=== PATIENT | male | born 1940 | race Caucasian/White ===

== ENCOUNTER 2016-12-04 21:52 | Emergency (ER) | payer OTHER ==
[~2016-12-04 21:52] MED LIST: ACET325T16 PO; AMOX1TAB11 PO; AMOX1TAB61 PO; Antacid PO; CEPH-264 PO; DOXY100T PO; LEVO25TA2 PO; LEVO25TA4 PO; LEVO50TA5 PO; LEVO75TA PO; Levothyroxine PO; MUPI15CR TP
[2016-12-04 22:02] VITALS: BP 146/83
[2016-12-04] MEDS ORDERED: IPRATRPIUM/ALBUTEROL 0.5/2.5MG 3 ML NEBU. NEB ONE (23:00)
[2016-12-04] MEDS ORDERED: AZIT250T PO (23:01)
[2016-12-04] MEDS ORDERED: PROVENTIL HFA6.7 GM IH (23:01)
--- NOTE | 2016-12-04 23:01 | PHYS DOC ---
Past Medical History Past Medical History: CVA, Hypothyroid, Other Additional Past Medical Histor: LOW HEART RHYTHM Past Surgical History: Other Additional Past Surgical Histo: HERNIA REPAIR, ingrown toe yaz, HEART MONITOR Alcohol Use: None Drug Use: None Adult General Chief Complaint Chief Complaint: COUGH HPI HPI 76-year-old male presents with 3-4 day history of cough. He states his son is been sick with an upper respiratory infection he thinks he's caught something from him. He states he doesn't typically have a lot of lung issues. Denies any fever chills sweats or hemoptysis. [] Review of Systems Review of Systems Constitutional: Denies fever or chills [] Eyes: Denies change in visual acuity, redness, or eye pain [] HENT: Denies nasal congestion or sore throat [] Respiratory: Denies cough or shortness of breath [] Cardiovascular: No additional information not addressed in HPI [] GI: Denies abdominal pain, nausea, vomiting, bloody stools or diarrhea [] : Denies dysuria or hematuria [] Musculoskeletal: Denies back pain or joint pain [] Integument: Denies rash or skin lesions [] Neurologic: Denies headache, focal weakness or sensory changes [] Endocrine: Denies polyuria or polydipsia [] Current Medications Current Medications Current Medications Medications (Trade) Dose Ordered Sig/Manny Start Time Stop Time Status Last Admin Dose Admin Albuterol/ Ipratropium (Duoneb) 3 ml 1X ONCE 12/04/16 23:00 12/04/16 23:01 12/04/16 22:36 3 ML Allergies Allergies Allergies Coded Allergies Type Severity Reaction Last Updated Verified chlorpheniramine Allergy Intermediate 07/03/16 Yes oxymetazoline Allergy Intermediate 07/03/16 Yes pheniramine Allergy Intermediate 07/03/16 Yes phenylephrine Allergy Intermediate 07/03/16 Yes pseudoephedrine Allergy Intermediate 07/03/16 Yes Physical Exam Physical Exam Constitutional: Well developed, well nourished, no acute distress, non-toxic appearance. [] HENT: Normocephalic, atraumatic, bilateral external ears normal, oropharynx moist, no oral exudates, nose normal. [] Eyes: PERRLA, EOMI, conjunctiva normal, no discharge. [] Neck: Normal range of motion, no tenderness, supple, no stridor. [] Cardiovascular:Heart rate regular rhythm, no murmur [] Lungs & Thorax: Mild apical wheezing [] Abdomen: Bowel sounds normal, soft, no tenderness, no masses, no pulsatile masses. [] Skin: Warm, dry, no erythema, no rash. [] Back: No tenderness, no CVA tenderness. [] Extremities: No tenderness, no cyanosis, no clubbing, ROM intact, no edema. [] Neurologic: Alert and oriented X 3, normal motor function, normal sensory function, no focal deficits noted. [] Psychologic: Affect normal, judgement normal, mood normal. [] Current Patient Data Vital Signs Vital Signs Date Time Temp Pulse Resp B/P Pulse Ox O2 Delivery O2 Flow Rate FiO2 12/04/16 22:34 95 Room Air 12/04/16 22:02 99.2 80 16 146/83 99.2 EKG EKG [] Radiology/Procedures Radiology/Procedures [] Impressions: Chest x-ray: No acute process as interpreted by me Course & Med Decision Making Course & Med Decision Making Pertinent Labs and Imaging studies reviewed. (See chart for details) [ED course: Evaluation reveals 76-year-old male in no significant distress. He did have some wheezing and was given a DuoNeb which did help alleviate his symptoms. Fill the patient is stable for discharge home] Dragon Disclaimer Dragon Disclaimer This electronic medical record was generated, in whole or in part, using a voice recognition dictation system. Departure Departure Impression: Primary Impression: Cough Disposition: 01 HOME, SELF-CARE Condition: STABLE Referrals: ANUM CESPEDES MD (PCP) Patient Instructions: Bronchitis Additional Instructions: Thank you for allowing us to participate in your care today. Followup with your primary care physician in 3 days if your symptoms do not improve. Return to the emergency department you have any new or concerning findings. This should be evaluated by the primary care physician and any necessary consulting services for continued management within a few days after discharge. Return to emergency room if you have any new or concerning symptoms including but not limited to fever, chills, nausea, vomiting, intractable pain, any new rashes, chest pain, shortness of air, uncontrolled bleeding, difficulty breathing, and/or vision loss. You may have been prescribed medication that can change in your level of thinking and ability to operate machinery. These medications include hydrocodone and Ativan. Also, Benadryl has been known to do this as well. Be sure to check with your pharmacist and ask if the medications you've prescribed can affect your level of consciousness. I recommend not operating heavy machinery or driving while on medication such as these. Scripts Albuterol Sulfate (Proventil Hfa Inhaler)6.7 Gm Hfa.aer.ad1 Puff IH PRN Q4HRS PRN bronchitis #1 INHALER NS Prov:JERMAINE NGUYEN DO 12/04/16 Azithromycin (Zithromax)250 Mg Tablet1 Pkg PO UD bronchitis #6 TAB Take 2 tablets on day 1 and then 1 tablet each day for the next 4 days as directed Prov:JERMAINE NGUYEN DO 12/04/16 JERMAINE NGUYEN DO Dec 04, 2016 23:01
--- NOTE | 2016-12-05 07:52 | RAD ---
EXAM: Chest, single view. HISTORY: Cough. COMPARISON: 07/02/2016. FINDINGS: A frontal view of the chest is obtained. There is no infiltrate, effusion or pneumothorax. The heart is normal in size. There is a cardiac event monitor overlying the left thorax. IMPRESSION: No acute pulmonary finding.
== END 2016-12-05 00:43 | disposition home or self-care (01) ==
LOC: ER 21:52
DX: R05 Cough (principal); R06.2 Wheezing; E03.9 Hypothyroidism, unspecified; Z88.8 Allergy status to other drugs, medicaments and biological substances; Z86.73 Personal history of transient ischemic attack (TIA), and cerebral infarction without residual deficits
CPT/HCPCS: 71010; 94250; 94640; 99283; J7620

== ENCOUNTER 2017-01-21 21:50 | Inpatient (IN) | payer OTHER ==
[~2017-01-21] VITALS: Ht 188 cm; Wt 87.3 kg
[~2017-01-21 21:50] MED LIST changes: +AZIT250T PO; +PROVENTIL HFA6.7 GM IH
[2017-01-21 22:32] LABS: BASO # 0.1 x10^3/uL (0.0-0.2); BASO % 1 % (0-3); EOS % 2 % (0-3); HEMATOCRIT 36.4 % (39.0-53.0); HEMOGLOBIN 12.5 g/dL (13.0-17.5); LYMPH # 2.4 x10^3/uL (1.0-4.8); LYMPH % 40 % (24-48); MEAN CORPUSCULAR HEMOGLOBIN 33 pg (25-35); MEAN CORPUSCULAR HGB CONC 35 g/dL (31-37); MEAN CORPUSCULAR VOLUME 95 fL (79-100); MONO % 12 % (0-9); NEUT % 45 % (31-73); PLATELET COUNT 160 x10^3/uL (140-400); RED BLOOD COUNT 3.82 x10^6/uL (4.30-5.70); RED CELL DISTRIBUTION WIDTH 13.9 % (11.5-14.5); WHITE BLOOD COUNT 6.2 x10^3/uL (4.0-11.0)
[2017-01-21 22:43] LABS: CALCIUM 8.8 mg/dL (8.5-10.1); GFR 72.6; POTASSIUM 3.8 mmol/L (3.5-5.1)
[2017-01-21 22:49] LABS: ALBUMIN 3.6 g/dL (3.4-5.0); ALBUMIN/GLOBULIN RATIO 1.1 (1.0-1.7); TOTAL BILIRUBIN 0.5 mg/dL (0.2-1.0)
[2017-01-21] MEDS ORDERED: NITROGLYCERIN SUBLINGUAL 0.4 MG BOTTLE OF 25. SL PRN (23:15)
[2017-01-21] MEDS ORDERED: MORPHINE SULFATE 4 MG/ML DISP.SYRIN. IV PRN (23:15)
[2017-01-21] MEDS ORDERED: ONDANSETRON PF 4 MG/2 ML VIAL. IV PRN (23:15)
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
[2017-01-22] VITALS (7 sets, daily range): BP systolic 98–133; BP diastolic 51–83
--- NOTE | 2017-01-22 07:27 | EKG ---
[facility] [address] [place] [address] Test Date: 2017-01-21 Test Time: 21:57:22 Pat Name: DIMITRI PIZANO Department: Room: [facility] Gender: M Vp & General Counsel: : 1940 Requested By: JERMAINE NGUYEN Order Number: [id number] Reading MD: Phillip Reyes Measurements Intervals [place] Rate: 66 P: 90 CT: 202 QRS: -2 QRSD: 130 T: 107 QT: 444 QTc: 467 Interpretive Statements SINUS RHYTHM PVCS LBBB Electronically Signed On 01-28-2017 10:47:15 [employer]OCKSTITCH by Phillip Reyes
--- NOTE | 2017-01-22 07:50 | RAD ---
Exam performed: One view chest. Indication: chest pain Date of Service: 01/22/2017 12:24 AM Comparison: 12/04/16. Single AP upright portable view chest findings: Cardiomediastinal silhouette is within upper limits of normal. No acute infiltrates, effusion or pneumothorax is detected. The bony structures are normal. Impression: No acute cardiopulmonary process is detected.
[2017-01-22] MEDS ORDERED: ACETAMINOPHEN 325 MG TABLET. PO PRN (08:30)
[2017-01-22] MEDS ORDERED: NITROGLYCERIN SUBLINGUAL 0.4 MG BOTTLE OF 25. SL PRN (08:30)
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
[2017-01-22] MEDS: ALBUTEROL SULFATE 2.5 MG/3 ML NEBU. NEB SCH ×3 (09:00→20:25)
[2017-01-22] MEDS: LEVOTHYROXINE 50 MCG TABLET PO SCH (09:00)
[2017-01-22] MEDS: PANTOPRAZOLE 40 MG TABLET. PO SCH (10:00)
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
--- NOTE | 2017-01-22 10:26 | EKG ---
[address] [place] [address] Test Date: 2017-01-22 Test Time: 10:25:28 Pat Name: DIMITRI PIZANO Department: Room: [facility] Gender: M Senior Data Modeler: LEANNA : 1940 Requested By: EMMANUELLE VEE Order Number: [id number] Reading MD: Phillip Reyes Measurements Intervals [place] Rate: 50 P: 58 MT: 216 QRS: -2 QRSD: 120 T: 34 QT: 472 QTc: 433 Interpretive Statements SINUS RHYTHM, RATE 50 LEFTWARD AXIS LOW LIMB LEAD VOLTAGE QRS(T) CONTOUR ABNORMALITY CONSISTENT WITH ANTERIOR INFARCT PROBABLY OLD T ABNORMALITY IN HIGH LATERAL LEADS ABNORMAL ECG RI6.01 Electronically Signed On 01-28-2017 10:52:19 SENIOR LOSS CONTROL SPECIALIST by Phillip Reyes
[2017-01-22] MEDS ORDERED: REGADENOSON 0.4 MG/5 ML DISP.SYRIN. IV ONE (11:30)
--- NOTE | 2017-01-22 14:27 | CARD ---
APPROVED REPORT EXAM: Two-dimensional and M-mode echocardiogram with Doppler and color Doppler. Other Information Quality : Good INDICATION Dyspnea Chest Pain 2D DIMENSIONS RVDd2.9 (2.9-3.5cm)Left Atrium(2D)3.5 (1.6-4.0cm) IVSd1.4 (0.7-1.1cm)Aortic Root(2D)3.2 (2.0-3.7cm) LVDd4.8 (3.9-5.9cm)LVOT Diameter2.0 (1.8-2.4cm) PWd1.1 (0.7-1.1cm)LVDs3.4 (2.5-4.0cm) FS (%) 27.9 %SV57.1 ml LVEF(%)55.0 (>50%) Aortic Valve AoV Peak David.189.3cm/sAoV VTI38.4cm AO Peak GR.14.3mmHgLVOT Peak David.143.6cm/s AO Mean GR.7mmHgAVA (VMAX)2.43cm2 AMY (VTI)2.60cm2 Mitral Valve MV E Fbbbeeeq63.1cm/sMV DECEL IGHY732kx MV A Tgcckezi35.1cm/sE/A Ratio0.9 Tricuspid Valve TR P. [id number]/sRAP [id number] TR Peak Gr.93urPvMCDL54duMx LEFT VENTRICLE The left ventricle is normal size. There is mild asymmetric septal hypertrophy. The left ventricular systolic function is normal. The Ejection Fraction is 60-65%. There is normal LV segmental wall motio n. Transmitral Doppler flow pattern is Grade I-abnormal relaxation pattern. RIGHT VENTRICLE The right ventricle is normal size. The right ventricular systolic function is normal. ATRIA The left atrium size is normal. The right atrium size is normal. The interatrial septum is intact wit h no evidence for an atrial septal defect or patent foramen ovale as noted on 2-D or Doppler imaging. AORTIC VALVE The aortic valve is mildly thickened but opens well. Doppler and Color Flow revealed no significant a ortic regurgitation. There is no significant aortic valvular stenosis. MITRAL VALVE The mitral valve is normal in structure and function. There is no evidence of mitral valve prolapse. There is no mitral valve stenosis. Doppler and Color-flow revealed mild mitral regurgitation. TRICUSPID VALVE The tricuspid valve is normal in structure and function. Doppler and Color Flow revealed mild tricusp id regurgitation. There is mild pulmonary hypertension. The PA pressure was estimated at 35 mmHg. The re is no tricuspid valve stenosis. PULMONIC VALVE The pulmonary valve is normal in structure and function. Doppler and Color Flow revealed trace pulmon ic valvular regurgitation. There is no pulmonic valvular stenosis. GREAT VESSELS The aortic root is normal in size. The ascending aorta is normal in size. The IVC is normal in size a nd collapses >50% with inspiration. PERICARDIAL EFFUSION There is no evidence of significant pericardial effusion. Critical Notification Critical Value: No <Conclusion> The left ventricular systolic function is normal. The Ejection Fraction is 60-65%. There is normal LV segmental wall motion. Mild mitral regurgitation. Mild tricuspid regurgitation. There is mild pulmonary hypertension. The PA pressure was estimated at 35 mmHg. There is no evidence of significant pericardial effusion.
--- NOTE | 2017-01-23 00:04 | ACF ---
Admission Forms Criteria CARDIOLOGY GRG Clinical Indications for Admission to Inpatient Care ( Place 'X' for any and all applicable criteria): Hospital admission is needed for appropriate care of the patient because of ANY ONE of the following (1): [ ] I. Hemodynamic instability as indicated by ALL of the following (1)(2)(3) (4)(5) [ ]a) Vital signs or other findings not as expected for chronic patient condition or baseline [ ]b) Instability indicated by ANY ONE of the following: [ ]i) Hypotension [ ]ii) Symptomatic Tachycardia unresponsive to treatment ( e.g., analgesia, fluids, sedation as indicated) [ ]iii) Inadequate perfusion indicated by ANY ONE of the following: [ ] 1) Lactic acidosis (> 2 mmol/L) [ ] 2) New abnormal capillary refill (> 3 seconds) [ ] 3) Reduced urine output [ ] 4) New altered mental status [ ]iv) Orthostatic vital sign changes unresponsive to treatment (e.g., fluids) [ ]v) IV inotropic or vasopressor medication required to maintain adequate blood pressure or perfusion [ ] II. Severe heart failure as indicated by ANY ONE of the following(17)(18) [ ]a) Respiratory distress [ ]b) Hypotension [ ]c) Anasarca (refractory to outpatient therapy) [ ]d) Cardiac arrhythmias of immediate concern [ ]e) Myocardial ischemia [ ] III. Cardiac arrhythmias or findings of immediate concern indicated by ANY ONE of the following (19)(20): [ ] a) Heart rhythms that are inherently dangerous or unstable indicated by ANY ONE of the following (21)(22)(23): [ ] i) Resuscitated ventricular fibrillation or cardiac arrest [ ] ii) Ventricular escape rhythm [ ] iii) Sustained ventricular tachycardia (30 seconds or more of ventricular rhythm at greater than 100 beats per minute) [ ] iv) Nonsustained ventricular tachycardia and ANY ONE of the following: [ ] 1) Suspected cardiac ischemia as cause or consequence of ventricular tachycardia [ ] 2) In setting of acute myocarditis [ ] b) Unstable cardiac conduction defects indicated by ANY ONE of the following(23)(24)(25) [ ] i) Type II second-degree atrioventricular block [ ]ii) Third-degree atrioventricular block [ ]iii) New-onset left bundle branch block with suspected myocardial ischemia [ ]c) Any heart rhythm and ANY ONE of the following (21)(22)(26)(27) (28) [ ] i) Continuous long-term ECG monitoring needed (e.g., initiation of drug requiring monitoring for more than 24 hours) [ ] ii) Patient has automatic implanted cardioverter defibrillator that is repeatedly firing, malfunctioning, or in need of immediate adjustment of settings beyond the scope of ambulatory or observation care [ ]d) Heart rhythms of concern due to ANY ONE of the following: [ ] i) Hypotension [ ] ii) Respiratory distress [ ] iii) Association with other significant symptoms (e.g., bradycardia with syncope or ongoing dizziness, supraventricular tachycardia with chest pain (14)(15)(17) [ ] IV. Monitoring for cardiac contusion beyond the scope of observation care needed [A](30)(31)(32) [ ] V. Surgical or device complication (e.g., valve replacement complication , pacemaker dysfunction) (35)(41)(44)(45)(46) [ ] . Inpatient palliative care needed. [B](49) Also use Inpatient Palliative Care Criteria [ ] VII. Nonbacterial thrombotic (marantic) endocarditis (36)(43)(47)(48) [X] VIII. Cardiology condition, symptom, or finding for which emergency and observation care has failed or are not considered appropriate. [ ] IX. Acute valvular disease requiring inpatient as indicated by ANY ONE of the following (41) [ ]a) Acute valvular regurgitation (42) [ ]b) Noninfectious valvulitis (43) [ ]c) Obstructive valve thrombosis [ ]d) Paravalvular leak [ ]e) Other significant valvular disorder remaining after emergency or observation level of care (as appropriate) [ ]X. Pericardial disease requiring inpatient treatment as indicated by ANY ONE of the following (33)(34)(35)(36)(37) [ ]a) Suspected tamponade (38)(39)(40) [ ]b) Hemopericardium [ ]c) Other significant pericardial disorder remaining after emergency or observation level of care (as appropriate) [ ] XI. Cardiac ischemia beyond scope of emergency and observation care. [ ] XII. Hypertension requiring inpatient treatment as indicated by ANY ONE of the following (6)(7)(8) [ ]a) SBP greater than 220 mm Hg or DBP greater than 120 mmHg despite treatment [ ]b) SBP greater than 140 mm Hg or DBP greater than 100 mm Hg with evidence of acute end organ damage as indicated by ANY ONE of the following [ ] i) Encephalopathy [ ] ii) Acute renal failure as indicated by new onset of ANY ONE of the following (9)(10)(11)(12)(13) [ ]1) 3-fold rise in serum creatinine from baseline [ ]2) Serum creatinine greater than 4 mg/dL ( 354 micromoles/L) with acute rise greater than 0.5 mg/dL (44.2 micromoles/L) [ ]3) Reduction of more than 75% in estimated glomerular filtration rate from baseline [ ]4) Estimated glomerular filtration rate less than 35 mL/min/1.73m2 (0.59 mL/sec/1.73m2) in child up to 18 years of age [ ]5) Cessation of urine output indicated by ALL of the following [ ]A. Adequate volume status [ ]B. Inadequate urine output as indicated by ANY ONE of the following [ ]a. Urine output less than 0.3 mL/kg/hr for 24 hours [ ]b. Anuria (urine output less than 0.1 mL/kg/hr) for 12 hours [ ] iii) Aortic dissection [ ] iv) Myocardial Ischemia [ ] v) Left ventricular heart failure [ ]vi) Retinal Hemorrhage [ ]vii) Other significant finding [ ]c) Hypertension in child requiring inpatient treatment as indicated by ALL of the following(14)(15)(16) [ ] i) Outpatient treatment not effective, not available, or not appropriate [ ]ii) SBP or DBP greater than 95th percentile for age [ ]iii) Evidence of acute end organ damage as indicated by ANY ONE of the following [ ]1) Altered mental status [ ]2) Acute renal failure as indicated by new onset of ANY ONE of the following(9)(10)(11)(12)(13) [ ]A. 3-fold rise in serum creatinine from baseline [ ]B. Serum creatinine greater than 4 mg/dL (354 micromoles/L) with acute rise greater than 0.5 mg/dL (44.2 micromoles/L) [ ]C. Reduction of more than 75% in estimated glomerular filtration rate from baseline [ ]D. Estimated glomerular filtration rate less than 35 mL/min/1.73m2 (0.59 mL/sec/1.73m2) in child up to 18 years of age [ ]E. Cessation of urine output indicated by ALL of the following [ ]a. Adequate volume status [ ]b. Inadequate urine output as indicated by ANY ONE of the following [ ]i) Urine output less than 0.3 mL/kg/hr for 24 hours [ ]ii) Anuria ( urine output less than 0.1 mL/kg/hr) for 12 hours [ ]3) Severe headache [ ]4) Visual disturbance [ ]5) Retinal hemorrhage [ ]6) Other significant finding [ ]XIII. Complications of transplanted heart indicated by ANY ONE of the following(61): [ ]a) Acute graft rejection requiring inpatient management (eg, intravenous immunosuppression)(62)(63) [ ]b) Acute graft heart failure indicated by ANY ONE of the following(64): [ ]i) Hemodynamic instability [ ]ii) Cardiac arrhythmias of immediate concern [ ]iii) Pulmonary edema that is very severe (eg, mechanical ventilation needed, imminent or likely, need for 100% oxygen to keep oxygen saturation above 90%) [ ]iv) Pulmonary edema that is persistent as indicated by ALL of the following: [ ]1) New need for oxygen therapy to keep oxygen saturation above 90% (or increased FiO2 need from baseline) [ ]2) Has not improved sufficiently with emergency department or observation care IV diuretics or other heart failure treatments[E] [ ]v) Altered mental status that is severe or persistent [ ]vi) Increased creatinine (new on laboratory test) with reduction of more than 50% in estimated glomerular filtration rate from baseline [ ]vii) Progressively (ongoing) rising creatinine (known from past laboratory test) with reduction of more than 25% in estimated glomerular filtration rate from baseline [ ]viii) Acute renal failure [ ]ix) Acute peripheral ischemia (eg, examination shows pulseless, cool, mottled, or cyanotic extremity) [ ]x) Pulmonary artery catheter monitoring needed [ ]xi) Other sign or symptom of heart failure requiring inpatient treatment (ie, too severe or not responsive to outpatient and observation care treatment) [ ]c) Infection requiring inpatient management (eg, Hemodynamic instability, need for intravenous antimicrobial treatment)(66)(67)(68)(69)(70) [ ]d) Cardiac allograft vasculopathy requiring inpatient management ( eg evidence of cardiac ischemia)(71) [ ]e) Other complication of transplanted heart (eg, stroke, severe pulmonary hypertension, severe valvular dysfunction) requiring inpatient management(72) The original [facility] content created by [facility] has been revised. The portions of the content which have been revised are identified through the use of italic text or in bold, and [facility] has neither reviewed nor approved the modified material. All other unmodified content is copyright [facility]. Please see references footnoted in the original [facility] edition 2016 Admission Criteria Met?: Yes BREE HENDERSON Jan 23, 2017 00:04
[2017-01-23] MEDS: LEVOTHYROXINE 50 MCG TABLET PO SCH (05:37)
[2017-01-23 05:45] LABS: BASO % 1 % (0-3); EOS % 2 % (0-3); HEMATOCRIT 35.1 % (39.0-53.0); HEMOGLOBIN 12.1 g/dL (13.0-17.5); LYMPH % 44 % (24-48); MEAN CORPUSCULAR HEMOGLOBIN 33 pg (25-35); MEAN CORPUSCULAR HGB CONC 35 g/dL (31-37); MEAN CORPUSCULAR VOLUME 96 fL (79-100); MONO % 12 % (0-9); NEUT % 41 % (31-73); PLATELET COUNT 138 x10^3/uL (140-400); RED BLOOD COUNT 3.68 x10^6/uL (4.30-5.70); WHITE BLOOD COUNT 4.5 x10^3/uL (4.0-11.0)
[2017-01-23 06:01] LABS: CALCIUM 8.4 mg/dL (8.5-10.1); GFR 72.6; POTASSIUM 3.8 mmol/L (3.5-5.1)
[2017-01-23 06:07] LABS: CHOLESTEROL/HDL RATIO 3.4
[2017-01-23 07:15] VITALS: BP 99/63
[2017-01-23] MEDS: ALBUTEROL SULFATE 2.5 MG/3 ML NEBU. NEB SCH ×3 (07:20→15:06)
--- NOTE | 2017-01-23 07:59 | PDOC ---
EMMANUELLE VEE RESEARCH INTERVIEWER 01/23/17 0759: IM PROGRESS NOTES- Subjective Subjective no chest pain through night Objective Objective alert no distress Vitals Vital Signs Date Time Temp Pulse Resp B/P Pulse Ox O2 Delivery O2 Flow Rate FiO2 01/23/17 07:21 96 Room Air 01/22/17 23:00 98.6 56 18 133/59 98.6 Input & Output Intake and Output 01/23/17 07:00 Intake Total 2040 ml Balance 2040 ml Intake Oral 2040 ml # Voids 5 Physical Exam Physical Exam General appearance - alert,well appearing, and in no distress Mental Status - alert, oriented to person, place, and time, affect appropriate to mood Head - normal Chest - clear to auscultation, no wheezes, rales or rhonchi, symmetric air entry Heart - S1 and S2 normal Abdomen - soft, nontender, nondistended, BS+ Neurological - no acute focal neurological deficit noted Musculoskeletal - no muscular tenderness noted Extremities - lower leg swelling improved slightly, venous stasis changes chronic Skin - warm and dry Labs Laboratory Tests Test 01/21/17 22:05 01/22/17 05:05 01/22/17 11:00 01/23/17 04:50 White Blood Count 6.2x10^3/uL (4.0-11.0) 4.5x10^3/uL (4.0-11.0) Red Blood Count 3.82x10^6/uL (4.30-5.70) 3.68x10^6/uL (4.30-5.70) Hemoglobin 12.5g/dL (13.0-17.5) 12.1g/dL (13.0-17.5) Hematocrit 36.4% (39.0-53.0) 35.1% (39.0-53.0) Mean Corpuscular Volume 95fL (79-100) 96fL (79-100) Mean Corpuscular Hemoglobin 33pg (25-35) 33pg (25-35) Mean Corpuscular Hemoglobin Concent 35g/dL (31-37) 35g/dL (31-37) Red Cell Distribution Width 13.9% (11.5-14.5) 14.0% (11.5-14.5) Platelet Count 160x10^3/uL (140-400) 138x10^3/uL (140-400) Neutrophils (%) (Auto) 45% (31-73) 41% (31-73) Lymphocytes (%) (Auto) 40% (24-48) 44% (24-48) Monocytes (%) (Auto) 12% (0-9) 12% (0-9) Eosinophils (%) (Auto) 2% (0-3) 2% (0-3) Basophils (%) (Auto) 1% (0-3) 1% (0-3) Neutrophils # (Auto) 2.8x10^3uL (1.8-7.7) 1.8x10^3uL (1.8-7.7) Lymphocytes # (Auto) 2.4x10^3/uL (1.0-4.8) 2.0x10^3/uL (1.0-4.8) Monocytes # (Auto) 0.8x10^3/uL (0.0-1.1) 0.5x10^3/uL (0.0-1.1) Eosinophils # (Auto) 0.1x10^3/uL (0.0-0.7) 0.1x10^3/uL (0.0-0.7) Basophils # (Auto) 0.1x10^3/uL (0.0-0.2) 0.0x10^3/uL (0.0-0.2) Sodium Level 143mmol/L (136-145) 146mmol/L (136-145) Potassium Level 3.8mmol/L (3.5-5.1) 3.8mmol/L (3.5-5.1) Chloride Level 105mmol/L (98-107) 111mmol/L (98-107) Carbon Dioxide Level 29mmol/L (21-32) 26mmol/L (21-32) Anion Gap 9 (6-14) 9 (6-14) Blood Urea Nitrogen 14mg/dL (8-26) 10mg/dL (8-26) Creatinine 1.0mg/dL (0.7-1.3) 1.0mg/dL (0.7-1.3) Estimated GFR (Cockcroft-Gault) 72.6 72.6 BUN/Creatinine Ratio 14 (6-20) Glucose Level 94mg/dL (70-99) 105mg/dL (70-99) Calcium Level 8.8mg/dL (8.5-10.1) 8.4mg/dL (8.5-10.1) Total Bilirubin 0.5mg/dL (0.2-1.0) Aspartate Amino Transf (AST/SGOT) 31U/L (15-37) Alanine Aminotransferase (ALT/SGPT) 29U/L (16-63) Alkaline Phosphatase 61U/L (46-116) Troponin I Quantitative 0.024ng/mL (0.000-0.055) < 0.017ng/mL (0.000-0.055) 0.023ng/mL (0.000-0.055) Total Protein 7.0g/dL (6.4-8.2) Albumin 3.6g/dL (3.4-5.0) Albumin/Globulin Ratio 1.1 (1.0-1.7) Triglycerides Level 66mg/dL (0-150) Cholesterol Level 152mg/dL (0-200) LDL Cholesterol, Calculated 94mg/dL (0-100) VLDL Cholesterol, Calculated 13mg/dL (0-40) HDL Cholesterol 45mg/dL (40-60) Cholesterol/HDL Ratio 3.4 Laboratory Tests Test 01/22/17 11:00 01/23/17 04:50 Troponin I Quantitative 0.023ng/mL (0.000-0.055) White Blood Count 4.5x10^3/uL (4.0-11.0) Red Blood Count 3.68x10^6/uL (4.30-5.70) Hemoglobin 12.1g/dL (13.0-17.5) Hematocrit 35.1% (39.0-53.0) Mean Corpuscular Volume 96fL (79-100) Mean Corpuscular Hemoglobin 33pg (25-35) Mean Corpuscular Hemoglobin Concent 35g/dL (31-37) Red Cell Distribution Width 14.0% (11.5-14.5) Platelet Count 138x10^3/uL (140-400) Neutrophils (%) (Auto) 41% (31-73) Lymphocytes (%) (Auto) 44% (24-48) Monocytes (%) (Auto) 12% (0-9) Eosinophils (%) (Auto) 2% (0-3) Basophils (%) (Auto) 1% (0-3) Neutrophils # (Auto) 1.8x10^3uL (1.8-7.7) Lymphocytes # (Auto) 2.0x10^3/uL (1.0-4.8) Monocytes # (Auto) 0.5x10^3/uL (0.0-1.1) Eosinophils # (Auto) 0.1x10^3/uL (0.0-0.7) Basophils # (Auto) 0.0x10^3/uL (0.0-0.2) Sodium Level 146mmol/L (136-145) Potassium Level 3.8mmol/L (3.5-5.1) Chloride Level 111mmol/L (98-107) Carbon Dioxide Level 26mmol/L (21-32) Anion Gap 9 (6-14) Blood Urea Nitrogen 10mg/dL (8-26) Creatinine 1.0mg/dL (0.7-1.3) Estimated GFR (Cockcroft-Gault) 72.6 Glucose Level 105mg/dL (70-99) Calcium Level 8.4mg/dL (8.5-10.1) Triglycerides Level 66mg/dL (0-150) Cholesterol Level 152mg/dL (0-200) LDL Cholesterol, Calculated 94mg/dL (0-100) VLDL Cholesterol, Calculated 13mg/dL (0-40) HDL Cholesterol 45mg/dL (40-60) Cholesterol/HDL Ratio 3.4 Meds Current Medications Acetaminophen (Tylenol) 650 mg PRN Q6HRS PRN PO MILD PAIN / TEMP; Start at 08:30 Albuterol Sulfate (Ventolin Neb Soln) 2.5 mg RTQID NEB Last administered on 01/23 07:20; Start 01/22/17 at 09:00 Aspirin (Ecotrin) 81 mg DAILYWBKFT PO ; Start 01/23/17 at 08:00 Levothyroxine Sodium (Synthroid) 50 mcg DAILY06 PO Last administered on 05:37; Start 01/22/17 at 09:00 Nitroglycerin (Nitrostat) 0.4 mg PRN Q5MIN PRN SL CHEST PAIN; Start 01/22/17 at 08:30 Pantoprazole Sodium (Protonix) 40 mg DAILYAC PO ; Start 01/22/17 at 10:00 Regadenoson (Lexiscan) 0.4 mg 1X ONCE IV ; Start 01/22/17 at 11:30; Stop at 11:31; Status DC Assessment Assessment Impression: 1. chest pain 2. hypothyroidism 3. GERD 4. HH 5. allergic rhinitis 6. 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 borderline CM ECHO EF 60-65% 8. anemia chronic disease 9 mild MR TR 10. mild pulmonary HTN 11. chronic moderate PCL malnutrition 12. chronic venous stasis bilateral LE with swelling 13. h/o loop recorder PLAN: chest pain cardiology consult ECHO EF 60-65% mild MR TR mild pulmonary HTN Admit troponin 0.024 01/22 0.017 EKG SR admit NTG prn not on telemetry -no telemetry boxes available per staff-telemetry on 01/23 SR with PVCs unifocal MPI pending loop recorder interrogation pending shortness of breath exposure to smoke/mold begin albuterol nebulizer qid-hold proair CXR clear Breath sounds clear hypothyroid continue meds anemia CD Admit Hgb 12.5 01/23 12.1 monitor DVT/GI prophylaxis SCD/JAZMYN PPI swelling/stasis dermatitis bilateral legs chronic For further plan of care, please refer to the orders. Plan Plan For more details regarding further plans, please refer to the orders. ANUM CESPEDES MD 01/23/17 0953: IM PROGRESS NOTES- Assessment Assessment Improving. Discharge later today if stress test ok. The patient was seen and examined by me. Chart reviewed and plan of care formulated. Discussed with, reviewed and agree with PRECISION [employer]CRAFT SYSTEMS ASSEMBLER's notes, plan of care and orders with modifications as necessary. Discharge Management - 35 minutes. EMMANUELLE VEE APRN Jan 23, 2017 07:59 ANUM CESPEDES MD Jan 23, 2017 09:53
[2017-01-23] MEDS ORDERED: ASPIRIN ENTERIC COATED 81 MG TABLET.DR. PO SCH (08:00)
--- NOTE | 2017-01-23 08:00 | DISCH ---
DISCHARGE INSTRUCTIONS Condition on Discharge Condition on Discharge: Stable Activity After Discharge Activity Instructions for Disc: Activity as tolerated Diet after Discharge Diet after Discharge: Cardiac Contacting the DRPadmini after DC Call your doctor for: Concerns you may have Follow-Up Follow up with: Dr. Light or Fran in 3 days EMMANUELLE VEE APRN Jan 23, 2017 08:00
[2017-01-23] MEDS ORDERED: ASPI81TA9 PO (08:01)
[2017-01-23] MEDS ORDERED: REGADENOSON 0.4 MG/5 ML DISP.SYRIN. IV ONE (08:45)
[2017-01-23] MEDS: PANTOPRAZOLE 40 MG TABLET. PO SCH (10:18)
--- NOTE | 2017-01-23 10:48 | PDOC ---
CARDIO Progress Notes Date and Time Date of Service 01/23/2017 Time of Evaluation 1000 Subjective Subjective: No Chest Pain, No shortness of breath, No Palpitations, No Dizziness Vitals Vitals Vital Signs Date Time Temp Pulse Resp B/P Pulse Ox O2 Delivery O2 Flow Rate FiO2 01/23/17 07:21 96 Room Air 01/23/17 07:15 97.5 79 20 99/63 97.5 Weight Weight [ ] Input and Output Intake and Output Intake and Output 01/23/17 07:00 Intake Total 2040 ml Balance 2040 ml Intake Oral 2040 ml # Voids 5 Laboratory Labs Laboratory Tests Test 01/22/17 11:00 01/23/17 04:50 Troponin I Quantitative 0.023ng/mL (0.000-0.055) White Blood Count 4.5x10^3/uL (4.0-11.0) Red Blood Count 3.68x10^6/uL (4.30-5.70) Hemoglobin 12.1g/dL (13.0-17.5) Hematocrit 35.1% (39.0-53.0) Mean Corpuscular Volume 96fL (79-100) Mean Corpuscular Hemoglobin 33pg (25-35) Mean Corpuscular Hemoglobin Concent 35g/dL (31-37) Red Cell Distribution Width 14.0% (11.5-14.5) Platelet Count 138x10^3/uL (140-400) Neutrophils (%) (Auto) 41% (31-73) Lymphocytes (%) (Auto) 44% (24-48) Monocytes (%) (Auto) 12% (0-9) Eosinophils (%) (Auto) 2% (0-3) Basophils (%) (Auto) 1% (0-3) Neutrophils # (Auto) 1.8x10^3uL (1.8-7.7) Lymphocytes # (Auto) 2.0x10^3/uL (1.0-4.8) Monocytes # (Auto) 0.5x10^3/uL (0.0-1.1) Eosinophils # (Auto) 0.1x10^3/uL (0.0-0.7) Basophils # (Auto) 0.0x10^3/uL (0.0-0.2) Sodium Level 146mmol/L (136-145) Potassium Level 3.8mmol/L (3.5-5.1) Chloride Level 111mmol/L (98-107) Carbon Dioxide Level 26mmol/L (21-32) Anion Gap 9 (6-14) Blood Urea Nitrogen 10mg/dL (8-26) Creatinine 1.0mg/dL (0.7-1.3) Estimated GFR (Cockcroft-Gault) 72.6 Glucose Level 105mg/dL (70-99) Calcium Level 8.4mg/dL (8.5-10.1) Triglycerides Level 66mg/dL (0-150) Cholesterol Level 152mg/dL (0-200) LDL Cholesterol, Calculated 94mg/dL (0-100) VLDL Cholesterol, Calculated 13mg/dL (0-40) HDL Cholesterol 45mg/dL (40-60) Cholesterol/HDL Ratio 3.4 Physical Exam HEENT: Neck Supple W Full Motion Chest: Symmetric LUNGS: Clear to Auscultation Heart: S1S2, RRR (SR with intermittent PVCs), murmurs (2/6 systolic murmur to LLS border) Abdomen: Soft N/T Extremities: No Calf Tenderness, Other (trace LE edema) Neurology: alert, oriented, follow commands, other (severely [place]) Assessment Assessment 1. Chest pain: EKG unchanged LBBB with first degree AV block. troponin series normal. CXR normal. Suspect noncardiac 2. [employer] loop recorder: 05/27/2014 for hx bradycardia presyncope. 3. PAFIB: New finding. noted x2 episodes in tele and noted via ILR interrogation. 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 Hypothyroidism: nontherapeutic TSH 5.4 6. Mold exposure 7. Hx of CVA Recommendations 1. MPI today to completely rule out ischemia (cancelled yesterday since pt ate) 2. Lipids controlled. LDL 98, start on low dose lipitor 3. ECASA 81 mg po daily for primary prevention 4. Warranting OAC/NOAC. discussed risks and benefits, refused and agreed with ASA. 5. Unable to place on BB/CCB due to hx of bradycardia 6. Continue with ILR, monitor as outpt and note if future PPM is warranted. 7. TTE normal wall motion with preserved EF. Further recommendation post MPI BRANT STANLEY APRN 1, 2017 10:48
[2017-01-23 11:06] VITALS: BP 104/59
[2017-01-23] MEDS ORDERED: ASPIRIN ENTERIC COATED 81 MG TABLET.DR. PO ONE (12:00)
--- NOTE | 2017-01-23 13:19 | RAD ---
APPROVED REPORT Test Type: Pharmacological Stress Nurse/Tech: ROBIN Gonzalez RN Test Indications: Chest pain Cardiac History: HTN, ICD, CVA see EHR Medications: see EHR Medical History: see EHR Resting ECG: SR with frequent PVC Resting Heart Rate: 76 bpm Resting Blood Pressure: 110/59mmHg Pretest Chest Pain: No chest pain Nurse/Tech Notes Lungs CTA, heart tones WNL Consent: The procedure was explained to the patient in lay terms. Informed consent was witnessed. Timur eout was entered into [employer]. History and Stress Test performed by RT Kori (R) (N) Pharm. Details Pharmacologic stress testing was performed using 0.4mg per 5ml of regadenoson given intravenously ove r 7-10 seconds. Stress Symptoms No chest pain or symptoms. POST EXERCISE Reason for Termination: Infusion complete Max HR: 101 bpm 82% of Maximum Predicted HR: 122 bpm Max Blood Pressure: 127/61mmHg Chest Pain: No. Arrhythmia: Yes. ST Change: No. INTERPRETATION Stress EKG Conclusion: Baseline EKG showed sinus rhythm with PVC's. No ischemic changes at peak stre ss. No arrhythmias. Imaging Protocol IMAGE PROTOCOL: Rest Tc-99m/stress Tc-99m 2 days Rest: Stress: Viability: Radiopharm.Tc99m [id number] Sestamibi Dose10.1mCi 33mCi Duration 15min. 10min. Img Date 01/22/2017 01/23/2017 Inj-Img [id number]. 60min. Rest Admin Site:IV - Left AntecubitalAdministrator:RT Kori (R)(N) Stress Admin Site: IV - Left AntecubitalAdministrator: MICHOACANO Benson STRESS DATA End Diast. Vol.81.0mlAv. Heart Rate81.0bpm End Syst. Vol.22.0mlCO Index BSA0.0L/min Myocardial Tcne641.0gEject. Kijzhyfg04.0% Stress Rates Pk. Fill Rate3.96EDV/secLVtime Pk. Fill 241.69msec Pk. Empty Rate5.45ESV/secLVtime Pk. Hpmnv782.57msec 11/27 Pk. Fill0.52EDV/sec Stress Scores Regional WT0.00Summed WT1.00 Regional WM0.00Summed WM1.00 Study quality was good. Left Ventricular size was Normal at Rest and Stress. Lung uptake was Normal. Left Ventricular ejection fraction is 73%. The rest and stress images show normal perfusion, normal contraction and thickening. LV Perf. Quant 17 Seg. SSS0.00 17 Seg. SRS0.00 17 Seg. SDS0.00 Stress Defect Extent (% LAD)0.00Rest Defect Extent (% LAD)0.00Rev. Defect Extent (% LAD)0.00 Stress Defect Extent (% LCX) 0.00Rest Defect Extent (% LCX)0.00Rev. Defect Extent (% LCX)0.00 Stress Defect Extent (% RCA)0.00Rest Defect Extent (% RCA)0.00Rev. Defect Extent (% RCA)0.00 Stress Defect Extent (% AYLA)0.00Rest Defect Extent (% AYLA)0.00Rev. Defect Extent (% AYLA)0.00 Conclusion 1. Regadenoson cardioisotope stress test did not show any evidence of ischemia or infarct. 2. Normal left ventricular systolic function with ejection fraction calculated at 73%. 3. Low risk for cardiac events.
[2017-01-23] MEDS ORDERED: ASPI-252 PO (14:29)
[2017-01-23 15:10] VITALS: BP 123/59
[2017-01-23] MEDS ORDERED: METOPROLOL SUCC 24HR ER 25 MG TAB.ER.24H. PO SCH (16:00)
[2017-01-23] MEDS ORDERED: METO25TA9 PO (16:00)
[2017-01-23] MEDS ORDERED: ATORVASTATIN CALCIUM 10 MG TABLET. PO SCH (21:00)
[2017-01-24] MEDS ORDERED: ASPIRIN ENTERIC COATED 325 MG TABLET.DR. PO SCH ×2 (08:00)
--- NOTE | 2017-01-24 10:07 | PDOC3 ---
IM DISCHARGE SUMMARY Date of Admission Date of Admission Date of Admission: Jan 21, 2017 at 23:10 Date of Discharge Date of Discharge 01/23/17 Primary Diagnosis Primary Diagnosis Assessment Assessment Impression: 1. chest pain 2. hypothyroidism 3. GERD 4. HH 5. allergic rhinitis 6. 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 borderline CM ECHO EF 60-65% 8. anemia chronic disease 9 mild MR TR 10. mild pulmonary HTN 11. chronic moderate PCL malnutrition 12. chronic venous stasis bilateral LE with swelling 13. h/o loop recorder Problems: Consults Consults Kayleigh Andrea MD Procedures Procedures APPROVED REPORT EXAM: Two-dimensional and M-mode echocardiogram with Doppler and color Doppler. Other Information Quality : Good INDICATION Dyspnea Chest Pain 2D DIMENSIONS RVDd 2.9 (2.9-3.5cm) Left Atrium(2D) 3.5 (1.6-4.0cm) IVSd 1.4 (0.7-1.1cm) Aortic Root(2D) 3.2 (2.0-3.7cm) LVDd 4.8 (3.9-5.9cm) LVOT Diameter 2.0 (1.8-2.4cm) PWd 1.1 (0.7-1.1cm) LVDs 3.4 (2.5-4.0cm) FS (%) 27.9 % SV 57.1 ml LVEF(%) 55.0 (>50%) Aortic Valve AoV Peak David. 189.3cm/s AoV VTI 38.4cm AO Peak GR. 14.3mmHg LVOT Peak David. 143.6cm/s AO Mean GR. 7mmHg AMY (VMAX) 2.43cm2 AMY (VTI) 2.60cm2 Mitral Valve MV E Velocity 75.1cm/s MV DECEL TIME 186ms MV A Velocity 82.1cm/s E/A Ratio 0.9 Tricuspid Valve TR P. Velocity 284cm/s RAP ESTIMATE 3mmHg TR Peak Gr. 32mmHg RVSP 35mmHg LEFT VENTRICLE The left ventricle is normal size. There is mild asymmetric septal hypertrophy. The left ventricular systolic function is normal. The Ejection Fraction is 60-65 %. There is normal LV segmental wall motion. Transmitral Doppler flow pattern is Grade I-abnormal relaxation pattern. RIGHT VENTRICLE The right ventricle is normal size. The right ventricular systolic function is normal. ATRIA The left atrium size is normal. The right atrium size is normal. The interatrial septum is intact with no evidence for an atrial septal defect or patent foramen ovale as noted on 2-D or Doppler imaging. AORTIC VALVE The aortic valve is mildly thickened but opens well. Doppler and Color Flow revealed no significant aortic regurgitation. There is no significant aortic valvular stenosis. MITRAL VALVE The mitral valve is normal in structure and function. There is no evidence of mitral valve prolapse. There is no mitral valve stenosis. Doppler and Color- flow revealed mild mitral regurgitation. TRICUSPID VALVE The tricuspid valve is normal in structure and function. Doppler and Color Flow revealed mild tricuspid regurgitation. There is mild pulmonary hypertension. The PA pressure was estimated at 35 mmHg. There is no tricuspid valve stenosis. PULMONIC VALVE The pulmonary valve is normal in structure and function. Doppler and Color Flow revealed trace pulmonic valvular regurgitation. There is no pulmonic valvular stenosis. GREAT VESSELS The aortic root is normal in size. The ascending aorta is normal in size. The IVC is normal in size and collapses >50% with inspiration. PERICARDIAL EFFUSION There is no evidence of significant pericardial effusion. Critical Notification Critical Value: No <Conclusion> The left ventricular systolic function is normal. The Ejection Fraction is 60-65%. There is normal LV segmental wall motion. Mild mitral regurgitation. Mild tricuspid regurgitation. There is mild pulmonary hypertension. The PA pressure was estimated at 35 mmHg. There is no evidence of significant pericardial effusion. DICTATED and SIGNED BY: KAYLEIGH ANDREA MD DATE: 01/22/17 1426 APPROVED REPORT Test Type: Pharmacological Stress Nurse/Tech: ROBIN Gonzalez RN Test Indications: Chest pain Cardiac History: HTN, ICD, CVA see EHR Medications: see EHR Medical History: see EHR Resting ECG: SR with frequent PVC Resting Heart Rate: 76 bpm Resting Blood Pressure: 110/59mmHg Pretest Chest Pain: No chest pain Nurse/Tech Notes Lungs CTA, heart tones WNL Consent: The procedure was explained to the patient in lay terms. Informed consent was witnessed. Timeout was entered into [employer]. History and Stress Test performed by RT Kori (Waldemar) (N) Pharm. Details Pharmacologic stress testing was performed using 0.4mg per 5ml of regadenoson given intravenously over 7-10 seconds. Stress Symptoms No chest pain or symptoms. POST EXERCISE Reason for Termination: Infusion complete Max HR: 101 bpm 82% of Maximum Predicted HR: 122 bpm Max Blood Pressure: 127/61mmHg Chest Pain: No. Arrhythmia: Yes. ST Change: No. INTERPRETATION Stress EKG Conclusion: Baseline EKG showed sinus rhythm with PVC's. No ischemic changes at peak stress. No arrhythmias. Imaging Protocol IMAGE PROTOCOL: Rest Tc-99m/stress Tc-99m 2 days Rest: Stress: Viability: Radiopharm. Tc99m Sestamibi Tc99m Sestamibi Dose 10.1mCi 33mCi Duration 15min. 10min. Img Date 01/22/2017 01/23/2017 Inj-Img Time 60min. 60min. Rest Admin Site: IV - Left Antecubital Clam Grower: RT Kori (R)(N ) Stress Admin Site: IV - Left Antecubital Clam Grower: MICHOACANO Benson STRESS DATA End Diast. Vol. 81.0ml Av. Heart Rate 81.0bpm End Syst. Vol. 22.0ml CO Index BSA 0.0L/min Myocardial Mass 128.0g Eject. Fraction 73.0% Stress Rates Pk. Fill Rate 3.96EDV/sec LVtime Pk. Fill 241.69msec Pk. Empty Rate 5.45ESV/sec LVtime Pk. Eject 113.57msec 1/3 Pk. Fill 0.52EDV/sec Stress Scores Regional WT 0.00 Summed WT 1.00 Regional WM 0.00 Summed WM 1.00 Study quality was good. Left Ventricular size was Normal at Rest and Stress. Lung uptake was Normal. Left Ventricular ejection fraction is 73%. The rest and stress images show normal perfusion, normal contraction and thickening. LV Perf. Quant 17 Seg. SSS 0.00 17 Seg. SRS 0.00 17 Seg. SDS 0.00 Stress Defect Extent (% LAD) 0.00 Rest Defect Extent (% LAD) 0.00 Rev. Defect Extent (% LAD) 0.00 Stress Defect Extent (% LCX) 0.00 Rest Defect Extent (% LCX) 0.00 Rev. Defect Extent (% LCX) 0.00 Stress Defect Extent (% RCA) 0.00 Rest Defect Extent (% RCA) 0.00 Rev. Defect Extent (% RCA) 0.00 Stress Defect Extent (% AYLA) 0.00 Rest Defect Extent (% AYLA) 0.00 Rev. Defect Extent (% AYLA) 0.00 Conclusion 1. Regadenoson cardioisotope stress test did not show any evidence of ischemia or infarct. 2. Normal left ventricular systolic function with ejection fraction calculated at 73%. 3. Low risk for cardiac events. DICTATED and SIGNED BY: KAYLEIGH ANDREA MD DATE: 01/23/17 0532 Labs Labs Laboratory Tests Test 01/21/17 22:05 01/22/17 05:05 01/22/17 11:00 01/23/17 04:50 White Blood Count 6.2x10^3/uL (4.0-11.0) 4.5x10^3/uL (4.0-11.0) Red Blood Count 3.82x10^6/uL (4.30-5.70) 3.68x10^6/uL (4.30-5.70) Hemoglobin 12.5g/dL (13.0-17.5) 12.1g/dL (13.0-17.5) Hematocrit 36.4% (39.0-53.0) 35.1% (39.0-53.0) Mean Corpuscular Volume 95fL (79-100) 96fL (79-100) Mean Corpuscular Hemoglobin 33pg (25-35) 33pg (25-35) Mean Corpuscular Hemoglobin Concent 35g/dL (31-37) 35g/dL (31-37) Red Cell Distribution Width 13.9% (11.5-14.5) 14.0% (11.5-14.5) Platelet Count 160x10^3/uL (140-400) 138x10^3/uL (140-400) Neutrophils (%) (Auto) 45% (31-73) 41% (31-73) Lymphocytes (%) (Auto) 40% (24-48) 44% (24-48) Monocytes (%) (Auto) 12% (0-9) 12% (0-9) Eosinophils (%) (Auto) 2% (0-3) 2% (0-3) Basophils (%) (Auto) 1% (0-3) 1% (0-3) Neutrophils # (Auto) 2.8x10^3uL (1.8-7.7) 1.8x10^3uL (1.8-7.7) Lymphocytes # (Auto) 2.4x10^3/uL (1.0-4.8) 2.0x10^3/uL (1.0-4.8) Monocytes # (Auto) 0.8x10^3/uL (0.0-1.1) 0.5x10^3/uL (0.0-1.1) Eosinophils # (Auto) 0.1x10^3/uL (0.0-0.7) 0.1x10^3/uL (0.0-0.7) Basophils # (Auto) 0.1x10^3/uL (0.0-0.2) 0.0x10^3/uL (0.0-0.2) Sodium Level 143mmol/L (136-145) 146mmol/L (136-145) Potassium Level 3.8mmol/L (3.5-5.1) 3.8mmol/L (3.5-5.1) Chloride Level 105mmol/L (98-107) 111mmol/L (98-107) Carbon Dioxide Level 29mmol/L (21-32) 26mmol/L (21-32) Anion Gap 9 (6-14) 9 (6-14) Blood Urea Nitrogen 14mg/dL (8-26) 10mg/dL (8-26) Creatinine 1.0mg/dL (0.7-1.3) 1.0mg/dL (0.7-1.3) Estimated GFR (Cockcroft-Gault) 72.6 72.6 BUN/Creatinine Ratio 14 (6-20) Glucose Level 94mg/dL (70-99) 105mg/dL (70-99) Calcium Level 8.8mg/dL (8.5-10.1) 8.4mg/dL (8.5-10.1) Total Bilirubin 0.5mg/dL (0.2-1.0) Aspartate Amino Transf (AST/SGOT) 31U/L (15-37) Alanine Aminotransferase (ALT/SGPT) 29U/L (16-63) Alkaline Phosphatase 61U/L (46-116) Troponin I Quantitative 0.024ng/mL (0.000-0.055) < 0.017ng/mL (0.000-0.055) 0.023ng/mL (0.000-0.055) Total Protein 7.0g/dL (6.4-8.2) Albumin 3.6g/dL (3.4-5.0) Albumin/Globulin Ratio 1.1 (1.0-1.7) Triglycerides Level 66mg/dL (0-150) Cholesterol Level 152mg/dL (0-200) LDL Cholesterol, Calculated 94mg/dL (0-100) VLDL Cholesterol, Calculated 13mg/dL (0-40) HDL Cholesterol 45mg/dL (40-60) Cholesterol/HDL Ratio 3.4 Brief hospital course Brief hospital course This 76 year old male who presented with chest pain was admitted. The following is a summary of his treatment: chest pain cardiology consult ECHO EF 60-65% mild MR TR mild pulmonary HTN Admit troponin 0.024 01/22 0.017 EKG SR admit NTG prn not on telemetry -no telemetry boxes available per staff-telemetry on 01/23 SR with PVCs unifocal MPI pending loop recorder interrogation AF RVR emre with metoprolol tartrate 25mg bid, changed to metoprolol succ 25mg 1/2 tab per cardio at discharge shortness of breath exposure to smoke/mold begin albuterol nebulizer qid-hold proair CXR clear Breath sounds clear hypothyroid continue meds anemia CD Admit Hgb 12.5 01/23 12.1 monitor DVT/GI prophylaxis SCD/JAZMYN PPI swelling/stasis dermatitis bilateral legs chronic For more details regarding the past history, family history, social history, surgical history and other details, please refer to History and Physical. MPI stress test was negative for cardiac events. He is being discharged home. Please see the discharge orders. Medications Medications reviewed and reconciled for discharge. Allergy Allergies Coded Allergies Type Severity Reaction Last Updated Verified chlorpheniramine Allergy Intermediate 07/03/16 Yes oxymetazoline Allergy Intermediate 07/03/16 Yes pheniramine Allergy Intermediate 07/03/16 Yes phenylephrine Allergy Intermediate 07/03/16 Yes pseudoephedrine Allergy Intermediate 07/03/16 Yes Follow up in 3-5 days. DISPOSITION: Home Comments Discharge Management - 35 minutes. For other details please refer to discharge instructions EMMANUELLE VEE APRN Jan 24, 2017 10:07
== END 2017-01-23 17:00 | disposition home or self-care (01) | DRG 206 ==
LOC: ER 21:50 → 5 NORTH 23:10
PROVIDERS: ADMIT Internal Medicine; ATTEND Internal Medicine
DX: M94.0 Chondrocostal junction syndrome [Tietze] (principal); E46 Unspecified protein-calorie malnutrition; G81.94 Hemiplegia, unspecified affecting left nondominant side; E03.9 Hypothyroidism, unspecified; K21.9 Gastro-esophageal reflux disease without esophagitis; I27.2 Other secondary pulmonary hypertension; I44.7 Left bundle-branch block, unspecified; M19.90 Unspecified osteoarthritis, unspecified site; R55 Syncope and collapse; I48.0 Paroxysmal atrial fibrillation; I44.0 Atrioventricular block, first degree; I87.2 Venous insufficiency (chronic) (peripheral); J30.9 Allergic rhinitis, unspecified; I87.8 Other specified disorders of veins; D63.8 Anemia in other chronic diseases classified elsewhere; Z68.24 Body mass index [BMI] 24.0-24.9, adult; Z88.1 Allergy status to other antibiotic agents; Z88.8 Allergy status to other drugs, medicaments and biological substances; Z77.120 Contact with and (suspected) exposure to mold (toxic); Z79.899 Other long term (current) drug therapy; Z80.0 Family history of malignant neoplasm of digestive organs; Z87.891 Personal history of nicotine dependence
CPT/HCPCS: 36415; 71010; 78452; 80048; 80053; 80061; 84484; 85027; 93005; 93017; 93306; 94250; 94640; 96374; 96375; 96376; A9500; J2785; 99285-25

== ENCOUNTER 2017-08-16 19:49 | Emergency (ER) | payer OTHER ==
[~2017-08-16] VITALS: Ht 185.4 cm; Wt 87.1 kg
[~2017-08-16 19:49] MED LIST changes: +ASPI-252 PO; +ASPI-612 PO; -LEVO25TA2 PO; +LEVO25TA55 PO; +METO-239 PO
[2017-08-16] MEDS ORDERED: HYDROcodone/APAP 5/325MG 1 TAB TABLET PO ONE (20:30)
[2017-08-16] MEDS ORDERED: IBUP-1007 PO (21:35)
[2017-08-16] MEDS ORDERED: HYDR-971 PO (21:35)
--- NOTE | 2017-08-16 21:35 | PHYS DOC ---
Past Medical History Past Medical History: CVA, High Cholesterol, Hypertension, Hypothyroid, Stroke , Other Additional Past Medical Histor: bradycardia, stroke x6 Past Surgical History: Other Additional Past Surgical Histo: HERNIA REPAIR, ingrown toe nail, HEART MONITOR Alcohol Use: None Drug Use: None Adult General Chief Complaint Chief Complaint: MECHANICAL FALL HPI HPI Patient is a 77 year old gentleman who presents to the ER today secondary to pain to his left rib. Patient reports that he fell down approximately 4-5 hours ago and his daughters on top of him. Patient is currently complaining of pain to his left lower ribs. Patient reports she been and bleeding since. Patient reports he went to the [employer] himself baby aspirins went home and call the animal secondary to the pain. Patient denies any history of diabetes liver lung or kidney pals. Patient does have a history of hypertension. Patient does not smoke drink or do any drugs and is not allergic to any pain medicines. Patient has any fevers shakes chills nausea vomiting diarrhea chest pain or shortness of breath other than the pain to his left ribs. Patient denies any lower STEMI edema. Patient reports no pain to his hips and no other extremity tenderness. Review of systems: Constitutional: Denies fever or chills Eyes: Denies change in visual acuity, redness, or eye pain ] All other review systems are negative except as documented in the history of present illness portion. Physical exam: Constitutional: Well developed, well nourished, no acute distress, non-toxic appearance. [] HENT: Normocephalic, atraumatic, bilateral external ears normal, Eyes: conjunctiva normal, no discharge. [] Neck: Normal range of motion, no tenderness, supple, no stridor. [] Cardiovascular:Heart rate regular rhythm, Lungs & Thorax: Bilateral breath sounds clear to auscultation [] Abdomen: Bowel sounds normal, soft, no tenderness, no masses, no pulsatile masses. [] Skin: Warm, dry, no erythema, no rash. [] Back: No tenderness, no CVA tenderness. [] Extremities: No tenderness, no cyanosis, no clubbing, ROM intact, no edema. [] Neurologic: Alert and oriented X 3, normal motor function, normal sensory function, no focal deficits noted. [] Psychologic: Affect normal, judgement normal, mood normal. [] Patient's physical exam is significant for tenderness to palpation to his left lower ribs. Patient has no crepitance or bony deformities. All bones and hips were palpated range of motion was performed without any discomfort to the patient. Chest x-ray: Normal heart no infiltrates or effusions no pneumothorax no evidence of fracture. Interpreted by ER physician. While in the ER the patient did receive adequate pain medicines and will be discharged home with Bethany and ibuprofen help with his pain. Current Medications Current Medications Current Medications Medications (Trade) Dose Ordered Sig/Manny Start Time Stop Time Status Last Admin Dose Admin Acetaminophen/ Hydrocodone Bitart (Lortab 5/325) 1 tab 1X ONCE 08/16/17 20:30 08/16/17 20:31 DC 08/16/17 20:50 1 TAB Allergies Allergies Allergies Coded Allergies Type Severity Reaction Last Updated Verified chlorpheniramine Allergy Intermediate 07/03/16 Yes oxymetazoline Allergy Intermediate 07/03/16 Yes pheniramine Allergy Intermediate 07/03/16 Yes phenylephrine Allergy Intermediate 07/03/16 Yes pseudoephedrine Allergy Intermediate 07/03/16 Yes Current Patient Data Vital Signs Vital Signs Date Time Temp Pulse Resp B/P (MAP) Pulse Ox O2 Delivery O2 Flow Rate FiO2 08/16/17 21:28 72 16 119/68 (85) 94 Room Air 08/16/17 20:15 98.8 98.8 EKG EKG [] Radiology/Procedures Radiology/Procedures [] Course & Med Decision Making Course & Med Decision Making Pertinent Labs and Imaging studies reviewed. (See chart for details) [] Dragon Disclaimer Dragon Disclaimer This electronic medical record was generated, in whole or in part, using a voice recognition dictation system. Departure Departure Impression: Primary Impression: Chest pain Additional Impression: Contusion of rib on left side Disposition: HOME, SELF-CARE Condition: IMPROVED Referrals: ANUM CESPEDES MD (PCP) Patient Instructions: Chest Wall Pain, Rib Contusion Scripts Hydrocodone/Apap 5-325 (NORCO 5-325 TABLET) 1 Each Tablet 1 TAB PO QID Y for PAIN, #10 TAB Prov: KATE GARCIA MD 08/16/17 Ibuprofen (IBUPROFEN) 600 Mg Tablet 600 MG PO PRN Q6HRS Y for PAIN, #20 TAB Prov: KATE GARCIA MD 08/16/17 Problem Qualifiers KATE GARCIA MD Aug 16, 2017 21:35
[2017-08-16 22:00] VITALS: BP 125/83
--- NOTE | 2017-08-17 08:10 | RAD ---
PA and lateral chest radiographs 08/16/2017 Clinical history: Chest pain post trauma. PA and lateral digital radiographs of the chest were obtained. Comparison study is dated 01/21/2017. A implanted monitoring device is seen within the left anterior chest wall, unchanged. The cardiac silhouette is borderline enlarged. The thoracic aorta is tortuous. Atherosclerotic calcification of the thoracic aorta is seen. No acute pulmonary infiltrate is noted. No pneumothorax or pleural effusion is seen. Degenerative changes are seen involving the thoracic spine. The osseous structures are grossly intact. Impression: No acute abnormality is seen.
--- NOTE | 2017-08-17 13:00 | EKG ---
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
== END 2017-08-16 22:22 | disposition home or self-care (01) ==
LOC: ER 19:49
DX: S20.212A Contusion of left front wall of thorax, initial encounter (principal); E78.00 Pure hypercholesterolemia, unspecified; I10 Essential (primary) hypertension; E03.9 Hypothyroidism, unspecified; Z86.73 Personal history of transient ischemic attack (TIA), and cerebral infarction without residual deficits; Z88.8 Allergy status to other drugs, medicaments and biological substances; W19.XXXA Unspecified fall, initial encounter; Y93.89 Activity, other specified; Y99.8 Other external cause status; Y92.89 Other specified places as the place of occurrence of the external cause
CPT/HCPCS: 71020; 93005; 99284-25

== ENCOUNTER 2017-11-12 09:55 | Emergency (ER) | payer OTHER ==
[~2017-11-12] VITALS: Ht 182.9 cm; Wt 87.1 kg
[~2017-11-12 09:55] MED LIST changes: +HYDR-971 PO; +IBUP-1007 PO
[2017-11-12 10:11] VITALS: BP 128/81
--- NOTE | 2017-11-12 10:55 | RAD ---
Indication: Neck pain for one month. Axial imaging through the cervical spine was performed without contrast. Sagittal and coronal reformations were also performed. There is mild right convexity curvature to the cervical spine. There is normal lordotic curvature. Minimal retrolisthesis of C5 on C6 is identified. There is multilevel degenerative disc disease with variable disc space narrowing and marginal spurring, greatest C5-6 level. No fractures are identified. The prevertebral tissues are normal. The odontoid is intact. Impression: Cervical spondylosis and listhesis, as described. No acute bony abnormality is detected. PQRS Compliance Statement: One or more of the following individualized dose reduction techniques were utilized for this examination: 1. Automated exposure control 2. Adjustment of the mA and/or kV according to patient size 3. Use of iterative reconstruction technique
[2017-11-12] MEDS ORDERED: TRAM1TAB4 PO (11:07)
--- NOTE | 2017-11-12 11:07 | PHYS DOC ---
Past Medical History Past Medical History: CVA, High Cholesterol, Hypertension, Hypothyroid, Stroke , Other Additional Past Medical Histor: bradycardia, stroke x6 Past Surgical History: Other Additional Past Surgical Histo: HERNIA REPAIR, ingrown toe nail, HEART MONITOR , DEFIB Alcohol Use: None Drug Use: None Adult General Chief Complaint Chief Complaint: Neck Pain [facility] HPI Patient is a pleasant 77-year-old male with a history of prior CVA, hypertension and an implantable AICD who presents with neck pain has been bothering him intermittently for last month. He'll contact his primary care doctor and he was asking to come in for an evaluation of his primary care doctor 's office when his nurses aide brought him to the emergency department for evaluation of his neck pain. This pain is primarily on the right side he awoke with it about a month ago it has been intermittent with no new neurologic deficits, no fevers, no chills, no cough, no URI symptoms. No neck stiffness. The pain is worse with range of motion direct pressure over the right side. He denies any trauma or falls. He denies any change in vision, change in speech, or new weakness associated with this. His right neck pain has not been treated with any medications. Incidentally he has no change in vision but he's been told recently that he is legally blind. Patient still can see it is blurred at distance he has no new complaints changes today. Review of Systems Review of Systems Constitutional: Denies fever or chills [] Eyes: Denies change in visual acuity although his vision is chronically blurred , redness, or eye pain [] HENT: Denies nasal congestion or sore throat [] Respiratory: Denies cough or shortness of breath [] Cardiovascular: No additional information not addressed in HPI [] GI: Denies abdominal pain, nausea, vomiting, bloody stools or diarrhea [] : Denies dysuria or hematuria [] Musculoskeletal: Planes of chronic neck pain for last month with no new changes no joint pain or joint swelling Integument: Denies rash or skin lesions [] Neurologic: Denies headache, focal weakness or sensory changes [] All other systems were reviewed and found to be within normal limits, except as documented in this note. Allergies Allergies Allergies Coded Allergies Type Severity Reaction Last Updated Verified chlorpheniramine Allergy Intermediate 07/03/16 Yes oxymetazoline Allergy Intermediate 07/03/16 Yes pheniramine Allergy Intermediate 07/03/16 Yes phenylephrine Allergy Intermediate 07/03/16 Yes pseudoephedrine Allergy Intermediate 07/03/16 Yes Physical Exam Physical Exam Other vital signs recorded on the chart within normal limits Constitutional: Well developed, well nourished, no acute distress, non-toxic appearance. [] HENT: Normocephalic, atraumatic, bilateral external ears normal, oropharynx dry mucous membranes, no oral exudates, nose normal. [] Eyes: PERRLA, EOMI, conjunctiva normal, no discharge. [] Neck: Patient has tenderness to palpation over the erector spinae muscles on the mid back, the trapezius muscles specifically the belly that inserts on the neck. He also has tenderness along the rhomboid major and minor that is reproducible on exam. There are no physical signs of trauma, no soft tissue swelling no rash Cardiovascular:Heart rate regular rhythm, no murmur [] Lungs & Thorax: Bilateral breath sounds clear to auscultation [] Skin: Warm, dry, no erythema, no rash. [] Back: Patient has tenderness to palpation over the rhomboid major and minor that she is on exam there is no external kay no midline tenderness palpation of the T-spine or L-spine. Extremities: No tenderness, no cyanosis, no clubbing, ROM intact, no edema. [] Neurologic: Alert and oriented X 3, he has no new focal deficits contracture and weakness in the left upper extremity and severe left lower extremity weakness which is not new. he has normal sensation to light touch and appropriate hose maker over the upper and lower extremities. He also has sensation is normal across the face with normal cranial nerve expression. Psychologic: Affect normal, judgement normal, mood normal. [] Current Patient Data Vital Signs Vital Signs Date Time Temp Pulse Resp B/P (MAP) Pulse Ox O2 Delivery O2 Flow Rate FiO2 11/12/17 10:11 98.0 72 16 128/81 (97) 98 Room Air 98.0 EKG EKG [] Radiology/Procedures Radiology/Procedures [] [facility] [address] [place] [address] IMAGING REPORT Signed PATIENT: DIMITRI PIZANO ACCOUNT: [id number] : 1940 LOCATION: ER AGE: 77 SEX: M EXAM STATUS: PRE ER ORD. PHYSICIAN: JESSIKA VAZQUEZ MD REASON: neck pain for one month PROCEDURE: CT CERVICAL SPINE WO CONTRAST Indication: Neck pain for one month. Axial imaging through the cervical spine was performed without contrast. Sagittal and coronal reformations were also performed. There is mild right convexity curvature to the cervical spine. There is normal lordotic curvature. Minimal retrolisthesis of C5 on C6 is identified. There is multilevel degenerative disc disease with variable disc space narrowing and marginal spurring, greatest C5-6 level. No fractures are identified. The prevertebral tissues are normal. The odontoid is intact. Impression: Cervical spondylosis and listhesis, as described. No acute bony abnormality is detected. PQRS Compliance Statement: One or more of the following individualized dose reduction techniques were utilized for this examination: 1. Automated exposure control 2. Adjustment of the mA and/or kV according to patient size 3. Use of iterative reconstruction technique DICTATED and SIGNED BY: ANGEL SIMMS MD DATE: 11/12/17 1049 CC: JESSIKA VAZQUEZ MD; ANUM CESPEDES MD ~ Course & Med Decision Making Course & Med Decision Making Pertinent Labs and Imaging studies reviewed. (See chart for details) []he presents with chronic neck pain that is intermittent. There is no sign of cervical compression with examination. He has a negative Spurling's test for what he can tolerate. Patient has a normal neuro exam with no changes to his prior weakness of his left upper limb. Patient is no evidence of anterior neck swelling, lymphadenopathy, no evidence of Brudzinski's or Kernig sign, patient is no evidence of trauma. CT scan of the neck demonstrates no acute finding he' s got some chronic spondylolisthesis and spurring as well as some degenerative joint changes. Dragon Disclaimer Dragon Disclaimer This electronic medical record was generated, in whole or in part, using a voice recognition dictation system. Departure Departure Impression: Primary Impression: Neck pain Additional Impression: Neck pain, musculoskeletal Disposition: 01 HOME, SELF-CARE Condition: IMPROVED Referrals: ANUM CESPEDES MD (PCP) Patient Instructions: Torticollis, Acute Additional Instructions: discharge: I've spoken with the patient and/or caregivers. I've explained the patient's condition, diagnosis and treatment plan based on information available to me at this time. I've answered the patient's and/or caregivers questions and addressed any concerns. The patient and/or caregivers have a good understanding the patient's diagnosis, condition and treatment plan as can be expected at this point. Vital signs have been stabilized. The patient's condition is stable for discharge from the emergency department. The patient will pursue further outpatient evaluation with her primary care provider or other designated consulting physician as outlined in the discharge instructions. Patient and/or caregivers are agreeable to this plan of care and follow-up instructions have been explained in detail. The patient and/or caregivers have received these instructions in written format and expressed understanding of these discharge instructions. The patient and her caregivers are aware that if any significant change in condition or worsening of symptoms should prompt him to immediately return to this of the closest emergency department. If an emergent department is not readily available I would encourage him to call 911. Scripts Tramadol Hcl/Acetaminophen (TRAMADOL-ACETAMINOPHN 37.5-325) 1 Each Tablet 1 TAB PO Q4-6HRS, #10 TAB Prov: JESSIKA VAZQUEZ MD 11/12/17 Problem Qualifiers JESSIKA VAZQUEZ MD Nov 12, 2017 11:07
[2017-11-16] MEDS ORDERED: PANT40TA5 PO (12:05)
== END 2017-11-12 11:21 | disposition home or self-care (01) ==
LOC: ER 09:55
DX: M54.2 Cervicalgia (principal); R53.1 Weakness; E78.00 Pure hypercholesterolemia, unspecified; E03.9 Hypothyroidism, unspecified; I10 Essential (primary) hypertension; G89.29 Other chronic pain; H54.8 Legal blindness, as defined in USA; Z86.73 Personal history of transient ischemic attack (TIA), and cerebral infarction without residual deficits; Z88.8 Allergy status to other drugs, medicaments and biological substances
CPT/HCPCS: 72125; 99284-25

== ENCOUNTER 2018-03-28 08:30 | Outpatient (CLI) | payer OTHER ==
[2018-03-28] MEDS: fentaNYL PF VIAL 100 MCG/2 ML VIAL IV (09:30)
[2018-03-28] MEDS: LIDOCAINE 2% 20 ML VIAL. IJ (09:30)
== END 2018-03-28 11:15 | disposition home or self-care (01) ==
LOC: NM 08:30
DX: R94.31 Abnormal electrocardiogram [ECG] [EKG] (principal)
CPT/HCPCS: J1644; J3010

== ENCOUNTER → 2018-03-28 | Outpatient (CLI) | payer OTHER ==
[~2018-03-28] MED LIST changes: -ACET325T16 PO; -AMOX1TAB11 PO; -AMOX1TAB61 PO; -ASPI-252 PO; -ASPI-612 PO; -AZIT250T PO; -Antacid PO; -CEPH-264 PO; -DOXY100T PO; -HYDR-971 PO; -IBUP-1007 PO; -LEVO25TA4 PO; -LEVO25TA55 PO; -LEVO50TA5 PO; -LEVO75TA PO; +LIDOCAINE 2% 20 ML VIAL.; -Levothyroxine PO; -METO-239 PO; -MUPI15CR TP; -PROVENTIL HFA6.7 GM IH; +fentaNYL PF VIAL 100 MCG/2 ML VIAL
== END ==
LOC: CCL 08:30
DX: Z45.09 Encounter for adjustment and management of other cardiac device (principal); E78.00 Pure hypercholesterolemia, unspecified; I10 Essential (primary) hypertension; K21.9 Gastro-esophageal reflux disease without esophagitis; E03.9 Hypothyroidism, unspecified; Z98.890 Other specified postprocedural states; Z84.89 Family history of other specified conditions
CPT/HCPCS: 33284

== ENCOUNTER → 2018-04-01 | Outpatient (CLI) | payer OTHER ==
[2018-04-01] MEDS: REGADENOSON 0.4 MG/5 ML DISP.SYRIN. IV (09:45)
== END | disposition home or self-care (01) ==
LOC: NM 08:50
DX: I44.7 Left bundle-branch block, unspecified (principal); R94.31 Abnormal electrocardiogram [ECG] [EKG]; Z79.01 Long term (current) use of anticoagulants
CPT/HCPCS: 78452; 93017; 96374; 96375; 96376; A9500; J2785

== ENCOUNTER 2018-07-24 21:37 | Emergency (ER) | payer OTHER ==
[~2018-07-24] VITALS: Ht 182.9 cm; Wt 81.6 kg
[2018-07-24 21:37] VITALS: BP 145/76
[~2018-07-24 21:37] MED LIST changes: +ACET325T16 PO; +AMOX1TAB11 PO; +AMOX1TAB61 PO; +ASPI-252 PO; +ASPI-612 PO; +AZIT250T PO; +Antacid PO; +CEPH-264 PO; +DOXY100T PO; +HYDR-971 PO; +IBUP-1007 PO; +LEVO25TA4 PO; +LEVO25TA55 PO; +LEVO50TA5 PO; +LEVO75TA PO; -LIDOCAINE 2% 20 ML VIAL.; +Levothyroxine PO; +METO-239 PO; +MUPI15CR TP; +PANT40TA5 PO; +PROVENTIL HFA6.7 GM IH; +TRAM1TAB4 PO; -fentaNYL PF VIAL 100 MCG/2 ML VIAL
--- NOTE | 2018-07-24 22:03 | PHYS DOC ---
Past Medical History Past Medical History: CVA, GERD, High Cholesterol, Hypertension, Hypothyroid, Stroke, Other Additional Past Medical Histor: bradycardia, stroke x6 Past Surgical History: Other Additional Past Surgical Histo: HERNIA REPAIR, ingrown toe nail, INSERTABLE CARDIAC LOOP RECORDER Alcohol Use: None Drug Use: None Adult General Chief Complaint Chief Complaint: MECHANICAL FALL HPI HPI Patient is a 78-year-old male who presents to the emergency department for evaluation. He lives with his sons, as well as a female roommate.EMS was called out because of frequent falls. According to EMS, the patient has a history of 3- 4 falls per week, but has been having 2-3 falls per day for the past week. He does have some skin tears on his arms bilaterally, and some right elbow pain, but denies any other painful areas or injuries. He states he does not use a walker, and does not think wants to use one, because he has things to hold onto in his house. He has had a stroke in the past, and does have weakness of his left arm with contractures of his left hand. He denies any headache or neck pain or back pain at this time. He is uncertain of his last tetanus. There are no alleviating or exacerbating factors to his symptoms. Review of Systems Review of Systems Constitutional: Denies fever or chills [] Eyes: Denies change in visual acuity, redness, or eye pain [] HENT: Denies nasal congestion or sore throat [] Respiratory: Denies cough or shortness of breath [] Cardiovascular: The patient denies any shortness of breath, chest pain, palpitations, or orthopnea [] GI: Denies abdominal pain, nausea, vomiting, bloody stools or diarrhea [] : Denies dysuria or hematuria [] Musculoskeletal: Denies back pain or joint pain [] Integument: Denies rash or skin lesions, other than skin tears [] Neurologic: Denies headache, new focal weakness or sensory changes [] Endocrine: Denies polyuria or polydipsia [] All other systems were reviewed and found to be within normal limits, except as documented in this note. Current Medications Current Medications Current Medications Medications (Trade) Dose Ordered Sig/Manny Start Time Stop Time Status Last Admin Dose Admin Diphtheria/ Tetanus/Acell Pertussis (Boostrix) 0.5 ml ONCE ONCE 07/24/18 22:30 07/24/18 22:31 DC 07/24/18 22:30 0.5 ML Allergies Allergies Allergies Coded Allergies Type Severity Reaction Last Updated Verified chlorpheniramine Allergy Intermediate 07/03/16 Yes oxymetazoline Allergy Intermediate 07/03/16 Yes pheniramine Allergy Intermediate 07/03/16 Yes phenylephrine Allergy Intermediate 07/03/16 Yes pseudoephedrine Allergy Intermediate 07/03/16 Yes Physical Exam Physical Exam PHYSICAL EXAM: CONSTITUTIONAL: Well developed, well nourished HEAD: normocephalic, atraumatic EENT: PERRL, EOMI. Conjunctivae normal color, sclerae non-icteric; moist mucous membranes. NECK: Supple, non-tender; no meningismus.There is full, painless range of motion of the cervical spine, without any focal bony midline tenderness to palpation. LUNGS: Lungs CTA, breathing even and unlabored. Normal air movement. HEART: Regular rate and rhythm, no murmur CHEST: No deformity; non-tender ABDOMEN: The abdomen is soft, and non-tender, no masses or bruits. EXTREM: Normal ROM; no deformity, no calf tenderness. Normal pulses palpable in all extremities. There is no pedal edema. There is mild tenderness to palpation of the right elbow. There are superficial skin tears on the forearms bilaterally. There are changes of chronic venous stasis in the lower extremities bilaterally. SKIN: No rash; no diaphoresis NEURO: Alert; normal speech and cognition; CN's grossly intact; strength grossly intact without focal deficit. BACK: No CVA TTP. Current Patient Data Vital Signs Vital Signs Date Time Temp Pulse Resp B/P (MAP) Pulse Ox O2 Delivery O2 Flow Rate FiO2 07/24/18 21:37 99.3 88 15 145/76 (99) 97 Room Air 99.3 Lab Values Laboratory Tests Test 07/24/18 22:25 White Blood Count 6.2 x10^3/uL (4.0-11.0) Red Blood Count 4.02 x10^6/uL (4.30-5.70) L Hemoglobin 13.4 g/dL (13.0-17.5) Hematocrit 37.4 % (39.0-53.0) L Mean Corpuscular Volume 93 fL (79-100) Mean Corpuscular Hemoglobin 33 pg (25-35) Mean Corpuscular Hemoglobin Concent 36 g/dL (31-37) Red Cell Distribution Width 14.2 % (11.5-14.5) Platelet Count 181 x10^3/uL (140-400) Neutrophils (%) (Auto) 45 % (31-73) Lymphocytes (%) (Auto) 38 % (24-48) Monocytes (%) (Auto) 11 % (0-9) H Eosinophils (%) (Auto) 5 % (0-3) H Basophils (%) (Auto) 1 % (0-3) Neutrophils # (Auto) 2.8 x10^3uL (1.8-7.7) Lymphocytes # (Auto) 2.3 x10^3/uL (1.0-4.8) Monocytes # (Auto) 0.7 x10^3/uL (0.0-1.1) Eosinophils # (Auto) 0.3 x10^3/uL (0.0-0.7) Basophils # (Auto) 0.1 x10^3/uL (0.0-0.2) Sodium Level 135 mmol/L (136-145) L Potassium Level 3.4 mmol/L (3.5-5.1) L Chloride Level 104 mmol/L (98-107) Carbon Dioxide Level 28 mmol/L (21-32) Anion Gap 3 (6-14) L Blood Urea Nitrogen 13 mg/dL (8-26) Creatinine 1.1 mg/dL (0.7-1.3) Estimated GFR (Cockcroft-Gault) 64.7 BUN/Creatinine Ratio 12 (6-20) Glucose Level 127 mg/dL (70-99) H Calcium Level 9.0 mg/dL (8.5-10.1) Total Bilirubin 0.5 mg/dL (0.2-1.0) Aspartate Amino Transferase (AST) 19 U/L (15-37) Alanine Aminotransferase (ALT) 22 U/L (16-63) Alkaline Phosphatase 75 U/L (46-116) Creatine Kinase 149 U/L (39-308) Creatine Kinase MB (Mass) 1.7 ng/mL (0.0-3.6) Creatine Kinase MB Relative Index 1.1 % (0-4) Troponin I Quantitative < 0.017 ng/mL (0.000-0.055) PJ-Suw-F-Type Natriuretic Peptide 321 pg/mL (0-449) Total Protein 7.6 g/dL (6.4-8.2) Albumin 3.5 g/dL (3.4-5.0) Albumin/Globulin Ratio 0.9 (1.0-1.7) L Laboratory Tests 07/24/18 22:25 Laboratory Tests 07/24/18 22:25 EKG EKG [Normal sinus rhythm at a rate of 78 beats for minute, normal axis, probable left bundle-branch branch block, possibly incomplete. There are no acute ischemic ST/T changes. Poor anterior R-wave progression is present. The EKG is unchanged compared to the patient's EKG from May.] Radiology/Procedures Radiology/Procedures [PROCEDURE: CT HEAD WO CONTRAST PQRS Compliance statement: One or more of the following individualized dose reduction techniques were utilized for this examination: 1. Automated exposure control. 2. Adjustment of the mA and/or kV according to patient size. 3. Use of iterative reconstruction technique. Indication:pt fell; eval for injury TECHNIQUE: CT head without IV contrast COMPARISON:07/02/2016 FINDINGS: No pathologic extra-axial or intra-axial fluid collection. Mild diffuse cerebral atrophy with ex vacuo dilation of the ventricles. Stable encephalomalacia in the right frontal lobe and right occipital lobe from prior infarct. The basal cisterns are within normal limits. No acute intracranial bleed. No new focal loss of tobar-white differentiation. No suspicious calvarial lesion. Visualized paranasal sinuses and mastoid air cells are clear. Visualized orbits within normal limits. IMPRESSION: 1. No acute intracranial process. 2. Stable old infarcts in the right frontal and right occipital lobe. If concern for acute ischemic stroke is high, please consider MRI brain.] PROCEDURE: PORTABLE CHEST 1V PROCEDURE: PORTABLE CHEST 1V CLINICAL INDICATION: pain, fall injury COMPARISON: 05/30/2018 FINDINGS: No pneumothorax identified. Cardiac and mediastinal contours unremarkable. No pulmonary consolidation or acute airspace disease. No acute osseous abnormalities identified. IMPRESSION: No pulmonary consolidation or acute airspace disease. PROCEDURE: ELBOW RIGHT 3V Indication: Pain, fall. TECHNIQUE: 3 views of the left elbow COMPARISON: None FINDINGS: Well-corticated 7 mm bony fragment seen adjacent to the lateral condyle likely old avulsion fracture. Clinically correlate with focal tenderness in this region. No acute fracture or dislocation. No elbow joint effusion. No soft tissue abnormality. IMPRESSION: As above. Course & Med Decision Making Course & Med Decision Making Pertinent Labs and Imaging studies reviewed. (See chart for details) [12:40 AM: The patient's condition remained stable. He is ambulatory with the use of a walker with a stable gait. I discussed importance of using a walker regularly, the need for close PCP follow-up, and return precautions in detail. The patient does not want to stay in the hospital and I do not think he needs to at this point.] The patient will be given a handwritten prescription for a walker. Dragon Disclaimer Dragon Disclaimer This electronic medical record was generated, in whole or in part, using a voice recognition dictation system. Departure Departure Impression: Primary Impression: Skin tear Additional Impression: Accidental fall Disposition: 01 HOME, SELF-CARE Condition: STABLE Referrals: ANUM CESPEDES MD (PCP) Patient Instructions: Fall Prevention and Home Safety, Walker Use Problem Qualifiers VANESSA MARTINEZ MD Jul 24, 2018 22:03
[2018-07-24] MEDS ORDERED: DIPHTH,PERTUSS(ACELL),TET TOX 0.5 ML DISP.SYRIN. VAX IM ONE (22:30)
[2018-07-24 22:44] LABS: BASO # 0.1 x10^3/uL (0.0-0.2); BASO % 1 % (0-3); EOS # 0.3 x10^3/uL (0.0-0.7); EOS % 5 % (0-3); HEMATOCRIT 37.4 % (39.0-53.0); HEMOGLOBIN 13.4 g/dL (13.0-17.5); LYMPH # 2.3 x10^3/uL (1.0-4.8); LYMPH % 38 % (24-48); MEAN CORPUSCULAR HEMOGLOBIN 33 pg (25-35); MEAN CORPUSCULAR HGB CONC 36 g/dL (31-37); MEAN CORPUSCULAR VOLUME 93 fL (79-100); MONO # 0.7 x10^3/uL (0.0-1.1); MONO % 11 % (0-9); NEUT # 2.8 x10^3uL (1.8-7.7); NEUT % 45 % (31-73); PLATELET COUNT 181 x10^3/uL (140-400); RED BLOOD COUNT 4.02 x10^6/uL (4.30-5.70); RED CELL DISTRIBUTION WIDTH 14.2 % (11.5-14.5); WHITE BLOOD COUNT 6.2 x10^3/uL (4.0-11.0)
[2018-07-24 22:53] LABS: CREATININE 1.1 mg/dL (0.7-1.3); GFR 64.7; POTASSIUM 3.4 mmol/L (3.5-5.1)
[2018-07-24 22:59] LABS: ALBUMIN 3.5 g/dL (3.4-5.0); ALBUMIN/GLOBULIN RATIO 0.9 (1.0-1.7); TOTAL BILIRUBIN 0.5 mg/dL (0.2-1.0); TOTAL PROTEIN 7.6 g/dL (6.4-8.2)
--- NOTE | 2018-07-24 22:59 | RAD ---
PQRS Compliance statement: One or more of the following individualized dose reduction techniques were utilized for this examination: 1. Automated exposure control. 2. Adjustment of the mA and/or kV according to patient size. 3. Use of iterative reconstruction technique. Indication:pt fell; eval for injury TECHNIQUE: CT head without IV contrast COMPARISON:07/02/2016 FINDINGS: No pathologic extra-axial or intra-axial fluid collection. Mild diffuse cerebral atrophy with ex vacuo dilation of the ventricles. Stable encephalomalacia in the right frontal lobe and right occipital lobe from prior infarct. The basal cisterns are within normal limits. No acute intracranial bleed. No new focal loss of tobar-white differentiation. No suspicious calvarial lesion. Visualized paranasal sinuses and mastoid air cells are clear. Visualized orbits within normal limits. IMPRESSION: 1. No acute intracranial process. 2. Stable old infarcts in the right frontal and right occipital lobe. If concern for acute ischemic stroke is high, please consider MRI brain. Electronically signed by: Ta Light DO (07/24/2018 10:56 PM) [facility]
--- NOTE | 2018-07-24 23:07 | RAD ---
PROCEDURE: PORTABLE CHEST 1V CLINICAL INDICATION: pain, fall injury COMPARISON: 05/30/2018 FINDINGS: No pneumothorax identified. Cardiac and mediastinal contours unremarkable. No pulmonary consolidation or acute airspace disease. No acute osseous abnormalities identified. IMPRESSION: No pulmonary consolidation or acute airspace disease. Electronically signed by: Ta Light DO (07/24/2018 11:04 PM) [facility]
--- NOTE | 2018-07-24 23:09 | RAD ---
Indication: Pain, fall. TECHNIQUE: 3 views of the left elbow COMPARISON: None FINDINGS: Well-corticated 7 mm bony fragment seen adjacent to the lateral condyle likely old avulsion fracture. Clinically correlate with focal tenderness in this region. No acute fracture or dislocation. No elbow joint effusion. No soft tissue abnormality. IMPRESSION: As above. Electronically signed by: Ta Light DO (07/24/2018 11:06 PM) [facility]
--- NOTE | 2018-07-25 06:46 | EKG ---
[facility] [address] [place] [address] Test Date: 2018-07-24 Test Time: 22:16:59 Pat Name: DIMITRI PIZANO Department: Room: Gender: M Assembly Person: : 1940 Requested By: VANESSA MARTINEZ Order Number: [id number] Reading MD: Ulises George MD Measurements Intervals Cochrane Rate: 78 P: 65 AL: 212 QRS: 3 QRSD: 122 T: 111 QT: 402 QTc: 462 Interpretive Statements SINUS RHYTHM QRS(T) CONTOUR ABNORMALITY CONSISTENT WITH ANTEROSEPTAL INFARCT PROBABLY OLD IVCD Electronically Signed On 07-29-2018 11:47:05 CDT by Ulises George MD
== END 2018-07-25 01:26 | disposition home or self-care (01) ==
LOC: ER 21:37
DX: S41.112A Laceration without foreign body of left upper arm, initial encounter (principal); S41.111A Laceration without foreign body of right upper arm, initial encounter; S51.011A Laceration without foreign body of right elbow, initial encounter; K21.9 Gastro-esophageal reflux disease without esophagitis; E78.00 Pure hypercholesterolemia, unspecified; I10 Essential (primary) hypertension; E03.9 Hypothyroidism, unspecified; I87.8 Other specified disorders of veins; Z86.73 Personal history of transient ischemic attack (TIA), and cerebral infarction without residual deficits; Z88.8 Allergy status to other drugs, medicaments and biological substances; W18.39XA Other fall on same level, initial encounter; Y93.89 Activity, other specified; Y92.89 Other specified places as the place of occurrence of the external cause; Y99.8 Other external cause status
CPT/HCPCS: 36415; 70450; 71045; 73080; 80053; 82553; 83880; 84484; 85025; 90471; 90715; 93005; 99285-25

== ENCOUNTER 2018-08-20 14:01 | Emergency (ER) | payer OTHER ==
[~2018-08-20] VITALS: Ht 188 cm; Wt 89.8 kg
[2018-08-20] MEDS ORDERED: DIPHTH,PERTUSS(ACELL),TET TOX 0.5 ML DISP.SYRIN. VAX IM ONE (14:30)
--- NOTE | 2018-08-20 14:56 | RAD ---
EXAM: CHEST 1 VIEW History: Fall, lacerations COMPARISON: 07/24/2018 TECHNIQUE: Single portable radiograph of the chest FINDINGS: The cardiac silhouette is unremarkable. The lungs are clear bilaterally. The costophrenic sulci are clear and well demarcated. IMPRESSION: No radiographic evidence of an acute cardiopulmonary process. Electronically signed by: Boris Perkins MD (08/20/2018 2:53 PM) [id number]
--- NOTE | 2018-08-20 14:58 | RAD ---
Examination: 4 views of the left knee HISTORY: History of fall, laceration COMPARISON: None available FINDINGS: There is moderate joint space loss identified in the medial, lateral, patellofemoral compartments. No significant knee joint effusion is identified. There is no acute fracture or dislocation identified. IMPRESSION: 1. No acute osseous findings. 2. Moderate tricompartmental degenerative changes. Electronically signed by: Boris Perkins MD (08/20/2018 2:55 PM) [id number]
[2018-08-20 15:23] LABS: BILIRUBIN,URINE NEGATIVE (NEG); CLARITY,URINE CLEAR; COLOR,URINE YELLOW; NITRITE,URINE NEGATIVE (NEG); PH,URINE 5.5; PROTEIN,URINE NEGATIVE (NEG-TRACE); UROBILINOGEN,URINE 0.2 mg/dL (0.2 mg/dL)
[2018-08-20 15:27] LABS: BARBITURATES NEG (NEG); CANNABINOIDS NEG (NEG); COCAINE NEG (NEG); METHADONE NEG (NEG); OPIATES NEG (NEG); PHENCYCLIDINE NEG (NEG)
[2018-08-20 15:49] LABS: BACTERIA,URINE 0 /HPF (0-FEW); RBC,URINE 0 /HPF (0-2); SQUAMOUS EPITHELIAL CELL,UR MOD /LPF
[2018-08-20 16:08] LABS: AMPHETAMINE/METHAMPHETAMINE NEG (NEG); BENZODIAZEPINES NEG (NEG)
--- NOTE | 2018-08-20 16:08 | RAD ---
Examination: CT head, cervical spine, maxillofacial bones without contrast Exposure: One or more of the following individualized dose reduction techniques were utilized for this examination: 1. Automated exposure control 2. Adjustment of the mA and/or kV according to patient size 3. Use of iterative reconstruction technique CT HEAD INDICATION: LEFT EYEBROW FACIAL LACERATION POST FALL COMPARISON: None Available. TECHNIQUE: 5 mm contiguous axial images were obtained from the skull base to the vertex in both bone and soft tissue algorithm. FINDINGS: Hypodensity in the right frontal, parietal and occipital lobe likely old infarct similar to prior exam. No evidence of acute intracranial hemorrhage. No extra-axial fluid collections. No mass effect or midline shift. Ventricular size is appropriate. Basal cisterns are patent. No fractures identified.Davidson-white differentiation is preserved. Paranasal sinuses and mastoid air cells are clear. IMPRESSION: 1. No acute intracranial findings. CT CERVICAL SPINE INDICATION: LEFT EYEBROW FACIAL LACERATION POST FALL COMPARISON: 11/12/2017 Technique: 2.5 mm contiguous axial images were obtained from the skull base through the cervicothoracic junction in both bone and soft tissue algorithm. Additional sagittal and coronal reconstructions were also performed. FINDINGS: Vertebral body height and alignment are maintained. Cervical lordosis is preserved. The lateral masses of C1 are aligned upon C2. No fractures identified. The bony canal is patent throughout. Moderate intervertebral disc height loss identified at C3-C4, C4-C5, C5-C6 vertebral levels. There is minimal retrolisthesis of C5 on C6. The paraspinous soft tissues are unremarkable. Visualized intracranial contents are unremarkable. Lung apices are clear. IMPRESSION: 1. No acute fracture the cervical spine. Correlate clinically. 2. Moderate degenerative changes cervical spine. EXAM: CT FACIAL BONES WITHOUT CONTRAST History: LEFT EYEBROW FACIAL LACERATION POST FALL COMPARISON: None TECHNIQUE: Noncontrast images of the facial bones are performed. Coronal and sagittal reformatted images are also presented for interpretation. FINDINGS: There is mild soft tissue prominence identified anterior to the left orbital globe likely secondary to soft tissue injury in the preseptal region. The bilateral orbital globes appear intact. Retro-orbital fat is maintained. Small calcification identified in the left orbital scleral region similar to prior exam. The bilateral orbital lunsford appear intact. The visualized frontal sinuses, sphenoid sinuses, maxillary sinuses are unopacified. Mild mucosal thickening identified in the bilateral ethmoidal sinuses. Old fracture of the right nasal bone similar to prior exam. IMPRESSION: 1. Probable old fracture of the right nasal bone. 2. Mild soft tissue prominence identified anterior to the left orbital globe likely secondary to soft tissue injury in the preseptal region. Electronically signed by: Boris Perkins MD (08/20/2018 4:05 PM) [id number]
[2018-08-20] MEDS ORDERED: LIDOCAINE 1% PF 2 ML VIAL. INJ ONE (16:45)
[2018-08-20] MEDS ORDERED: cefTRIAXone IM 1 GM VIAL IM ONE (16:45)
[2018-08-20 16:46] VITALS: BP 143/66
[2018-08-20] MEDS ORDERED: CEPH500T PO (17:18)
--- NOTE | 2018-08-20 17:19 | PHYS DOC ---
Past Medical History Past Medical History: Schizophrenia Additional Past Medical Histor: bradycardia, stroke x6 Past Surgical History: Other Additional Past Surgical Histo: "OPEN HEART", hernia Alcohol Use: None Drug Use: None Adult General Chief Complaint Chief Complaint: MECHANICAL FALL HPI HPI Patient is a 78 year old male with history of schizophrenia who presents today to be evaluated status post falling. Patient states this morning around 4 AM he was awake, he states he went outside to pick Cable that was on the ground, he states he tripped on the same cable in the driveway and fell down hitting his head on a tree branch as well as the ground. Denies any loss of consciousness. He is complaining of posterior head pain, left knee pain and has a laceration on the left eyebrow. Patient denies any loss of consciousness. He states was able to get up with the help of his brother who he lives with and went back to bed. He states he slept and went to the social security office this morning, he states the social security office called EMS for him because he had a laceration on the left eye brow. Patient states he has previous history of CVA with left upper extremity weakness. Patient denies being on blood thinners. Review of Systems Review of Systems Constitutional: Denies fever or chills [] Eyes: Denies change in visual acuity, redness, or eye pain [] HENT: Denies nasal congestion or sore throat [] Respiratory: Denies cough or shortness of breath [] Cardiovascular: No additional information not addressed in HPI [] GI: Denies abdominal pain, nausea, vomiting, bloody stools or diarrhea [] : Denies dysuria or hematuria [] Musculoskeletal: Reports left knee pain Integument: Reports laceration to the left eyebrow Neurologic: Reports headache, denies focal weakness or sensory changes [] All other systems were reviewed and found to be within normal limits, except as documented in this note. Current Medications Current Medications Current Medications Medications (Trade) Dose Ordered Sig/Manny Start Time Stop Time Status Last Admin Dose Admin Ceftriaxone Sodium (Rocephin Im) 1 gm 1X ONCE 08/20/18 16:45 08/20/18 16:49 DC 08/20/18 17:00 1 GM Diphtheria/ Tetanus/Acell Pertussis (Boostrix) 0.5 ml ONCE ONCE 08/20/18 14:30 08/20/18 14:32 DC 08/20/18 15:48 0.5 ML Lidocaine HCl (Xylocaine-Mpf 1% 2ml Vial) 2 ml 1X ONCE 08/20/18 16:45 08/20/18 16:49 DC 08/20/18 17:01 2 ML Allergies Allergies Allergies Coded Allergies Type Severity Reaction Last Updated Verified chlorpheniramine Allergy Intermediate 07/03/16 Yes oxymetazoline Allergy Intermediate 07/03/16 Yes pheniramine Allergy Intermediate 07/03/16 Yes phenylephrine Allergy Intermediate 07/03/16 Yes pseudoephedrine Allergy Intermediate 07/03/16 Yes Physical Exam Physical Exam Constitutional: Patient appears that he and unkept. Well developed, well nourished, no acute distress, non-toxic appearance. [] HENT: Normocephalic, atraumatic, bilateral external ears normal, oropharynx moist, no oral exudates, nose normal. [] Eyes: PERRLA, EOMI, conjunctiva normal, no discharge. [] Neck: Normal range of motion, no tenderness, supple, no stridor. [] Cardiovascular:Heart rate regular rhythm, no murmur [] Lungs & Thorax: Bilateral breath sounds clear to auscultation [] Abdomen: Bowel sounds normal, soft, no tenderness, no masses, no pulsatile masses. [] Skin: Warm, dry, left upper eyebrow with a superficial laceration approximately 2 cm on the lateral aspect of the eyebrow. No bleeding. Back: No tenderness, no CVA tenderness. [] Extremities: Left knee with bruising. Slight tenderness on palpation over the left knee. Full range of motion to the left knee. Bilateral barbour with chronic erythema from venous insufficiency. Patient socks are dirty and he appears unkept. Neurologic: Alert and oriented X 3, normal motor function, normal sensory function, no focal deficits noted. Cranial nerves II through XII intact Psychologic: Affect normal, judgement normal, mood normal. [] Current Patient Data Vital Signs Vital Signs Date Time Temp Pulse Resp B/P (MAP) Pulse Ox O2 Delivery O2 Flow Rate FiO2 08/20/18 16:16 60 19 95 08/20/18 14:10 97.7 138/71 (93) Room Air 97.7 Lab Values Laboratory Tests Test 08/20/18 15:15 Urine Collection Type Unknown Urine Color Yellow Urine Clarity Clear Urine pH 5.5 Urine Specific Mobile 1.010 Urine Protein Negative mg/dL (NEG-TRACE) Urine Glucose (UA) Negative mg/dL (NEG) Urine Ketones (Stick) Negative mg/dL (NEG) Urine Blood Trace (NEG) Urine Nitrite Negative (NEG) Urine Bilirubin Negative (NEG) Urine Urobilinogen Dipstick 0.2 mg/dL (0.2 mg/dL) Urine Leukocyte Esterase Moderate (NEG) Urine RBC 0 /HPF (0-2) Urine WBC 11-20 /HPF (0-4) Urine Squamous Epithelial Cells Mod /LPF Urine Bacteria 0 /HPF (0-FEW) Urine Opiates Screen Neg (NEG) Urine Methadone Screen Neg (NEG) Urine Barbiturates Neg (NEG) Urine Phencyclidine Screen Neg (NEG) Urine Amphetamine/Methamphetamine Neg (NEG) Urine Benzodiazepines Screen Neg (NEG) Urine Cocaine Screen Neg (NEG) Urine Cannabinoids Screen Neg (NEG) Urine Ethyl Alcohol Neg (NEG) EKG EKG [] Radiology/Procedures Radiology/Procedures []PROCEDURE: CHEST AP ONLY EXAM: CHEST 1 VIEW History: Fall, lacerations COMPARISON: 07/24/2018 TECHNIQUE: Single portable radiograph of the chest FINDINGS: The cardiac silhouette is unremarkable. The lungs are clear bilaterally. The costophrenic sulci are clear and well demarcated. IMPRESSION: No radiographic evidence of an acute cardiopulmonary process. Electronically signed by: Boris Dubon MD (08/20/2018 2:53 PM) [id number] DICTATED and SIGNED BY: BORIS DUBON MD DATE: 08/20/18 1452 PROCEDURE: CT HEAD AND CERVICAL SPINE WO Examination: CT head, cervical spine, maxillofacial bones without contrast Exposure: One or more of the following individualized dose reduction techniques were utilized for this examination: 1. Automated exposure control 2. Adjustment of the mA and/or kV according to patient size 3. Use of iterative reconstruction technique CT HEAD INDICATION: LEFT EYEBROW FACIAL LACERATION POST FALL COMPARISON: None Available. TECHNIQUE: 5 mm contiguous axial images were obtained from the skull base to the vertex in both bone and soft tissue algorithm. FINDINGS: Hypodensity in the right frontal, parietal and occipital lobe likely old infarct similar to prior exam. No evidence of acute intracranial hemorrhage. No extra-axial fluid collections. No mass effect or midline shift. Ventricular size is appropriate. Basal cisterns are patent. No fractures identified.Davidson-white differentiation is preserved. Paranasal sinuses and mastoid air cells are clear. IMPRESSION: 1. No acute intracranial findings. CT CERVICAL SPINE INDICATION: LEFT EYEBROW FACIAL LACERATION POST FALL COMPARISON: 11/12/2017 Technique: 2.5 mm contiguous axial images were obtained from the skull base through the cervicothoracic junction in both bone and soft tissue algorithm. Additional sagittal and coronal reconstructions were also performed. FINDINGS: Vertebral body height and alignment are maintained. Cervical lordosis is preserved. The lateral masses of C1 are aligned upon C2. No fractures identified. The bony canal is patent throughout. Moderate intervertebral disc height loss identified at C3-C4, C4-C5, C5-C6 vertebral levels. There is minimal retrolisthesis of C5 on C6. The paraspinous soft tissues are unremarkable. Visualized intracranial contents are unremarkable. Lung apices are clear. IMPRESSION: 1. No acute fracture the cervical spine. Correlate clinically. 2. Moderate degenerative changes cervical spine. EXAM: CT FACIAL BONES WITHOUT CONTRAST History: LEFT EYEBROW FACIAL LACERATION POST FALL COMPARISON: None TECHNIQUE: Noncontrast images of the facial bones are performed. Coronal and sagittal reformatted images are also presented for interpretation. FINDINGS: There is mild soft tissue prominence identified anterior to the left orbital globe likely secondary to soft tissue injury in the preseptal region. The bilateral orbital globes appear intact. Retro-orbital fat is maintained. Small calcification identified in the left orbital scleral region similar to prior exam. The bilateral orbital lunsford appear intact. The visualized frontal sinuses, sphenoid sinuses, maxillary sinuses are unopacified. Mild mucosal thickening identified in the bilateral ethmoidal sinuses. Old fracture of the right nasal bone similar to prior exam. IMPRESSION: 1. Probable old fracture of the right nasal bone. 2. Mild soft tissue prominence identified anterior to the left orbital globe likely secondary to soft tissue injury in the preseptal region. Electronically signed by: Boris Dubon MD (08/20/2018 4:05 PM) [id number] DICTATED and SIGNED BY: BORIS DUBON MD DATE: 08/20/18 1554 Course & Med Decision Making Course & Med Decision Making Pertinent Labs and Imaging studies reviewed. (See chart for details) This is a 78-year-old male patient who presents to the ED to be evaluated after falling this morning at 4 AM. Consciousness. Has a superficial laceration to the left eyebrow. Tetanus updated. CT of the head, cervical spine were negative for any acute findings. CT of maxillary facial was noted for an old nasal bone fracture. Chest x-rays negative for any acute findings. Urine noted for UTI. Patient was given 1 g of Rocephin in the ED. Will be discharged with Rocephin. Instructed to follow-up with his own PCP as well as a plastic surgeon for the old nasal bone fracture. Tylenol recommended for pain. Dragon Disclaimer Dragon Disclaimer This electronic medical record was generated, in whole or in part, using a voice recognition dictation system. Departure Departure Impression: Primary Impression: Fall from standing Additional Impressions: Contusion of left knee Eyebrow laceration Nasal bone fracture Closed head injury Urinary tract infection Disposition: 01 HOME, SELF-CARE Condition: STABLE Referrals: ANUM CESPEDES MD (PCP) Follow-up in the course of this week or next week Patient Instructions: Contusion, [id number], Fall Prevention and Home Safety , Head Injury, Adult, [id number], Laceration Care, Adult, Urinary Tract Infection Additional Instructions: You were evaluated in the emergency room after falling. Your CT of the head and cervical spine were negative for any acute findings. Your x-ray of the left knee was negative for any acute findings. Your CT of the face was noted for nasal bone fracture that appears old. You can follow-up with [facility] plastic surgeon in one to 2 weeks for this [phone], also follow-up with your primary care doctor as soon as you can. Complete your oral antibiotics. Scripts Cephalexin (CEPHALEXIN) 500 Mg Tablet 1 TAB PO BID, #14 TAB Prov: CORI HODGES ROLL TENDER 08/20/18 Problem Qualifiers Primary Impression: Fall from standing Encounter type: initial encounter Qualified Codes: W19.XXXA - Unspecified fall, initial encounter Additional Impressions: Contusion of left knee Encounter type: initial encounter Qualified Codes: S80.02XA - Contusion of left knee, initial encounter Eyebrow laceration Encounter type: initial encounter Laterality: left Qualified Codes: S01.112A - Laceration without foreign body of left eyelid and periocular area, initial encounter Nasal bone fracture Encounter type: initial encounter Fracture type: closed Qualified Codes: S02.2XXA - Fracture of nasal bones, initial encounter for closed fracture Closed head injury Encounter type: initial encounter Qualified Codes: S09.90XA - Unspecified injury of head, initial encounter Urinary tract infection Urinary tract infection type: site unspecified Hematuria presence: without hematuria Qualified Codes: N39.0 - Urinary tract infection, site not specified CORI OHDGES APRN Aug 20, 2018 17:19
== END 2018-08-20 18:00 | disposition home or self-care (01) ==
LOC: ER 14:01
DX: S02.2XXA Fracture of nasal bones, initial encounter for closed fracture (principal); S01.112A Laceration without foreign body of left eyelid and periocular area, initial encounter; S80.02XA Contusion of left knee, initial encounter; S09.90XA Unspecified injury of head, initial encounter; N39.0 Urinary tract infection, site not specified; F20.9 Schizophrenia, unspecified; Z88.8 Allergy status to other drugs, medicaments and biological substances; W01.198A Fall on same level from slipping, tripping and stumbling with subsequent striking against other object, initial encounter; Y93.89 Activity, other specified; Y92.89 Other specified places as the place of occurrence of the external cause; Y99.8 Other external cause status
CPT/HCPCS: 70450; 70486; 71045; 72125; 73564; 80307; 81001; 90471; 90715; 96372; 99285; J0696; G0479

== ENCOUNTER 2020-02-11 21:10 | Emergency (ER) | payer MEDICARE, OTHER ==
[~2020-02-11] VITALS: Ht 188 cm; Wt 90.0 kg
[~2020-02-11 21:10] MED LIST changes: +CEPH500T PO; +HYDR-3164 PO; -HYDR-971 PO; -PANT40TA5 PO; +PANT40TA77 PO
--- NOTE | 2020-02-11 21:27 | PHYS DOC ---
Past Medical History Past Medical History: Schizophrenia Additional Past Medical Histor: bradycardia, stroke x6 Past Surgical History: Other Additional Past Surgical Histo: "OPEN HEART", hernia Smoking Status: Never Smoker Alcohol Use: None Drug Use: None Adult General Chief Complaint Chief Complaint: CHEST PAIN HPI HPI 79-year-old male presents with a chief complaint of chest pain. Patient arrived by EMS. Patient states he was sitting on the side of his bed attempting to get his wallet out of his pocket when he had sudden onset right-sided chest pain. Patient lasted for 5 minutes and was described the pain as 8 out of 10. He states it did not radiate. He denied any associated nausea vomiting or diaphoresis. Prior to arrival patient's chest pain had resolved. EMS reports patient was without chest pain prior to transport. At the time of my exam-- patient with no complaints. Patient ekg no acute ischemic changes--- no acute change when compared to previous EKG. Treated with ASA on arrival. Review of Systems Review of Systems Constitutional: Denies fever or chills [] Eyes: Denies change in visual acuity, redness, or eye pain [] HENT: Denies nasal congestion or sore throat [] Respiratory: Denies cough or shortness of breath [] Cardiovascular: No additional information not addressed in HPI [positive chest pain] GI: Denies abdominal pain, nausea, vomiting, bloody stools or diarrhea [] : Denies dysuria or hematuria [] Musculoskeletal: Denies back pain or joint pain [] Integument: Denies rash or skin lesions [] Neurologic: Denies headache, focal weakness or sensory changes [] Endocrine: Denies polyuria or polydipsia [] All other systems were reviewed and found to be within normal limits, except as documented in this note. Current Medications Current Medications Current Medications Medications (Trade) Dose Ordered Sig/Manny Start Time Stop Time Status Last Admin Dose Admin Aspirin (Children'S Aspirin) 324 mg 1X ONCE 02/11/20 21:30 02/11/20 21:31 DC 02/11/20 21:34 324 MG Allergies Allergies Allergies Coded Allergies Type Severity Reaction Last Updated Verified chlorpheniramine Allergy Intermediate 07/03/16 Yes oxymetazoline Allergy Intermediate 07/03/16 Yes pheniramine Allergy Intermediate 07/03/16 Yes phenylephrine Allergy Intermediate 07/03/16 Yes pseudoephedrine Allergy Intermediate 07/03/16 Yes Physical Exam Physical Exam Constitutional: Well developed, well nourished, no acute distress, non-toxic appearance. [] HENT: Normocephalic, atraumatic, bilateral external ears normal, oropharynx moist, no oral exudates, nose normal. [] Eyes: PERRLA, EOMI, conjunctiva normal, no discharge. [] Neck: Normal range of motion, no tenderness, supple, no stridor. [] Cardiovascular:Heart rate regular rhythm, no murmur [] Lungs & Thorax: Bilateral breath sounds clear to auscultation [] Abdomen: Bowel sounds normal, soft, no tenderness, no masses, no pulsatile masses. [] Skin: Warm, dry, no erythema, no rash. [] Back: No tenderness, no CVA tenderness. [] Extremities: No tenderness, no cyanosis, no clubbing, ROM intact, no edema. [] Neurologic: Alert and oriented X 3, normal motor function, normal sensory function, no focal deficits noted. [] Psychologic: Affect normal, judgement normal, mood normal. [] Current Patient Data Vital Signs Vital Signs Date Time Temp Pulse Resp B/P (MAP) Pulse Ox O2 Delivery O2 Flow Rate FiO2 02/11/20 21:13 98.7 87 18 135/78 (97) 96 Room Air 98.7 Lab Values Laboratory Tests Test 02/11/20 21:23 White Blood Count 7.9 x10^3/uL (4.0-11.0) Red Blood Count 4.48 x10^6/uL (4.30-5.70) Hemoglobin 14.8 g/dL (13.0-17.5) Hematocrit 42.3 % (39.0-53.0) Mean Corpuscular Volume 94 fL (79-100) Mean Corpuscular Hemoglobin 33 pg (25-35) Mean Corpuscular Hemoglobin Concent 35 g/dL (31-37) Red Cell Distribution Width 14.6 % (11.5-14.5) H Platelet Count 238 x10^3/uL (140-400) Neutrophils (%) (Auto) 43 % (31-73) Lymphocytes (%) (Auto) 35 % (24-48) Monocytes (%) (Auto) 15 % (0-9) H Eosinophils (%) (Auto) 6 % (0-3) H Basophils (%) (Auto) 1 % (0-3) Neutrophils # (Auto) 3.4 x10^3/uL (1.8-7.7) Lymphocytes # (Auto) 2.8 x10^3/uL (1.0-4.8) Monocytes # (Auto) 1.2 x10^3/uL (0.0-1.1) H Eosinophils # (Auto) 0.4 x10^3/uL (0.0-0.7) Basophils # (Auto) 0.1 x10^3/uL (0.0-0.2) Sodium Level 141 mmol/L (136-145) Potassium Level 3.7 mmol/L (3.5-5.1) Chloride Level 103 mmol/L (98-107) Carbon Dioxide Level 25 mmol/L (21-32) Anion Gap 13 (6-14) Blood Urea Nitrogen 16 mg/dL (8-26) Creatinine 1.3 mg/dL (0.7-1.3) Estimated GFR (Cockcroft-Gault) 53.3 BUN/Creatinine Ratio 12 (6-20) Glucose Level 109 mg/dL (70-99) H Calcium Level 9.0 mg/dL (8.5-10.1) Total Bilirubin 0.7 mg/dL (0.2-1.0) Aspartate Amino Transferase (AST) 24 U/L (15-37) Alanine Aminotransferase (ALT) 29 U/L (16-63) Alkaline Phosphatase 77 U/L (46-116) Troponin I Quantitative < 0.017 ng/mL (0.000-0.055) Total Protein 7.7 g/dL (6.4-8.2) Albumin 3.7 g/dL (3.4-5.0) Albumin/Globulin Ratio 0.9 (1.0-1.7) L Laboratory Tests 02/11/20 21:23 Laboratory Tests 02/11/20 21:23 EKG EKG [] Interpretation Time: 4 hrs. Heart rate [address] elevation no ST depression no acute [place] no acute change when compared to previous EKG performed on 07/24/2018 Radiology/Procedures Radiology/Procedures [] Impressions: FINDINGS: The cardiomediastinal silhouette and pulmonary vessels are within normal limits. The lung and pleural spaces are clear. IMPRESSION: No acute cardiopulmonary process. Course & Med Decision Making Course & Med Decision Making Pertinent Labs and Imaging studies reviewed. (See chart for details) 3 points Low Score (0-3 points) Risk of MACE of 0.9-1.7%. Scores 0-3: 0.9-1.7% risk of adverse cardiac event. In the HEART Score study, these patients were discharged (0.99% in the retrospective study, 1.7% in the prospective study) Heart Score 3 Dragon Disclaimer Dragon Disclaimer This electronic medical record was generated, in whole or in part, using a voice recognition dictation system. Departure Departure Impression: Primary Impression: Chest discomfort Additional Impression: Chest pain Disposition: 01 HOME, SELF-CARE Condition: STABLE Referrals: ANUM CESPEDES MD (PCP) Patient Instructions: Chest Pain (Nonspecific) Problem Qualifiers YOSELYN OLIVA DO Feb 11, 2020 21:27
[2020-02-11 21:30] LABS: BASO # 0.1 x10^3/uL (0.0-0.2); BASO % 1 % (0-3); EOS # 0.4 x10^3/uL (0.0-0.7); EOS % 6 % (0-3); HEMATOCRIT 42.3 % (39.0-53.0); HEMOGLOBIN 14.8 g/dL (13.0-17.5); LYMPH # 2.8 x10^3/uL (1.0-4.8); LYMPH % 35 % (24-48); MEAN CORPUSCULAR HEMOGLOBIN 33 pg (25-35); MEAN CORPUSCULAR HGB CONC 35 g/dL (31-37); MEAN CORPUSCULAR VOLUME 94 fL (79-100); MONO # 1.2 x10^3/uL (0.0-1.1); MONO % 15 % (0-9); NEUT # 3.4 x10^3/uL (1.8-7.7); NEUT % 43 % (31-73); PLATELET COUNT 238 x10^3/uL (140-400); RED BLOOD COUNT 4.48 x10^6/uL (4.30-5.70); RED CELL DISTRIBUTION WIDTH 14.6 % (11.5-14.5); WHITE BLOOD COUNT 7.9 x10^3/uL (4.0-11.0)
[2020-02-11] MEDS ORDERED: ASPIRIN CHEWABLE 81 MG TABLET. PO ONE (21:30)
--- NOTE | 2020-02-11 21:54 | RAD ---
Exam: Chest one view INDICATION: Chest pain TECHNIQUE: Frontal view of the chest Comparisons: 08/20/2018 FINDINGS: The cardiomediastinal silhouette and pulmonary vessels are within normal limits. The lung and pleural spaces are clear. IMPRESSION: No acute cardiopulmonary process. Electronically signed by: Johnathan Potts MD (02/11/2020 9:51 PM) [id number]
[2020-02-11 21:58] LABS: CREATININE 1.3 mg/dL (0.7-1.3); GFR 53.3; POTASSIUM 3.7 mmol/L (3.5-5.1)
[2020-02-11 22:04] LABS: ALBUMIN 3.7 g/dL (3.4-5.0); ALBUMIN/GLOBULIN RATIO 0.9 (1.0-1.7); TOTAL BILIRUBIN 0.7 mg/dL (0.2-1.0); TOTAL PROTEIN 7.7 g/dL (6.4-8.2)
[2020-02-11 23:00] VITALS: BP 120/67
--- NOTE | 2020-02-12 08:25 | EKG ---
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
== END 2020-02-11 23:15 | disposition home or self-care (01) ==
LOC: ER 21:10
DX: R07.89 Other chest pain (principal); F20.9 Schizophrenia, unspecified; Z98.890 Other specified postprocedural states; Z79.82 Long term (current) use of aspirin; Z88.8 Allergy status to other drugs, medicaments and biological substances; Z88.5 Allergy status to narcotic agent
CPT/HCPCS: 36415; 71045; 80053; 84484; 85025; 93005; 99285

== ENCOUNTER 2020-07-12 06:58 | Inpatient (IN) | payer MEDICARE, OTHER ==
[2020-07-12] VITALS (9 sets, daily range): BP systolic 117–146; BP diastolic 54–74
[~2020-07-12] VITALS: Ht 182.9 cm; Wt 86.0 kg
[~2020-07-12 06:58] MED LIST changes: +ACET-2061 PO; -ACET325T16 PO; -ASPI-612 PO; +ASPI-886 PO; +CLOP75TA PO; +LEVO100T5 PO; -LEVO75TA PO; +LEVO75TA90 PO; +LISI-338 PO; +OMEP20CA16 PO
[2020-07-12] MEDS ORDERED: IV NORMAL SALINE 1000ML BAG 1,000 ML IV ONE (07:30)
[2020-07-12] MEDS ORDERED: ONDANSETRON PF 4 MG/2 ML VIAL. IV ONE (07:30)
[2020-07-12 07:52] LABS: BASO # 0.1 x10^3/uL (0.0-0.2); BASO % 0 % (0-3); EOS % 0 % (0-3); HEMATOCRIT 40.6 % (39.0-53.0); HEMOGLOBIN 13.8 g/dL (13.0-17.5); LYMPH # 1.3 x10^3/uL (1.0-4.8); LYMPH % 11 % (24-48); MEAN CORPUSCULAR HEMOGLOBIN 32 pg (25-35); MEAN CORPUSCULAR HGB CONC 34 g/dL (31-37); MEAN CORPUSCULAR VOLUME 93 fL (79-100); MONO # 1.2 x10^3/uL (0.0-1.1); MONO % 10 % (0-9); NEUT # 9.6 x10^3/uL (1.8-7.7); NEUT % 79 % (31-73); PLATELET COUNT 172 x10^3/uL (140-400); RED BLOOD COUNT 4.39 x10^6/uL (4.30-5.70); RED CELL DISTRIBUTION WIDTH 14.3 % (11.5-14.5); WHITE BLOOD COUNT 12.2 x10^3/uL (4.0-11.0)
[2020-07-12 08:00] LABS: CALCIUM 8.5 mg/dL (8.5-10.1); CREATININE 0.9 mg/dL (0.7-1.3); GFR 81.2; POTASSIUM 3.5 mmol/L (3.5-5.1)
[2020-07-12 08:06] LABS: ALBUMIN 3.3 g/dL (3.4-5.0); ALBUMIN/GLOBULIN RATIO 0.8 (1.0-1.7); TOTAL BILIRUBIN 0.7 mg/dL (0.2-1.0); TOTAL PROTEIN 7.5 g/dL (6.4-8.2)
--- NOTE | 2020-07-12 08:20 | EKG ---
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
--- NOTE | 2020-07-12 09:01 | RAD ---
PQRS Compliance Statement: One or more of the following individualized dose reduction techniques were utilized for this examination: 1. Automated exposure control 2. Adjustment of the mA and/or kV according to patient size 3. Use of iterative reconstruction technique CT ABDOMEN PELVIS WO CONTRAST Clinical Indication: Reason: abdominal pain / Spl. Instructions: / History: Comparison: None. Technique: Helical CT imaging of the abdomen and pelvis is performed without IV or oral contrast. Findings: Evaluation of solid organs and bowel is limited without oral and IV contrast, decreasing sensitivity for detection of pathology. There is mild bilateral dependent atelectasis or scarring in the lungs. The cardiac size is normal. There is moderate inflammation surrounding the gallbladder. There is gallbladder wall thickening. No cholelithiasis is seen by CT. No air in the gallbladder wall is seen. Calcified granulomas in the liver and the spleen. Pancreas, adrenal glands, and abdominal aorta caliber are normal. There is no renal calculus or hydronephrosis. The stomach is unremarkable. There is no dilated small bowel. The appendix is normal, partially contained in a small right inguinal hernia. No colon wall thickening is identified. The distal descending colon is contained in a large left inguinal hernia. There is no evidence of obstruction. There is no abdominal adenopathy or free fluid. The urinary bladder is normal. Prostate mildly enlarged. There is mild pelvic free fluid. There is diffuse demineralization. There is fracture at the superior endplate of the L1 vertebral body, appears subacute. Correlate to any point tenderness. Vacuum disc phenomenon at several levels of the thoracolumbar spine noted. There is mild left convexity thoracolumbar scoliosis centered at L1. IMPRESSION: 1. There is gallbladder wall thickening and moderate surrounding inflammation suggesting acute cholecystitis. 2. Mild pelvic free fluid, abnormal. 3. There is a large left inguinal hernia containing distal descending colon. There is no obstruction. 4. Prostate mildly enlarged. 5. Subacute appearing compression fracture superior endplate of L1 vertebral body. Electronically signed by: Cristo Flores MD (07/12/2020 8:58 AM) [id number]
--- NOTE | 2020-07-12 09:10 | PHYS DOC ---
Past Medical History Past Medical History: Schizophrenia Additional Past Medical Histor: bradycardia, stroke x6 Past Surgical History: No Surgical History, Other Additional Past Surgical Histo: "OPEN HEART", hernia Smoking Status: Former Smoker Alcohol Use: None Drug Use: None General Adult EDM: Chief Complaint: NAUSEA/VOMITING/DIARRHA HPI: HPI: Patient is an 80-year-old male who was just recently released from penitentiary[facility]rehab facility who presents with upper abdominal discomfort. He states it is much worse after he eats. He has had what amounts to intractable nausea and vomiting over the last 24 hours. He is really not been able to eat much during that time. He denies any fever chills or sweats. He denies melena or hematemesis. He states he has never had trouble with his gallbladder in the past. When asked exactly where his pain is he points to the middle of his abdomen. [] Review of Systems: Review of Systems: Constitutional: Denies fever or chills. [] Eyes: Denies change in visual acuity. [] HENT: Denies nasal congestion or sore throat. [] Respiratory: Denies cough or shortness of breath. [] Cardiovascular: Denies chest pain or edema. [] GI: Per HPI [] : Denies dysuria. [] Musculoskeletal: Denies back pain or joint pain. [] Integument: Denies rash. [] Neurologic: Denies headache, focal weakness or sensory changes. [] Endocrine: Denies polyuria or polydipsia. [] Lymphatic: Denies swollen glands. [] Psychiatric: Denies depression or anxiety. [] Heart Score: Risk Factors: Risk Factors: DM, Current or recent (<one month) smoker, HTN, HLP, family histo ry of CAD, obesity. Risk Scores: Score 0 - 3: 2.5% MACE over next 6 weeks - Discharge Home Score 4 - 6: 20.3% MACE over next 6 weeks - Admit for Clinical Observation Score 7 - 10: 72.7% MACE over next 6 weeks - Early Invasive Strategies Current Medications: Current Medications Medications (Trade) Dose Ordered Sig/Manny Start Time Stop Time Status Last Admin Dose Admin Ondansetron HCl (Zofran) 4 mg 1X ONCE 07/12/20 07:30 07/12/20 07:31 DC 07/12/20 08:08 4 MG Sodium Chloride 1,000 ml @ 1,000 mls/hr 1X ONCE 07/12/20 07:30 07/12/20 08:29 DC 07/12/20 08:08 1,000 MLS/HR Allergies: Allergies: Allergies Coded Allergies Type Severity Reaction Last Updated Verified chlorpheniramine Allergy Intermediate 07/03/16 Yes oxymetazoline Allergy Intermediate 07/03/16 Yes pheniramine Allergy Intermediate 07/03/16 Yes phenylephrine Allergy Intermediate 07/03/16 Yes pseudoephedrine Allergy Intermediate 07/03/16 Yes Physical Exam: PE: Constitutional: Well developed, well nourished, mild to moderate distress, non- toxic appearance. [] HENT: Normocephalic, atraumatic, bilateral external ears normal, oropharynx moist, no oral exudates, nose normal. [] Eyes: PERRLA, EOMI, conjunctiva normal, no discharge. [] Neck: Normal range of motion, no tenderness, supple, no stridor. [] Cardiovascular:Heart rate regular rhythm, no murmur [] Lungs & Thorax: Bilateral breath sounds clear to auscultation [] Abdomen: Bowel sounds normal, soft, tender to palp right upper quadrant negative Agrawal sign generalized abdominal pain to a lesser extent than the right upper quadrant with no rebound or guarding. [] Skin: Warm, dry, no erythema, no rash. [] Back: No tenderness, no CVA tenderness. [] Extremities: No tenderness, no cyanosis, no clubbing, ROM intact, no edema. [] Neurologic: Alert and oriented X 3, normal motor function, normal sensory function, no focal deficits noted. [] Psychologic: Anxious [] Current Patient Data: Labs: Laboratory Tests Test 07/12/20 07:43 White Blood Count 12.2 x10^3/uL (4.0-11.0) H Red Blood Count 4.39 x10^6/uL (4.30-5.70) Hemoglobin 13.8 g/dL (13.0-17.5) Hematocrit 40.6 % (39.0-53.0) Mean Corpuscular Volume 93 fL (79-100) Mean Corpuscular Hemoglobin 32 pg (25-35) Mean Corpuscular Hemoglobin Concent 34 g/dL (31-37) Red Cell Distribution Width 14.3 % (11.5-14.5) Platelet Count 172 x10^3/uL (140-400) Neutrophils (%) (Auto) 79 % (31-73) H Lymphocytes (%) (Auto) 11 % (24-48) L Monocytes (%) (Auto) 10 % (0-9) H Eosinophils (%) (Auto) 0 % (0-3) Basophils (%) (Auto) 0 % (0-3) Neutrophils # (Auto) 9.6 x10^3/uL (1.8-7.7) H Lymphocytes # (Auto) 1.3 x10^3/uL (1.0-4.8) Monocytes # (Auto) 1.2 x10^3/uL (0.0-1.1) H Eosinophils # (Auto) 0.0 x10^3/uL (0.0-0.7) Basophils # (Auto) 0.1 x10^3/uL (0.0-0.2) Sodium Level 139 mmol/L (136-145) Potassium Level 3.5 mmol/L (3.5-5.1) Chloride Level 106 mmol/L (98-107) Carbon Dioxide Level 23 mmol/L (21-32) Anion Gap 10 (6-14) Blood Urea Nitrogen 10 mg/dL (8-26) Creatinine 0.9 mg/dL (0.7-1.3) Estimated GFR (Cockcroft-Gault) 81.2 BUN/Creatinine Ratio 11 (6-20) Glucose Level 143 mg/dL (70-99) H Calcium Level 8.5 mg/dL (8.5-10.1) Total Bilirubin 0.7 mg/dL (0.2-1.0) Aspartate Amino Transferase (AST) 20 U/L (15-37) Alanine Aminotransferase (ALT) 15 U/L (16-63) L Alkaline Phosphatase 74 U/L (46-116) Troponin I Quantitative < 0.017 ng/mL (0.000-0.055) Total Protein 7.5 g/dL (6.4-8.2) Albumin 3.3 g/dL (3.4-5.0) L Albumin/Globulin Ratio 0.8 (1.0-1.7) L Lipase 125 U/L (73-393) Laboratory Tests 8/18/20 07:43 Laboratory Tests 07/12/20 07:43 Vital Signs: Vital Signs Date Time Temp Pulse Resp B/P (MAP) Pulse Ox O2 Delivery O2 Flow Rate FiO2 07/12/20 07:12 98.9 59 14 149/109 (122) 97 Room Air 98.9 EKG: EKG: [] Radiology/Procedures: Radiology/Procedures: [] Impression: CT ABDOMEN PELVIS WO CONTRAST Clinical Indication: Reason: abdominal pain / Spl. Instructions: / History: Comparison: None. Technique: Helical CT imaging of the abdomen and pelvis is performed without IV or oral contrast. Findings: Evaluation of solid organs and bowel is limited without oral and IV contrast, decreasing sensitivity for detection of pathology. There is mild bilateral dependent atelectasis or scarring in the lungs. The cardiac size is normal. There is moderate inflammation surrounding the gallbladder. There is gallbladder wall thickening. No cholelithiasis is seen by CT. No air in the gallbladder wall is seen. Calcified granulomas in the liver and the spleen. Pancreas, adrenal glands, and abdominal aorta caliber are normal. There is no renal calculus or hydronephrosis. The stomach is unremarkable. There is no dilated small bowel. The appendix is normal, partially contained in a small right inguinal hernia. No colon wall thickening is identified. The distal descending colon is contained in a large left inguinal hernia. There is no evidence of obstruction. There is no abdominal adenopathy or free fluid. The urinary bladder is normal. Prostate mildly enlarged. There is mild pelvic free fluid. There is diffuse demineralization. There is fracture at the superior endplate of the L1 vertebral body, appears subacute. Correlate to any point tenderness. Vacuum disc phenomenon at several levels of the thoracolumbar spine noted. There is mild left convexity thoracolumbar scoliosis centered at L1. IMPRESSION: 1. There is gallbladder wall thickening and moderate surrounding inflammation suggesting acute cholecystitis. 2. Mild pelvic free fluid, abnormal. 3. There is a large left inguinal hernia containing distal descending colon. There is no obstruction. 4. Prostate mildly enlarged. 5. Subacute appearing compression fracture superior endplate of L1 vertebral body. Course & Med Decision Making: Course & Med Decision Making Pertinent Labs and Imaging studies reviewed. (See chart for details) [ED course: Evaluation reveals an 80-year-old male with upper abdominal discomfort. His CT scan showed evidence of acute cholecystitis. I spoke with his primary care physician Dr. Light who agreed to accept the patient for admission to the hospital. We also notify general surgery who will evaluate him in the hospital.] Dragon Disclaimer: Dragon Disclaimer: This electronic medical record was generated, in whole or in part, using a voice recognition dictation system. Departure Departure Impression: Primary Impression: Acute cholecystitis Disposition: ADMITTED INPATIENT Admitting Physician: Kuldeep MEJIA Pratip Condition: STABLE Referrals: ANUM LIGHT MD (PCP) Justicifation of Admission Dx: Justifications for Admission: Justification of Admission Dx: Yes Comments: Acute cholecystitis JERMAINE NGUYEN DO Jul 12, 2020 09:10
[2020-07-12] MEDS ORDERED: ONDANSETRON PF 4 MG/2 ML VIAL. IV PRN (09:15)
[2020-07-12] MEDS ORDERED: IV NORMAL SALINE 1000ML BAG 1,000 ML IV SCH (09:15)
[2020-07-12] MEDS ORDERED: fentaNYL PF VIAL 100 MCG/2 ML VIAL IV PRN ×3 (09:15→16:15)
[2020-07-12] MEDS ORDERED: POTASSIUM CHLORIDE 20 MEQ in IV DEXTROSE 5 %-0.45 % NACL 1,000 ML IV SCH (10:15)
[2020-07-12] MEDS ORDERED: METOPROLOL TARTRATE 5 MG/5 ML VIAL. IVP PRN (10:15)
[2020-07-12 10:16] LABS: BILIRUBIN,URINE NEGATIVE (NEG); CLARITY,URINE CLEAR; COLOR,URINE AMBER; NITRITE,URINE NEGATIVE (NEG); PH,URINE 5.5 (<5.0-8.0); PROTEIN,URINE NEGATIVE (NEG-TRACE)
[2020-07-12 10:22] LABS: BACTERIA,URINE FEW /HPF (0-FEW); RBC,URINE OCC /HPF (0-2)
--- NOTE | 2020-07-12 10:26 | PDOC ---
Provider Note Provider Note H&P dictated #[id number] Justicifation of Admission Dx: Justifications for Admission: Justification of Admission Dx: Comment: (Acute cholecystitis) Comments: Acute cholecystitis ANUM CESPEDES MD Jul 12, 2020 10:26
[2020-07-12] MEDS ORDERED: PIPERACILLIN/TAZOBACTAM 3.375 GM in IV NORMAL SALINE 50ML 50 ML IV ONE (10:30)
--- NOTE | 2020-07-12 11:06 | HP ---
ADMIT DATE: 07/12/2020 HISTORY OF PRESENT ILLNESS: This 80-year-old male who has been admitted to this institution several times in the past and who was recently discharged from a long term to go home, started having abdominal pain last night after he ate. The patient is a very poor historian, but he denies any vomiting, but admits to nausea. He denies any fever, chills, dysuria. He points to the middle of the abdomen about his pain. He denies any diarrhea. He admits to constipation. Denies any chest pains, dyspnea, dizziness or palpitations. He is again a poor historian. In the Emergency Room, his WBC count was 12.2, hemoglobin 13.8, polys 79. Sodium 139, potassium 3.5, BUN 10, creatinine 0.9, glucose 143, AST 20, ALT 15, albumin 3.3, total protein 7.5, lipase 125. His CT scan of abdomen and pelvis showed gallbladder wall thickening and moderate surrounding inflammation suggestive of acute cholecystitis, mild pelvic free fluid, large left inguinal hernia containing distal descending colon. There is no obstruction. Mildly enlarged prostate, subacute compression fracture of the L1 vertebral body. because of the acute cholecystitis and abdominal pain, the patient is admitted for further evaluation and management. REVIEW OF SYSTEMS: Systems review as noted in the history of present illness. The patient is again a very poor historian. PAST MEDICAL HISTORY: The patient was last discharged from this hospital on 02/16/2020. He has a history of hypertension, chest pain, gastroesophageal reflux disease, hiatal hernia, mild tricuspid regurgitation, mitral regurgitation, pulmonary hypertension and previous ejection fraction of 60% to 65%, history of recurrent atrial fibrillation and bradycardia and because of that, metoprolol was decreased from 25 mg extended release to 12.5 mg extended release once a day. 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 PAST SURGICAL HISTORY: Includes inguinal hernia repair x 2, he had a cyst removed from his scalp and also had hernia repair. FAMILY HISTORY: Mother had stomach cancer and multiple sclerosis. SOCIAL HISTORY: No history of smoking, alcoholism or drug abuse. ALLERGIES: THE PATIENT IS ALLERGIC TO CHLORPHENIRAMINE, OXYMETAZOLINE, PHENIRAMINE, PHENYLEPHRINE, AND PSEUDOEPHEDRINE. MEDICATIONS: I have reviewed the medications. I am not sure if he is taking his medications regularly. He has a history of severe noncompliance. PHYSICAL EXAMINATION: VITAL SIGNS: Temperature 98.9, pulse 59 per minute, respirations 14 per minute, blood pressure 149/109 mmHg. GENERAL: The patient is an elderly male who is alert, oriented, but forgetful and a poor historian, not in acute distress. EYES: Partial exam unremarkable. SKIN: Warm and dry. There is no cyanosis. THROAT: Not examined. NECK: JVP normal. No thyromegaly. LUNGS: Decreased breath sounds bilaterally. CARDIOVASCULAR: S1, S2 regular. ABDOMEN: Soft, tenderness present in the right upper quadrant. There is no guarding, no rigidity. Bowel sounds present. EXTREMITIES: No edema. CENTRAL NERVOUS SYSTEM: Alert, has generalized weakness, but more on the left side. He is a poor historian. No acute changes noted. LABORATORY FINDINGS: As noted in the history of present illness. IMPRESSION: 1. Acute cholecystitis. 2. Hypertension, not controlled. 3. Gastroesophageal reflux disease. 4. History of atrial fibrillation with bradycardia. 5. 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 6. Left inguinal hernia. 7. Acquired hypothyroidism. 8. History of schizophrenia 9. History of noncompliance. 10. History of paroxysmal atrial fibrillation, not a candidate for anticoagulation. PLAN: I will consult Surgery for evaluation of the acute cholecystitis. Start IV Zosyn. Change IV fluids and add potassium to it because potassium is 3.5, give IV Lopressor p.r.n. for high blood pressure. Monitor for arrhythmia. Follow up EKG and chest x-ray. We will not start on DVT prophylaxis because of possible surgery. Keep the patient n.p.o. For details, please refer to the orders. ANUM CESPEDES MD DR: JAVIER/elan JOB#: [id number] / [id number]
--- NOTE | 2020-07-12 11:33 | RAD ---
EXAM: CHEST 2 VIEWS. HISTORY: Hypertension. COMPARISON: 02/16/2020. FINDINGS: Frontal and lateral views of the chest are obtained. There are no confluent infiltrates. There is no pneumothorax or pleural effusion. The heart is not enlarged. Moderate compression deformity within the upper lumbar spine was not visualized on the prior study and may be new. There is a mild lower thoracic dextroscoliosis. IMPRESSION: 1. No confluent infiltrates. 2. Correlate for a subacute upper lumbar compression fracture. Electronically signed by: Hedy Knutson MD (07/12/2020 11:30 AM) [id number]
[2020-07-12] MEDS: POTASSIUM CL 20MEQ D5-0.45NACL 1,000 ML IV SCH ×2 (11:46→22:05)
--- NOTE | 2020-07-12 11:48 | PDOC2 ---
ERIC PRABHAKAR [employer] 07/12/20 1148: CONSULT Date of Consult Date of Consult DATE: 07/12/20 TIME: 11:33 Reason for Consult Reason for Consult: cholecystitis Referring Physician Referring Physician: ER Identification/Chief Complaint Chief Complaint abdominal pain Source Source: Chart review, Patient History of Present Illness Reason for Visit: Very poor historian. Tells me started having abdominal pain last night. Associated nausea, dry heaving. Lives with son. Denies constipation or diarrhea. Unsure if fevers or chills. Tells me he has not taken any of his medications in several weeks. States he has not taken any of his medications since discharged from rehab Past Medical History Cardiovascular: AFIB CENTRAL NERVOUS SYSTEM: CVA GI: GERD, Other Endocrine: Hypothyroidism Past Surgical History Past Surgical History: Other Family History Family History: No Significant Social History ALCOHOL: none Drugs: None Lives: with Family Current Problem List Problem List Problems Medical Problems: (1) Acute cholecystitis Status: Acute Current Medications Current Medications Current Medications Sodium Chloride 1,000 ml @ 1,000 mls/hr 1X ONCE IV Last administered on 07/12/20at 08:08; Start 07/12/20 at 07:30; Stop 07/12/20 at 08:29; Status DC Ondansetron HCl (Zofran) 4 mg 1X ONCE IV Last administered on 07/12/20at 08:08; Start 07/12/20 at 07:30; Stop 07/12/20 at 07:31; Status DC Ondansetron HCl (Zofran) 4 mg PRN Q8HRS PRN IV NAUSEA/VOMITING; Start 07/12/20 at 09:15; Stop 07/13/20 at 09:14 Fentanyl Citrate (Fentanyl 2ml Vial) 25 mcg PRN Q1HR PRN IV PAIN; Start 07/12/20 at 09:15; Stop 07/13/20 at 09:14 Sodium Chloride 1,000 ml @ 125 mls/hr Q8H IV ; Start 07/12/20 at 09:15; Stop 07/12/20 at 10:15; Status DC Potassium Chloride 20 meq/ Dextrose/Sodium Chloride 1,010 ml @ 100 mls/hr Q1 0H6M IV ; Start 07/12/20 at 10:15; Stop 07/12/20 at 10:24; Status DC Pantoprazole Sodium (PROTONIX VIAL for IV PUSH) 40 mg DAILY07 IVP ; Start 07/13/20 at 07:00 Piperacillin Sod/ Tazobactam Sod (Zosyn Per Pharmacy) 1 each PRN DAILY PRN MC SEE COMMENTS; Start 07/12/20 at 10:15; Status UNV Metoprolol Tartrate (Lopressor Vial) 5 mg PRN Q6HRS PRN IVP SBP > 160; Start 07/12/20 at 10:15 Piperacillin Sod/ Tazobactam Sod 3.375 gm/Sodium Chloride 50 ml @ 100 mls/hr ONCE ONCE IV Last administered on 07/12/20at 11:08; Start 07/12/20 at 10:30; Stop 07/12/20 at 10:59; Status DC Potassium Chloride/Dextrose/ Sod Cl 1,000 ml @ 100 mls/hr Q10H IV ; Start 07/12/20 at 10:30 Active Scripts Active Aspirin Ec (Aspirin) 81 Mg Tablet. 81 Mg PO DAILYWBKFT 30 Days Reported Clopidogrel (Clopidogrel Bisulfate) 75 Mg Tablet 75 Mg PO DAILY Omeprazole 20 Mg Capsule.dr 20 Mg PO DAILY Levothyroxine Sodium 100 Mcg Tablet 100 Mcg PO DAILY Lisinopril 5 Mg Tablet 5 Mg PO DAILY Metoprolol Succinate ( Xl ) (Metoprolol Succinate) 25 Mg Tab.er.24h 0.5 Tab PO DAILY Allergies Allergies: Coded Allergies: chlorpheniramine (Verified Allergy, Intermediate, 07/03/16) pt did not remember reaction oxymetazoline (Verified Allergy, Intermediate, 07/03/16) pt did not remember reaction pheniramine (Verified Allergy, Intermediate, 07/03/16) pt did not remember reaction phenylephrine (Verified Allergy, Intermediate, 07/03/16) pt did not remember reaction pseudoephedrine (Verified Allergy, Intermediate, 07/03/16) pt did not remember reaction ROS General: No: Chills, Other (fevers) PSYCHOLOGICAL ROS: No: Anxiety, Depression Eyes: No Blurry vision, No Double vision HEENT: No: Heacaches, Sore Throat Hematological and Lymphatic: YES: Bleeding Problems; No: Blood Clots Respiratory: No: Cough, Shortness of breath Cardiovascular: No Chest Pain, No Palpitations Gastrointestinal: Yes Other (see hpi) Genitourinary: No Dysuria, No Hematuria Musculoskeletal: No Joint Pain, No Muscle Pain Neurological: No Impaired Coord/balance, No Numbness/Tingling Skin: No Pruritus, No Rash Physical Exam General: Cooperative HEENT: Atraumatic, Mucous membr. moist/pink Lungs: Clear to auscultation, Normal air movement Heart: Regular rate, Normal S1, Normal S2 Abdomen: Soft, No masses (TTP upper abdomen, RUQ and epigastric area ), Other Extremities: No cyanosis, No edema Skin: No rashes, No breakdown Neuro: Normal speech, Sensation intact Psych/Mental Status: Mental status NL, Mood NL MUSCULOSKELETAL: No deformity, No swelling Vitals VITALS Vital Signs Date Time Temp Pulse Resp B/P (MAP) Pulse Ox O2 Delivery O2 Flow Rate FiO2 07/12/20 08:30 62 20 173/83 (113) 97 Room Air 07/12/20 07:12 98.9 98.9 Labs Labs Laboratory Tests Test 07/12/20 07:43 07/12/20 10:09 White Blood Count 12.2 x10^3/uL (4.0-11.0) Red Blood Count 4.39 x10^6/uL (4.30-5.70) Hemoglobin 13.8 g/dL (13.0-17.5) Hematocrit 40.6 % (39.0-53.0) Mean Corpuscular Volume 93 fL (79-100) Mean Corpuscular Hemoglobin 32 pg (25-35) Mean Corpuscular Hemoglobin Concent 34 g/dL (31-37) Red Cell Distribution Width 14.3 % (11.5-14.5) Platelet Count 172 x10^3/uL (140-400) Neutrophils (%) (Auto) 79 % (31-73) Lymphocytes (%) (Auto) 11 % (24-48) Monocytes (%) (Auto) 10 % (0-9) Eosinophils (%) (Auto) 0 % (0-3) Basophils (%) (Auto) 0 % (0-3) Neutrophils # (Auto) 9.6 x10^3/uL (1.8-7.7) Lymphocytes # (Auto) 1.3 x10^3/uL (1.0-4.8) Monocytes # (Auto) 1.2 x10^3/uL (0.0-1.1) Eosinophils # (Auto) 0.0 x10^3/uL (0.0-0.7) Basophils # (Auto) 0.1 x10^3/uL (0.0-0.2) Sodium Level 139 mmol/L (136-145) Potassium Level 3.5 mmol/L (3.5-5.1) Chloride Level 106 mmol/L (98-107) Carbon Dioxide Level 23 mmol/L (21-32) Anion Gap 10 (6-14) Blood Urea Nitrogen 10 mg/dL (8-26) Creatinine 0.9 mg/dL (0.7-1.3) Estimated GFR (Cockcroft-Gault) 81.2 BUN/Creatinine Ratio 11 (6-20) Glucose Level 143 mg/dL (70-99) Calcium Level 8.5 mg/dL (8.5-10.1) Total Bilirubin 0.7 mg/dL (0.2-1.0) Aspartate Amino Transf (AST/SGOT) 20 U/L (15-37) Alanine Aminotransferase (ALT/SGPT) 15 U/L (16-63) Alkaline Phosphatase 74 U/L (46-116) Troponin I Quantitative < 0.017 ng/mL (0.000-0.055) Total Protein 7.5 g/dL (6.4-8.2) Albumin 3.3 g/dL (3.4-5.0) Albumin/Globulin Ratio 0.8 (1.0-1.7) Lipase 125 U/L (73-393) Urine Collection Type Unknown Urine Color Shelley Urine Clarity Clear Urine pH 5.5 (<5.0-8.0) Urine Specific Festus 1.025 (1.000-1.030) Urine Protein Negative mg/dL (NEG-TRACE) Urine Glucose (UA) Negative mg/dL (NEG) Urine Ketones (Stick) Negative mg/dL (NEG) Urine Blood Negative (NEG) Urine Nitrite Negative (NEG) Urine Bilirubin Negative (NEG) Urine Urobilinogen Dipstick 1.0 mg/dL (0.2 mg/dL) Urine Leukocyte Esterase Negative (NEG) Urine RBC Occ /HPF (0-2) Urine WBC 1-4 /HPF (0-4) Urine Bacteria Few /HPF (0-FEW) Urine Mucus Marked /LPF Laboratory Tests Test 07/12/20 07:43 8/18/20 10:09 White Blood Count 12.2 x10^3/uL (4.0-11.0) Red Blood Count 4.39 x10^6/uL (4.30-5.70) Hemoglobin 13.8 g/dL (13.0-17.5) Hematocrit 40.6 % (39.0-53.0) Mean Corpuscular Volume 93 fL (79-100) Mean Corpuscular Hemoglobin 32 pg (25-35) Mean Corpuscular Hemoglobin Concent 34 g/dL (31-37) Red Cell Distribution Width 14.3 % (11.5-14.5) Platelet Count 172 x10^3/uL (140-400) Neutrophils (%) (Auto) 79 % (31-73) Lymphocytes (%) (Auto) 11 % (24-48) Monocytes (%) (Auto) 10 % (0-9) Eosinophils (%) (Auto) 0 % (0-3) Basophils (%) (Auto) 0 % (0-3) Neutrophils # (Auto) 9.6 x10^3/uL (1.8-7.7) Lymphocytes # (Auto) 1.3 x10^3/uL (1.0-4.8) Monocytes # (Auto) 1.2 x10^3/uL (0.0-1.1) Eosinophils # (Auto) 0.0 x10^3/uL (0.0-0.7) Basophils # (Auto) 0.1 x10^3/uL (0.0-0.2) Sodium Level 139 mmol/L (136-145) Potassium Level 3.5 mmol/L (3.5-5.1) Chloride Level 106 mmol/L (98-107) Carbon Dioxide Level 23 mmol/L (21-32) Anion Gap 10 (6-14) Blood Urea Nitrogen 10 mg/dL (8-26) Creatinine 0.9 mg/dL (0.7-1.3) Estimated GFR (Cockcroft-Gault) 81.2 BUN/Creatinine Ratio 11 (6-20) Glucose Level 143 mg/dL (70-99) Calcium Level 8.5 mg/dL (8.5-10.1) Total Bilirubin 0.7 mg/dL (0.2-1.0) Aspartate Amino Transf (AST/SGOT) 20 U/L (15-37) Alanine Aminotransferase (ALT/SGPT) 15 U/L (16-63) Alkaline Phosphatase 74 U/L (46-116) Troponin I Quantitative < 0.017 ng/mL (0.000-0.055) Total Protein 7.5 g/dL (6.4-8.2) Albumin 3.3 g/dL (3.4-5.0) Albumin/Globulin Ratio 0.8 (1.0-1.7) Lipase 125 U/L (73-393) Urine Collection Type Unknown Urine Color Shelley Urine Clarity Clear Urine pH 5.5 (<5.0-8.0) Urine Specific Festus 1.025 (1.000-1.030) Urine Protein Negative mg/dL (NEG-TRACE) Urine Glucose (UA) Negative mg/dL (NEG) Urine Ketones (Stick) Negative mg/dL (NEG) Urine Blood Negative (NEG) Urine Nitrite Negative (NEG) Urine Bilirubin Negative (NEG) Urine Urobilinogen Dipstick 1.0 mg/dL (0.2 mg/dL) Urine Leukocyte Esterase Negative (NEG) Urine RBC Occ /HPF (0-2) Urine WBC 1-4 /HPF (0-4) Urine Bacteria Few /HPF (0-FEW) Urine Mucus Marked /LPF Assessment/Plan Assessment/Plan abdominal pain significant cardiac hx on plavix--although patient says has taken no medications in [address]-- thickened GB wall--no stones--will check US to eval further MANOHAR COKER MD 07/12/20 8025: CONSULT Assessment/Plan Assessment/Plan Pt seen and examined by myself; fairly poor historian. Reported to ER with abdominal pain, CT consistent with acute cholecystitis; PMH/PSH/ROS/SH as above; exam: alert, oriented, uncomfortable, lungs clear, heart RR and R, abdomen soft, tender in RUQ with guarding, ext neg for edema. Labs and Xrays reviewed. A/P) Acute cholecystitis, plan for lap eml. The details and risks of surgery were discussed with the patient; he understands and would like to proceed. ERIC PRABHAKAR APRN Jul 12, 2020 11:48 MANOHAR COKER MD Jul 12, 2020 17:25
[2020-07-12] MEDS ORDERED: PIP/TAZO PER PHARMACY MC PRN (12:15)
[2020-07-12] MEDS ORDERED: IV RINGERS,LACTATED 1000ML 1,000 ML IV SCH (16:08)
[2020-07-12] MEDS ORDERED: MORPHINE SULFATE 2 MG/ML VIAL. IV PRN (16:15)
[2020-07-12] MEDS ORDERED: PROCHLORPERAZINE 10 MG/2 ML VIAL. IV PRN (16:15)
[2020-07-12] MEDS ORDERED: HYDROmorphone 2 MG/ML VIAL IV PRN (16:15)
[2020-07-12] MEDS ORDERED: ETOMIDATE 20 MG/10 ML VIAL. IV ONE (18:01)
[2020-07-12] MEDS ORDERED: LIDOCAINE 2% PF 5 ML VIAL. ONE (18:02)
[2020-07-12] MEDS ORDERED: fentaNYL PF VIAL 100 MCG/2 ML VIAL ONE ×2 (18:03→19:22)
[2020-07-12] MEDS ORDERED: ROCURONIUM 50 MG/5 ML VIAL. ONE (18:03)
[2020-07-12] MEDS ORDERED: PHENYLEPHRINE in 0.9% NACL PF 1 MG/10 ML SYRINGE. IV ONE (18:03)
[2020-07-12] MEDS ORDERED: SURGICEL HEMOSTAT 4X8 EACH. ONE ×2 (18:04→19:35)
[2020-07-12] MEDS ORDERED: BUPIVACAINE MPF 0.5% 30 ML VIAL. ONE (18:04)
[2020-07-12] MEDS ORDERED: IOHEXOL 300 MG/ML 50 ML VIAL. ONE (18:04)
[2020-07-12] MEDS ORDERED: DEXAMETHASONE SOD PHOS 4 MG/ML VIAL ONE (18:32)
[2020-07-12] MEDS ORDERED: ONDANSETRON PF 4 MG/2 ML VIAL. ONE (18:32)
[2020-07-12] MEDS: PIPERACILLIN/TAZOBACTAM 3.375 GM in IV NORMAL SALINE 50ML 50 ML IV SCH (18:35)
[2020-07-12] MEDS ORDERED: NEOSTIGMINE METHYLSULFATE 5 MG/5 ML SYRINGE. ONE (18:57)
[2020-07-12] MEDS ORDERED: GLYCOPYRROLATE 1 MG/5 ML VIAL. ONE (19:00)
[2020-07-12] MEDS ORDERED: SEVOFLURANE 61 TO 120 MINUTES. IH ONE (19:54)
--- NOTE | 2020-07-12 19:56 | PDOC4 ---
Operative Note Operative Note Operative Note: Preoperative Diagnosis: Acute cholecystitis Postoperative Diagnosis: Gangrenous cholecystitis Procedure: Laparoscopic cholecystectomy with intraoperative cholangiogram Surgeons: Jaswinder Anesthesia: GenPadmini Estimated Blood Loss: 75 mL Specimen: Gallbladder to pathology Drains: 19 Niuean JASON drain to right upper quadrant Complications: None Indications: The patient is an 80-year-old male who was admitted with abdominal pain. His evaluation is consistent with acute cholecystitis. Surgical treatment was offered by means of a laparoscopic cholecystectomy. The risks of surgery were discussed which include bleeding, infection, bile duct injury, bile leak, pain, the potential for additional surgeries or procedures. The patient understands and would like to proceed. Description: The patient was taken to the operating room and laid supine on the operating table. General anesthesia was performed. The abdomen was prepped with ChloraPrep and draped in a standard surgical fashion. A small infraumbilical incision was made with a scalpel. The Veress needle was then inserted and a pneumoperitoneum was then created. A 5 mm trocar was then inserted and the laparoscope was introduced. In the upper midabdomen an 11 mm trocar was inserted and in the right upper quadrant two 5 mm trochars were inserted. The gallbladder was initially prescribed by omentum due to a marked inflammatory response. The omentum was peeled away exposing a markedly inflamed gallbladder with patchy gangrenous change. The gallbladder was retracted cephalad. The cystic duct was dissected free from surrounding tissues. One clip was placed on the duct near the gallbladder junction. An opening was made in the duct and a cholangiocatheter placed within and secured with a clip. Using contrast dye and fluoroscopy an intraoperative cholangiogram was performed that appeared unremarkable. The clip and catheter were then withdrawn. Three clips were placed on the cystic duct and it was divided. The cystic artery was then identified, dissected free, doubly clipped and divided as well. The gallbladder was then mobilized away from the liver with cautery. This was difficult due to the marked inflammatory change which obscured normal tissue planes. A Surgicel pack was placed on the gallbladder fossa to assist with oozing. A 19 Niuean JASON drain was also left in the right upper quadrant with an exit site in the right lateral port incision. This was secured to the skin with 2-0 silk. The gallbladder was then placed in an endoscopic bag and extracted at the superior trocar site. The fascia there was closed with an 0 PDS sutures. All blood and irrigation fluid was suctioned and hemostasis was good. The remaining ports were removed and the pneumoperitoneum was relieved. The skin incisions were closed using 4-0 Monocryl suture. Steri-Strips and dressings were then applied. The patient tolerated the procedure well and was sent to the recovery room in stable condition. At the end of the case all counts were correct. MANOHAR COKER MD Jul 12, 2020 19:56
[2020-07-12] MEDS ORDERED: HYDROcodone/APAP 5/325MG 1 TAB TABLET PO PRN (20:00)
--- NOTE | 2020-07-12 20:40 | NUR ---
NURSING NOTE Pt returned to room from PACU at this time. Pt is drowsy, but easily roused to verbal stimuli. Pt has [address]ings in place on abdomen and a RLQ JASON drain with serous output. Pt denies need to void at this time or wanting anything to drink. IVF restarted. Call light in reach. Will monitor.
[2020-07-13] MEDS: PIPERACILLIN/TAZOBACTAM 3.375 GM in IV NORMAL SALINE 50ML 50 ML IV SCH ×4 (00:01→18:33)
[2020-07-13] MEDS: POTASSIUM CL 20MEQ D5-0.45NACL 1,000 ML IV SCH ×2 (00:04→15:55)
[2020-07-13 00:30] VITALS: BP 112/56
--- NOTE | 2020-07-13 04:15 | NUR ---
NURSING NOTE Pt has not voided since surgery. Pt attempted to void by standing at bedside with assistance and urinal. Pt unable to void. Pt bladder scanned was difficult due to bilateral large inguinal hernias. Bladder scan showed anywhere from 0mL to 330mL after multiple attempts. Pt straight cath per protocol, 140mL of kp color urine. Will monitor.
[2020-07-13 07:00] VITALS: BP 115/51
[2020-07-13] MEDS ORDERED: PANTOPRAZOLE IV PUSH 40 MG VIAL. IVP SCH (07:00)
[2020-07-13 07:23] LABS: BASO % 0 % (0-3); EOS % 0 % (0-3); HEMATOCRIT 39.9 % (39.0-53.0); HEMOGLOBIN 13.7 g/dL (13.0-17.5); LYMPH # 1.1 x10^3/uL (1.0-4.8); LYMPH % 10 % (24-48); MEAN CORPUSCULAR HEMOGLOBIN 32 pg (25-35); MEAN CORPUSCULAR HGB CONC 34 g/dL (31-37); MEAN CORPUSCULAR VOLUME 94 fL (79-100); MONO % 9 % (0-9); NEUT # 8.9 x10^3/uL (1.8-7.7); NEUT % 81 % (31-73); PLATELET COUNT 161 x10^3/uL (140-400); RED BLOOD COUNT 4.25 x10^6/uL (4.30-5.70); RED CELL DISTRIBUTION WIDTH 14.5 % (11.5-14.5); WHITE BLOOD COUNT 11.1 x10^3/uL (4.0-11.0)
[2020-07-13 08:00] LABS: ALBUMIN 2.8 g/dL (3.4-5.0); ALBUMIN/GLOBULIN RATIO 0.6 (1.0-1.7); CALCIUM 8.5 mg/dL (8.5-10.1); GFR 71.9; POTASSIUM 3.6 mmol/L (3.5-5.1); TOTAL BILIRUBIN 1.2 mg/dL (0.2-1.0); TOTAL PROTEIN 7.2 g/dL (6.4-8.2)
--- NOTE | 2020-07-13 08:33 | RAD ---
EXAM: INTRAOPERATIVE CHOLANGIOGRAM. HISTORY: Intraoperative cholangiogram with cholecystectomy. COMPARISON: None. FINDINGS: One fluoroscopic image is obtained intraoperatively during injection of the cystic duct remnant after cholecystectomy. There are no filling defects to suggest retained stones. The common duct is not dilated. Fluoroscopy time 0.8 minutes. IMPRESSION: 1. No evidence of retained stones. Electronically signed by: Hedy Knutson MD (07/13/2020 8:30 AM) [id number]
--- NOTE | 2020-07-13 10:10 | PDOC ---
IM PROGRESS NOTES- Subjective Subjective Has abdominal pain Objective Vitals/I&O Vital Signs Date Time Temp Pulse Resp B/P (MAP) Pulse Ox O2 Delivery O2 Flow Rate FiO2 07/13/20 08:33 Room Air 07/13/20 07:00 97.8 66 17 115/51 (72) 94 97.8 07/12/20 20:16 10 I & O 07/12/20 07/12/20 07/13/20 15:00 23:00 07:00 Intake Total 1000 ml 1050 ml 1000 ml Output Total 255 ml 0 ml Balance 1000 ml 795 ml 1000 ml Physical Exam Physical Exam General appearance - alert,well appearing, and in no distress and oriented to person, place, and time Mental Status - alert, oriented to person, place, and time, affect appropriate to mood Head - normal Chest -decreased breath sounds at bases Heart - S1 and S2 normal Abdomen - soft, status post surgery Neurological - alert and oriented, has chronic cognitive deficits Extremities - no pedal edema Skin - warm and dry Labs Laboratory Tests Test 07/12/20 10:09 07/12/20 15:00 07/12/20 20:06 07/13/20 04:40 Urine Collection Type Unknown Urine Color Shelley Urine Clarity Clear Urine pH 5.5 (<5.0-8.0) Urine Specific Wilder 1.025 (1.000-1.030) Urine Protein Negative mg/dL (NEG-TRACE) Urine Glucose (UA) Negative mg/dL (NEG) Urine Ketones (Stick) Negative mg/dL (NEG) Urine Blood Negative (NEG) Urine Nitrite Negative (NEG) Urine Bilirubin Negative (NEG) Urine Urobilinogen Dipstick 1.0 mg/dL (0.2 mg/dL) Urine Leukocyte Esterase Negative (NEG) Urine RBC Occ /HPF (0-2) Urine WBC 1-4 /HPF (0-4) Urine Bacteria Few /HPF (0-FEW) Urine Mucus Marked /LPF SARS-CoV-2 Antigen (Rapid) Negative (NEGATIVE) Glucose (Fingerstick) 175 mg/dL (70-99) H White Blood Count 11.1 x10^3/uL (4.0-11.0) H Red Blood Count 4.25 x10^6/uL (4.30-5.70) L Hemoglobin 13.7 g/dL (13.0-17.5) Hematocrit 39.9 % (39.0-53.0) Mean Corpuscular Volume 94 fL (79-100) Mean Corpuscular Hemoglobin 32 pg (25-35) Mean Corpuscular Hemoglobin Concent 34 g/dL (31-37) Red Cell Distribution Width 14.5 % (11.5-14.5) Platelet Count 161 x10^3/uL (140-400) Neutrophils (%) (Auto) 81 % (31-73) H Lymphocytes (%) (Auto) 10 % (24-48) L Monocytes (%) (Auto) 9 % (0-9) Eosinophils (%) (Auto) 0 % (0-3) Basophils (%) (Auto) 0 % (0-3) Neutrophils # (Auto) 8.9 x10^3/uL (1.8-7.7) H Lymphocytes # (Auto) 1.1 x10^3/uL (1.0-4.8) Monocytes # (Auto) 1.0 x10^3/uL (0.0-1.1) Eosinophils # (Auto) 0.0 x10^3/uL (0.0-0.7) Basophils # (Auto) 0.0 x10^3/uL (0.0-0.2) Sodium Level 141 mmol/L (136-145) Potassium Level 3.6 mmol/L (3.5-5.1) Chloride Level 106 mmol/L (98-107) Carbon Dioxide Level 26 mmol/L (21-32) Anion Gap 9 (6-14) Blood Urea Nitrogen 8 mg/dL (8-26) Creatinine 1.0 mg/dL (0.7-1.3) Estimated GFR (Cockcroft-Gault) 71.9 BUN/Creatinine Ratio 8 (6-20) Glucose Level 134 mg/dL (70-99) H Calcium Level 8.5 mg/dL (8.5-10.1) Total Bilirubin 1.2 mg/dL (0.2-1.0) H Aspartate Amino Transferase (AST) 45 U/L (15-37) H Alanine Aminotransferase (ALT) 37 U/L (16-63) Alkaline Phosphatase 63 U/L (46-116) Total Protein 7.2 g/dL (6.4-8.2) Albumin 2.8 g/dL (3.4-5.0) L Albumin/Globulin Ratio 0.6 (1.0-1.7) L Laboratory Tests 07/13/20 04:40 Laboratory Tests 07/13/20 04:40 Meds Current Medications Medications (Trade) Dose Ordered Sig/Manny Route PRN Reason Start Time Stop Time Status Last Admin Dose Admin Pantoprazole Sodium (PROTONIX VIAL for IV PUSH) 40 mg DAILY07 IVP 07/13/20 07:00 07/13/20 08:33 Piperacillin Sod/ Tazobactam Sod 3.375 gm/Sodium Chloride 50 ml @ 100 mls/hr ONCE ONCE IV 07/12/20 10:30 07/12/20 10:59 DC 07/12/20 11:08 Potassium Chloride/Dextrose/ Sod Cl 1,000 ml @ 100 mls/hr Q10H IV 07/12/20 10:30 07/13/20 00:04 Piperacillin Sod/ Tazobactam Sod 3.375 gm/Sodium Chloride 50 ml @ 100 mls/hr Q6HRS IV 07/12/20 18:00 07/13/20 06:33 Ringer's Solution 1,000 ml @ 30 mls/hr Q24H IV 07/12/20 16:08 07/13/20 04:07 DC 07/12/20 20:28 Iohexol (Omnipaque 300 Mg/ml) 50 ml STK-MED ONCE .ROUTE 07/12/20 18:04 07/12/20 18:04 DC 07/12/20 18:51 Cellulose (Surgicel Hemostat 4x8) 1 each STK-MED ONCE .ROUTE 07/12/20 18:04 07/12/20 18:04 DC 07/12/20 19:24 Bupivacaine HCl (Sensorcaine Mpf 0.5%) 30 ml STK-MED ONCE .ROUTE 07/12/20 18:04 07/12/20 18:04 DC 07/12/20 18:51 Cellulose (Surgicel Hemostat 4x8) 1 each STK-MED ONCE .ROUTE 07/12/20 19:35 07/12/20 19:35 DC 07/12/20 19:36 Acetaminophen/ Hydrocodone Bitart (Lortab 5/325) 1 tab PRN Q4HRS PRN PO MODERATE PAIN 07/12/20 20:00 07/13/20 06:35 Assessment Assessment 1. Acute cholecystitis. 2. Hypertension, not controlled. 3. Gastroesophageal reflux disease. 4. History of atrial fibrillation with bradycardia. 5. 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 6. Left inguinal hernia. 7. Acquired hypothyroidism. 8. History of schizophrenia 9. History of noncompliance. 10. History of paroxysmal atrial fibrillation, not a candidate for anticoagulation. PLAN: I will consult Surgery for evaluation of the acute cholecystitis. Start IV Zosyn. Change IV fluids and add potassium to it because potassium is 3.5, give IV Lopressor p.r.n. for high blood pressure. Monitor for arrhythmia. Follow up EKG and chest x-ray. We will not start on DVT prophylaxis because of possible surgery. Keep the patient n.p.o. For details, please refer to the orders. Acute cholecystitis-his gangrenous cholecystitis. Had laparoscopic cholecystectomy by Dr. Valadez on July 12, 2020. Continue IV Zosyn and IV fluids. Plan Plan For more details regarding further plans, please refer to the orders. Justicifation of Admission Dx: Justifications for Admission: Justification of Admission Dx: Yes ANUM CESPEDES MD Jul 13, 2020 10:10
[2020-07-13 10:43] VITALS: BP 114/72
--- NOTE | 2020-07-13 11:00 | NUR ---
SW following. Discussed with RN, pt from home with family, npo, COVID-19 negative. PT/OT ordered. Pt has been to [facility] in the past. SW will continue to follow.
[2020-07-13] MEDS: PANTOPRAZOLE 40 MG TABLET.DR. PO SCH (11:30)
--- NOTE | 2020-07-13 11:45 | NUR ---
Non-administered patients 1130 dose of Pantoprazole, due to patient receiving a dose of Pantoprazole IV this AM.
[2020-07-13] MEDS: LEVOTHYROXINE 100 MCG TABLET PO SCH (12:18)
[2020-07-13] MEDS: METOPROLOL SUCC 24HR ER 25 MG TAB.ER.24H. PO SCH (12:18)
[2020-07-13] MEDS: HYDROcodone/APAP 5/325MG 1 TAB TABLET PO PRN ×2 (12:27→21:20)
--- NOTE | 2020-07-13 13:59 | PDOC ---
PROGRESS NOTES Date of Service DATE: 07/13/20 TIME: 13:58 Subjective Subjective Feeling better Objective Objective Vital Signs Date Time Temp Pulse Resp B/P (MAP) Pulse Ox O2 Delivery O2 Flow Rate FiO2 07/13/20 13:51 Room Air 07/13/20 12:18 66 114/72 07/13/20 10:43 97.9 17 94 97.9 07/12/20 20:16 10 Intake and Output 07/13/20 07:00 Intake Total 3050 ml Output Total 255 ml Balance 2795 ml IV Total 3050 ml Output Urine Total 150 ml Drainage Total 30 ml Estimated Blood Loss 75 ml Physical Exam Abdomen: Soft (JASON with serosang fluid) Assessment Assessment Problems Medical Problems: (1) Acute cholecystitis Status: Acute Plan Plan of Care Postop care Comment Review of Relevant I have reviewed the following items shelly (where applicable) has been applied. Labs Laboratory Tests Test 07/12/20 07:43 07/12/20 10:09 07/12/20 15:00 07/12/20 20:06 White Blood Count 12.2 x10^3/uL (4.0-11.0) Red Blood Count 4.39 x10^6/uL (4.30-5.70) Hemoglobin 13.8 g/dL (13.0-17.5) Hematocrit 40.6 % (39.0-53.0) Mean Corpuscular Volume 93 fL (79-100) Mean Corpuscular Hemoglobin 32 pg (25-35) Mean Corpuscular Hemoglobin Concent 34 g/dL (31-37) Red Cell Distribution Width 14.3 % (11.5-14.5) Platelet Count 172 x10^3/uL (140-400) Neutrophils (%) (Auto) 79 % (31-73) Lymphocytes (%) (Auto) 11 % (24-48) Monocytes (%) (Auto) 10 % (0-9) Eosinophils (%) (Auto) 0 % (0-3) Basophils (%) (Auto) 0 % (0-3) Neutrophils # (Auto) 9.6 x10^3/uL (1.8-7.7) Lymphocytes # (Auto) 1.3 x10^3/uL (1.0-4.8) Monocytes # (Auto) 1.2 x10^3/uL (0.0-1.1) Eosinophils # (Auto) 0.0 x10^3/uL (0.0-0.7) Basophils # (Auto) 0.1 x10^3/uL (0.0-0.2) Sodium Level 139 mmol/L (136-145) Potassium Level 3.5 mmol/L (3.5-5.1) Chloride Level 106 mmol/L (98-107) Carbon Dioxide Level 23 mmol/L (21-32) Anion Gap 10 (6-14) Blood Urea Nitrogen 10 mg/dL (8-26) Creatinine 0.9 mg/dL (0.7-1.3) Estimated GFR (Cockcroft-Gault) 81.2 BUN/Creatinine Ratio 11 (6-20) Glucose Level 143 mg/dL (70-99) Calcium Level 8.5 mg/dL (8.5-10.1) Total Bilirubin 0.7 mg/dL (0.2-1.0) Aspartate Amino Transf (AST/SGOT) 20 U/L (15-37) Alanine Aminotransferase (ALT/SGPT) 15 U/L (16-63) Alkaline Phosphatase 74 U/L (46-116) Troponin I Quantitative < 0.017 ng/mL (0.000-0.055) Total Protein 7.5 g/dL (6.4-8.2) Albumin 3.3 g/dL (3.4-5.0) Albumin/Globulin Ratio 0.8 (1.0-1.7) Lipase 125 U/L (73-393) Urine Collection Type Unknown Urine Color Shelley Urine Clarity Clear Urine pH 5.5 (<5.0-8.0) Urine Specific [place] 1.025 (1.000-1.030) Urine Protein Negative mg/dL (NEG-TRACE) Urine Glucose (UA) Negative mg/dL (NEG) Urine Ketones (Stick) Negative mg/dL (NEG) Urine Blood Negative (NEG) Urine Nitrite Negative (NEG) Urine Bilirubin Negative (NEG) Urine Urobilinogen Dipstick 1.0 mg/dL (0.2 mg/dL) Urine Leukocyte Esterase Negative (NEG) Urine RBC Occ /HPF (0-2) Urine WBC 1-4 /HPF (0-4) Urine Bacteria Few /HPF (0-FEW) Urine Mucus Marked /LPF SARS-CoV-2 Antigen (Rapid) Negative (NEGATIVE) Glucose (Fingerstick) 175 mg/dL (70-99) Test 07/13/20 04:40 White Blood Count 11.1 x10^3/uL (4.0-11.0) Red Blood Count 4.25 x10^6/uL (4.30-5.70) Hemoglobin 13.7 g/dL (13.0-17.5) Hematocrit 39.9 % (39.0-53.0) Mean Corpuscular Volume 94 fL (79-100) Mean Corpuscular Hemoglobin 32 pg (25-35) Mean Corpuscular Hemoglobin Concent 34 g/dL (31-37) Red Cell Distribution Width 14.5 % (11.5-14.5) Platelet Count 161 x10^3/uL (140-400) Neutrophils (%) (Auto) 81 % (31-73) Lymphocytes (%) (Auto) 10 % (24-48) Monocytes (%) (Auto) 9 % (0-9) Eosinophils (%) (Auto) 0 % (0-3) Basophils (%) (Auto) 0 % (0-3) Neutrophils # (Auto) 8.9 x10^3/uL (1.8-7.7) Lymphocytes # (Auto) 1.1 x10^3/uL (1.0-4.8) Monocytes # (Auto) 1.0 x10^3/uL (0.0-1.1) Eosinophils # (Auto) 0.0 x10^3/uL (0.0-0.7) Basophils # (Auto) 0.0 x10^3/uL (0.0-0.2) Sodium Level 141 mmol/L (136-145) Potassium Level 3.6 mmol/L (3.5-5.1) Chloride Level 106 mmol/L (98-107) Carbon Dioxide Level 26 mmol/L (21-32) Anion Gap 9 (6-14) Blood Urea Nitrogen 8 mg/dL (8-26) Creatinine 1.0 mg/dL (0.7-1.3) Estimated GFR (Cockcroft-Gault) 71.9 BUN/Creatinine Ratio 8 (6-20) Glucose Level 134 mg/dL (70-99) Calcium Level 8.5 mg/dL (8.5-10.1) Total Bilirubin 1.2 mg/dL (0.2-1.0) Aspartate Amino Transf (AST/SGOT) 45 U/L (15-37) Alanine Aminotransferase (ALT/SGPT) 37 U/L (16-63) Alkaline Phosphatase 63 U/L (46-116) Total Protein 7.2 g/dL (6.4-8.2) Albumin 2.8 g/dL (3.4-5.0) Albumin/Globulin Ratio 0.6 (1.0-1.7) Laboratory Tests Test 07/12/20 15:00 07/12/20 20:06 07/13/20 04:40 SARS-CoV-2 Antigen (Rapid) Negative (NEGATIVE) Glucose (Fingerstick) 175 mg/dL (70-99) White Blood Count 11.1 x10^3/uL (4.0-11.0) Red Blood Count 4.25 x10^6/uL (4.30-5.70) Hemoglobin 13.7 g/dL (13.0-17.5) Hematocrit 39.9 % (39.0-53.0) Mean Corpuscular Volume 94 fL (79-100) Mean Corpuscular Hemoglobin 32 pg (25-35) Mean Corpuscular Hemoglobin Concent 34 g/dL (31-37) Red Cell Distribution Width 14.5 % (11.5-14.5) Platelet Count 161 x10^3/uL (140-400) Neutrophils (%) (Auto) 81 % (31-73) Lymphocytes (%) (Auto) 10 % (24-48) Monocytes (%) (Auto) 9 % (0-9) Eosinophils (%) (Auto) 0 % (0-3) Basophils (%) (Auto) 0 % (0-3) Neutrophils # (Auto) 8.9 x10^3/uL (1.8-7.7) Lymphocytes # (Auto) 1.1 x10^3/uL (1.0-4.8) Monocytes # (Auto) 1.0 x10^3/uL (0.0-1.1) Eosinophils # (Auto) 0.0 x10^3/uL (0.0-0.7) Basophils # (Auto) 0.0 x10^3/uL (0.0-0.2) Sodium Level 141 mmol/L (136-145) Potassium Level 3.6 mmol/L (3.5-5.1) Chloride Level 106 mmol/L (98-107) Carbon Dioxide Level 26 mmol/L (21-32) Anion Gap 9 (6-14) Blood Urea Nitrogen 8 mg/dL (8-26) Creatinine 1.0 mg/dL (0.7-1.3) Estimated GFR (Cockcroft-Gault) 71.9 BUN/Creatinine Ratio 8 (6-20) Glucose Level 134 mg/dL (70-99) Calcium Level 8.5 mg/dL (8.5-10.1) Total Bilirubin 1.2 mg/dL (0.2-1.0) Aspartate Amino Transf (AST/SGOT) 45 U/L (15-37) Alanine Aminotransferase (ALT/SGPT) 37 U/L (16-63) Alkaline Phosphatase 63 U/L (46-116) Total Protein 7.2 g/dL (6.4-8.2) Albumin 2.8 g/dL (3.4-5.0) Albumin/Globulin Ratio 0.6 (1.0-1.7) Medications Current Medications Sodium Chloride 1,000 ml @ 1,000 mls/hr 1X ONCE IV Last administered on 07/12/20at 08:08; Start 07/12/20 at 07:30; Stop 07/12/20 at 08:29; Status DC Ondansetron HCl (Zofran) 4 mg 1X ONCE IV Last administered on 07/12/20at 08:08; Start 07/12/20 at 07:30; Stop 07/12/20 at 07:31; Status DC Ondansetron HCl (Zofran) 4 mg PRN Q8HRS PRN IV NAUSEA/VOMITING; Start 07/12/20 at 09:15; Stop 07/13/20 at 09:14; Status DC Fentanyl Citrate (Fentanyl 2ml Vial) 25 mcg PRN Q1HR PRN IV PAIN; Start 07/12/20 at 09:15; Stop 07/13/20 at 09:14; Status DC Sodium Chloride 1,000 ml @ 125 mls/hr Q8H IV ; Start 07/12/20 at 09:15; Stop 07/12/20 at 10:15; Status DC Potassium Chloride 20 meq/ Dextrose/Sodium Chloride 1,010 ml @ 100 mls/hr Q10H6M IV ; Start 07/12/20 at 10:15; Stop 07/12/20 at 10:24; Status DC Pantoprazole Sodium (PROTONIX VIAL for IV PUSH) 40 mg DAILY07 IVP Last administered on 07/13/20at 08:33; Start 07/13/20 at 07:00; Stop 07/13/20 at 10:24; Status DC Piperacillin Sod/ Tazobactam Sod (Zosyn Per Pharmacy) 1 each PRN DAILY PRN MC SEE COMMENTS; Start 07/12/20 at 12:15 Metoprolol Tartrate (Lopressor Vial) 5 mg PRN Q6HRS PRN IVP SBP > 160; Start 07/12/20 at 10:15 Piperacillin Sod/ Tazobactam Sod 3.375 gm/Sodium Chloride 50 ml @ 100 mls/hr ONCE ONCE IV Last administered on 07/12/20at 11:08; Start 07/12/20 at 10:30; Stop 07/12/20 at 10:59; Status DC Potassium Chloride/Dextrose/ Sod Cl 1,000 ml @ 100 mls/hr Q10H IV Last administered on 07/13/20at 00:04; Start 07/12/20 at 10:30 Piperacillin Sod/ Tazobactam Sod 3.375 gm/Sodium Chloride 50 ml @ 100 mls/hr Q6HRS IV Last administered on 07/13/20at 12:19; Start 07/12/20 at 18:00 Fentanyl Citrate (Fentanyl 2ml Vial) 25 mcg PRN Q5MIN PRN IV MILD PAIN 1-3; Start 07/12/20 at 16:15; Stop 07/13/20 at 16:14 Fentanyl Citrate (Fentanyl 2ml Vial) 50 mcg PRN Q5MIN PRN IV MODERATE TO SEVERE PAIN; Start 07/12/20 at 16:15; Stop 07/13/20 at 16:14 Morphine Sulfate (Morphine Sulfate) 1 mg PRN Q10MIN PRN IV SEVERE PAIN 7-10; Start 07/12/20 at 16:15; Stop 07/13/20 at 16:14 Ringer's Solution 1,000 ml @ 30 mls/hr Q24H IV Last administered on 07/12/20at 20:28; Start 07/12/20 at 16:08; Stop 07/13/20 at 04:07; Status DC Hydromorphone HCl (Dilaudid) 0.5 mg PRN Q10MIN PRN IV SEV PAIN, Second choice; Start 07/12/20 at 16:15; Stop 07/13/20 at 16:14 Prochlorperazine Edisylate (Compazine) 5 mg PACU PRN PRN IV NAUSEA, MRX1; Start 07/12/20 at 16:15; Stop 07/13/20 at 16:14 Etomidate (Amidate) 20 mg STK-MED ONCE IV ; Start 07/12/20 at 18:01; Stop 07/12/20 at 18:02; Status DC Lidocaine HCl (Lidocaine Pf 2% Vial) 5 ml STK-MED ONCE .ROUTE ; Start 07/12/20 at 18:02; Stop 07/12/20 at 18:03; Status DC Phenylephrine HCl (PHENYLEPHRINE in 0.9% NACL PF) 1 mg STK-MED ONCE IV ; Start 07/12/20 at 18:03; Stop 07/12/20 at 18:03; Status DC Rocuronium [place] (Zemuron) 50 mg STK-MED ONCE .ROUTE ; Start 07/12/20 at 18:03; Stop 07/12/20 at 18:03; Status DC Fentanyl Citrate (Fentanyl 2ml Vial) 100 mcg STK-MED ONCE .ROUTE ; Start 07/12/20 at 18:03; Stop 07/12/20 at 18:03; Status DC Iohexol (Omnipaque 300 Mg/ml) 50 ml STK-MED ONCE .ROUTE Last administered on 07/12/20at 18:51; Start 07/12/20 at 18:04; Stop 07/12/20 at 18:04; Status DC Cellulose (Surgicel Hemostat 4x8) 1 each STK-MED ONCE .ROUTE Last administered on 07/12/20at 19:24; Start 07/12/20 at 18:04; Stop 07/12/20 at 18:04; Status DC Bupivacaine HCl (Sensorcaine Mpf 0.5%) 30 ml STK-MED ONCE .ROUTE Last administered on 07/12/20at 18:51; Start 07/12/20 at 18:04; Stop 07/12/20 at 18:04; Status DC Ondansetron HCl (Zofran) 4 mg STK-MED ONCE .ROUTE ; Start 07/12/20 at 18:32; Stop 07/12/20 at 18:32; Status DC Dexamethasone Sodium Phosphate (Decadron) 4 mg STK-MED ONCE .ROUTE ; Start 07/12/20 at 18:32; Stop 07/12/20 at 18:32; Status DC Neostigmine [place] (Neostigmine Methylsulfate) 5 mg STK-MED ONCE .ROUTE ; Start 07/12/20 at 18:57; Stop 07/12/20 at 18:58; Status DC Glycopyrrolate (Robinul) 1 mg STK-MED ONCE .ROUTE ; Start 07/12/20 at 19:00; Stop 07/12/20 at 19:01; Status DC Fentanyl Citrate (Fentanyl 2ml Vial) 100 mcg STK-MED ONCE .ROUTE ; Start 07/12/20 at 19:22; Stop 07/12/20 at 19:22; Status DC Cellulose (Surgicel Hemostat 4x8) 1 each STK-MED ONCE .ROUTE Last administered on 07/12/20at 19:36; Start 07/12/20 at 19:35; Stop 07/12/20 at 19:35; Status DC Sevoflurane (Ultane) 60 ml STK-MED ONCE IH ; Start 07/12/20 at 19:54; Stop 07/12/20 at 19:54; Status DC Acetaminophen/ Hydrocodone Bitart (Lortab 5/325) 1 tab PRN Q4HRS PRN PO MODERATE PAIN Last administered on 07/13/20at 06:35; Start 07/12/20 at 20:00 Acetaminophen/ Hydrocodone Bitart (Lortab 5/325) 2 tab PRN Q4HRS PRN PO SEVERE PAIN Last administered on 07/13/20at 12:27; Start 07/12/20 at 20:15 Levothyroxine Sodium (Synthroid) 100 mcg DAILY06 PO Last administered on 07/13/20at 12:18; Start 07/13/20 at 10:30 Metoprolol Succinate (Toprol Xl) 12.5 mg DAILY PO Last administered on 07/13/20at 12:18; Start 07/13/20 at 11:00 Pantoprazole Sodium (Protonix) 40 mg DAILYAC PO ; Start 07/13/20 at 11:30 Active Scripts Active Aspirin Ec (Aspirin) 81 Mg Tablet. 81 Mg PO [id number] 30 Days Reported Clopidogrel (Clopidogrel Bisulfate) 75 Mg Tablet 75 Mg PO DAILY Omeprazole 20 Mg Capsule. 20 Mg PO DAILY Levothyroxine Sodium 100 Mcg Tablet 100 Mcg PO DAILY Lisinopril 5 Mg Tablet 5 Mg PO DAILY Metoprolol Succinate ( Xl ) (Metoprolol Succinate) 25 Mg Tab.er.24h 0.5 Tab PO DAILY Vitals/I & O Vital Sign - Last 24 Hours 07/12/20 07/12/20 07/12/20 07/12/20 14:00 15:44 20:01 20:01 Temp 98.6 98.7 98.6 98.7 Pulse 60 83 Resp 15 20 B/P (MAP) 139/69 183/82 Pulse Ox 96 99 O2 Delivery Room Air Simple Mask Mask O2 Flow Rate 10 10 07/12/20 07/12/20 07/12/20 07/12/20 20:16 20:40 20:45 21:00 Temp 98.1 98.1 Pulse 81 77 72 Resp 20 21 20 B/P (MAP) 161/63 140/62 (88) 136/55 (82) Pulse Ox 98 91 92 O2 Delivery Simple Mask Room Air Room Air Room Air O2 Flow Rate 10 07/12/20 07/12/20 07/12/20 07/12/20 21:15 21:30 22:00 22:30 Pulse 64 64 65 65 Resp 20 21 B/P (MAP) 136/55 (82) 130/57 (81) 121/57 (78) 123/56 (78) Pulse Ox 91 92 92 93 O2 Delivery Room Air Room Air Room Air Room Air 07/12/20 07/12/20 07/13/20 07/13/20 23:00 23:30 00:30 06:35 Temp 98.3 98.3 Pulse 61 74 60 Resp 20 22 20 B/P (MAP) 117/54 (75) 123/61 (81) 112/56 (74) Pulse Ox 93 94 96 O2 Delivery Room Air Room Air Room Air Room Air 07/13/20 07/13/20 07/13/20 07/13/20 07:00 08:00 08:33 10:43 Temp 97.8 97.9 97.8 97.9 Pulse 66 66 Resp 17 17 B/P (MAP) 115/51 (72) 114/72 (86) Pulse Ox 94 94 O2 Delivery Room Air Room Air Room Air Room Air 07/13/20 07/13/20 07/13/20 12:18 12:27 13:51 Pulse 66 B/P (MAP) 114/72 O2 Delivery Room Air Room Air Intake and Output0 07/12/20 07/12/20 07/13/20 15:00 23:00 07:00 Intake Total 1000 ml 1050 ml 1000 ml Output Total 255 ml 0 ml Balance 1000 ml 795 ml 1000 ml Justicifation of Admission Dx: Justifications for Admission: Justification of Admission Dx: Yes MANOHAR COKER MD Jul 13, 2020 13:59
[2020-07-13 15:00] VITALS: BP 108/64
[2020-07-13 19:00] VITALS: BP 107/49
[2020-07-13] MEDS: LACTOBACILLUS RHAMNOSUS GG 1 CAPSULE. PO SCH (21:18)
[2020-07-13] MEDS: guaiFENesin DM 200MG/20MG 10 ML SYRUP PO PRN (21:55)
[2020-07-13 23:00] VITALS: BP 91/50
[2020-07-14] MEDS: PIPERACILLIN/TAZOBACTAM 3.375 GM in IV NORMAL SALINE 50ML 50 ML IV SCH ×4 (00:04→18:18)
[2020-07-14 03:00] VITALS: BP 94/55
[2020-07-14] MEDS: POTASSIUM CL 20MEQ D5-0.45NACL 1,000 ML IV SCH ×2 (03:06→22:30)
[2020-07-14] MEDS: guaiFENesin DM 200MG/20MG 10 ML SYRUP PO PRN ×3 (04:17→21:33)
[2020-07-14] MEDS: HYDROcodone/APAP 5/325MG 1 TAB TABLET PO PRN ×2 (04:30→21:34)
[2020-07-14] MEDS: LEVOTHYROXINE 100 MCG TABLET PO SCH (06:11)
[2020-07-14] MEDS: PANTOPRAZOLE 40 MG TABLET.DR. PO SCH (06:11)
[2020-07-14 07:15] VITALS: BP 92/53
[2020-07-14 08:15] LABS: ALBUMIN 2.4 g/dL (3.4-5.0); ALBUMIN/GLOBULIN RATIO 0.6 (1.0-1.7); CALCIUM 7.9 mg/dL (8.5-10.1); GFR 71.9; POTASSIUM 3.7 mmol/L (3.5-5.1); TOTAL BILIRUBIN 0.7 mg/dL (0.2-1.0); TOTAL PROTEIN 6.3 g/dL (6.4-8.2)
--- NOTE | 2020-07-14 09:40 | PDOC ---
SURGICAL PROGRESS NOTE DATE: 07/14/20 TIME: 09:38 Subjective some pain at drain site no nausea Vital Signs Vital Signs Date Time Temp Pulse Resp B/P (MAP) Pulse Ox O2 Delivery O2 Flow Rate FiO2 07/14/20 07:15 98.1 57 18 92/53 (66) 95 Room Air 98.1 I&O l Intake and Output 07/14/20 07:00 Intake Total 840 ml Output Total 540 ml Balance 300 ml Intake Oral 840 ml Output Urine Total 490 ml Drainage Total 50 ml # Voids 2 # Bowel Movements 1 General: Cooperative, No acute distress Abdomen: Soft, Other (lap dressings dry, stephen serosang ) Labs Laboratory Tests Test 07/12/20 10:09 07/12/20 15:00 07/12/20 20:06 07/13/20 04:40 Urine Collection Type Unknown Urine Color Shelley Urine Clarity Clear Urine pH 5.5 (<5.0-8.0) Urine Specific [place] 1.025 (1.000-1.030) Urine Protein Negative mg/dL (NEG-TRACE) Urine Glucose (UA) Negative mg/dL (NEG) Urine Ketones (Stick) Negative mg/dL (NEG) Urine Blood Negative (NEG) Urine Nitrite Negative (NEG) Urine Bilirubin Negative (NEG) Urine Urobilinogen Dipstick 1.0 mg/dL (0.2 mg/dL) Urine Leukocyte Esterase Negative (NEG) Urine RBC Occ /HPF (0-2) Urine WBC 1-4 /HPF (0-4) Urine Bacteria Few /HPF (0-FEW) Urine Mucus Marked /LPF Coronavirus (PCR) Not detected (Not Detected) SARS-CoV-2 Antigen (Rapid) Negative (NEGATIVE) Glucose (Fingerstick) 175 mg/dL (70-99) White Blood Count 11.1 x10^3/uL (4.0-11.0) Red Blood Count 4.25 x10^6/uL (4.30-5.70) Hemoglobin 13.7 g/dL (13.0-17.5) Hematocrit 39.9 % (39.0-53.0) Mean Corpuscular Volume 94 fL (79-100) Mean Corpuscular Hemoglobin 32 pg (25-35) Mean Corpuscular Hemoglobin Concent 34 g/dL (31-37) Red Cell Distribution Width 14.5 % (11.5-14.5) Platelet Count 161 x10^3/uL (140-400) Neutrophils (%) (Auto) 81 % (31-73) Lymphocytes (%) (Auto) 10 % (24-48) Monocytes (%) (Auto) 9 % (0-9) Eosinophils (%) (Auto) 0 % (0-3) Basophils (%) (Auto) 0 % (0-3) Neutrophils # (Auto) 8.9 x10^3/uL (1.8-7.7) Lymphocytes # (Auto) 1.1 x10^3/uL (1.0-4.8) Monocytes # (Auto) 1.0 x10^3/uL (0.0-1.1) Eosinophils # (Auto) 0.0 x10^3/uL (0.0-0.7) Basophils # (Auto) 0.0 x10^3/uL (0.0-0.2) Sodium Level 141 mmol/L (136-145) Potassium Level 3.6 mmol/L (3.5-5.1) Chloride Level 106 mmol/L (98-107) Carbon Dioxide Level 26 mmol/L (21-32) Anion Gap 9 (6-14) Blood Urea Nitrogen 8 mg/dL (8-26) Creatinine 1.0 mg/dL (0.7-1.3) Estimated GFR (Cockcroft-Gault) 71.9 BUN/Creatinine Ratio 8 (6-20) Glucose Level 134 mg/dL (70-99) Calcium Level 8.5 mg/dL (8.5-10.1) Total Bilirubin 1.2 mg/dL (0.2-1.0) Aspartate Amino Transf (AST/SGOT) 45 U/L (15-37) Alanine Aminotransferase (ALT/SGPT) 37 U/L (16-63) Alkaline Phosphatase 63 U/L (46-116) Total Protein 7.2 g/dL (6.4-8.2) Albumin 2.8 g/dL (3.4-5.0) Albumin/Globulin Ratio 0.6 (1.0-1.7) Test 07/14/20 06:40 Sodium Level 139 mmol/L (136-145) Potassium Level 3.7 mmol/L (3.5-5.1) Chloride Level 105 mmol/L (98-107) Carbon Dioxide Level 29 mmol/L (21-32) Anion Gap 5 (6-14) Blood Urea Nitrogen 7 mg/dL (8-26) Creatinine 1.0 mg/dL (0.7-1.3) Estimated GFR (Cockcroft-Gault) 71.9 BUN/Creatinine Ratio 7 (6-20) Glucose Level 80 mg/dL (70-99) Calcium Level 7.9 mg/dL (8.5-10.1) Total Bilirubin 0.7 mg/dL (0.2-1.0) Aspartate Amino Transf (AST/SGOT) 21 U/L (15-37) Alanine Aminotransferase (ALT/SGPT) 25 U/L (16-63) Alkaline Phosphatase 55 U/L (46-116) Total Protein 6.3 g/dL (6.4-8.2) Albumin 2.4 g/dL (3.4-5.0) Albumin/Globulin Ratio 0.6 (1.0-1.7) Laboratory Tests Test 07/14/20 06:40 Sodium Level 139 mmol/L (136-145) Potassium Level 3.7 mmol/L (3.5-5.1) Chloride Level 105 mmol/L (98-107) Carbon Dioxide Level 29 mmol/L (21-32) Anion Gap 5 (6-14) Blood Urea Nitrogen 7 mg/dL (8-26) Creatinine 1.0 mg/dL (0.7-1.3) Estimated GFR (Cockcroft-Gault) 71.9 BUN/Creatinine Ratio 7 (6-20) Glucose Level 80 mg/dL (70-99) Calcium Level 7.9 mg/dL (8.5-10.1) Total Bilirubin 0.7 mg/dL (0.2-1.0) Aspartate Amino Transf (AST/SGOT) 21 U/L (15-37) Alanine Aminotransferase (ALT/SGPT) 25 U/L (16-63) Alkaline Phosphatase 55 U/L (46-116) Total Protein 6.3 g/dL (6.4-8.2) Albumin 2.4 g/dL (3.4-5.0) Albumin/Globulin Ratio 0.6 (1.0-1.7) Problem List Problems Medical Problems: (1) Acute cholecystitis Status: Acute Assessment/Plan s/p mel, gangrenous--continue drain, abx Justicifation of Admission Dx: Justifications for Admission: Justification of Admission Dx: Yes ERIC PRABHAKAR TREE TRIMMING SUPERVISOR Jul 14, 2020 09:40
[2020-07-14 10:24] LABS: BASO % 1 % (0-3); EOS # 0.4 x10^3/uL (0.0-0.7); EOS % 5 % (0-3); HEMATOCRIT 31.9 % (39.0-53.0); HEMOGLOBIN 11.1 g/dL (13.0-17.5); LYMPH # 2.2 x10^3/uL (1.0-4.8); LYMPH % 28 % (24-48); MEAN CORPUSCULAR HEMOGLOBIN 33 pg (25-35); MEAN CORPUSCULAR HGB CONC 35 g/dL (31-37); MEAN CORPUSCULAR VOLUME 93 fL (79-100); MONO # 0.8 x10^3/uL (0.0-1.1); MONO % 11 % (0-9); NEUT # 4.4 x10^3/uL (1.8-7.7); NEUT % 56 % (31-73); PLATELET COUNT 147 x10^3/uL (140-400); RED BLOOD COUNT 3.41 x10^6/uL (4.30-5.70); RED CELL DISTRIBUTION WIDTH 14.4 % (11.5-14.5); WHITE BLOOD COUNT 7.8 x10^3/uL (4.0-11.0)
--- NOTE | 2020-07-14 10:48 | PDOC ---
IM PROGRESS NOTES- Subjective Subjective Has abdominal pain Objective Vitals/I&O Vital Signs Date Time Temp Pulse Resp B/P (MAP) Pulse Ox O2 Delivery O2 Flow Rate FiO2 07/14/20 07:15 98.1 57 18 92/53 (66) 95 Room Air 98.1 I & O 07/13/20 07/13/20 07/14/20 15:00 23:00 07:00 Intake Total 540 ml 300 ml Output Total 140 ml 400 ml Balance 400 ml 300 ml -400 ml Physical Exam Physical Exam General appearance - alert,well appearing, and in no distress and oriented to person, place, and time Mental Status - alert, oriented to person, place, and time, affect appropriate to mood Head - normal Chest -decreased breath sounds at bases Heart - S1 and S2 normal Abdomen - soft, status post surgery Neurological - alert and oriented, has chronic cognitive deficits Extremities - no pedal edema Skin - warm and dry Labs Laboratory Tests Test 07/14/20 06:40 07/14/20 10:09 Sodium Level 139 mmol/L (136-145) Potassium Level 3.7 mmol/L (3.5-5.1) Chloride Level 105 mmol/L (98-107) Carbon Dioxide Level 29 mmol/L (21-32) Anion Gap 5 (6-14) L Blood Urea Nitrogen 7 mg/dL (8-26) L Creatinine 1.0 mg/dL (0.7-1.3) Estimated GFR (Cockcroft-Gault) 71.9 BUN/Creatinine Ratio 7 (6-20) Glucose Level 80 mg/dL (70-99) Calcium Level 7.9 mg/dL (8.5-10.1) L Total Bilirubin 0.7 mg/dL (0.2-1.0) Aspartate Amino Transferase (AST) 21 U/L (15-37) Alanine Aminotransferase (ALT) 25 U/L (16-63) Alkaline Phosphatase 55 U/L (46-116) Total Protein 6.3 g/dL (6.4-8.2) L Albumin 2.4 g/dL (3.4-5.0) L Albumin/Globulin Ratio 0.6 (1.0-1.7) L White Blood Count 7.8 x10^3/uL (4.0-11.0) Red Blood Count 3.41 x10^6/uL (4.30-5.70) L Hemoglobin 11.1 g/dL (13.0-17.5) L Hematocrit 31.9 % (39.0-53.0) L Mean Corpuscular Volume 93 fL (79-100) Mean Corpuscular Hemoglobin 33 pg (25-35) Mean Corpuscular Hemoglobin Concent 35 g/dL (31-37) Red Cell Distribution Width 14.4 % (11.5-14.5) Platelet Count 147 x10^3/uL (140-400) Neutrophils (%) (Auto) 56 % (31-73) Lymphocytes (%) (Auto) 28 % (24-48) Monocytes (%) (Auto) 11 % (0-9) H Eosinophils (%) (Auto) 5 % (0-3) H Basophils (%) (Auto) 1 % (0-3) Neutrophils # (Auto) 4.4 x10^3/uL (1.8-7.7) Lymphocytes # (Auto) 2.2 x10^3/uL (1.0-4.8) Monocytes # (Auto) 0.8 x10^3/uL (0.0-1.1) Eosinophils # (Auto) 0.4 x10^3/uL (0.0-0.7) Basophils # (Auto) 0.0 x10^3/uL (0.0-0.2) Laboratory Tests 07/14/20 10:09 Laboratory Tests 07/14/20 06:40 Meds Current Medications Medications (Trade) Dose Ordered Sig/Manny Route PRN Reason Start Time Stop Time Status Last Admin Dose Admin Metoprolol Succinate (Toprol Xl) 12.5 mg DAILY PO 07/13/20 11:00 07/13/20 12:18 Pantoprazole Sodium (Protonix) 40 mg DAILYAC PO 07/13/20 11:30 07/14/20 06:11 Lactobacillus Rhamnosus (Culturelle) 1 cap BID PO 07/13/20 21:00 07/13/20 21:18 Guaifenesin (Robitussin Dm) 5 ml PRN Q6HRS PRN PO COUGH 07/13/20 21:45 07/14/20 04:17 Assessment Assessment 1. Acute cholecystitis. 2. Hypertension, not controlled. 3. Gastroesophageal reflux disease. 4. History of atrial fibrillation with bradycardia. 5. 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 6. Left inguinal hernia. 7. Acquired hypothyroidism. 8. History of schizophrenia 9. History of noncompliance. 10. History of paroxysmal atrial fibrillation, not a candidate for anticoagulation. PLAN: I will consult Surgery for evaluation of the acute cholecystitis. Start IV Zosyn. Change IV fluids and add potassium to it because potassium is 3.5, give IV Lopressor p.r.n. for high blood pressure. Monitor for arrhythmia. Follow up EKG and chest x-ray. We will not start on DVT prophylaxis because of possible surgery. Keep the patient n.p.o. For details, please refer to the orders. Acute cholecystitis-his gangrenous cholecystitis. Had laparoscopic cholecystectomy by Dr. Valadez on July 12, 2020. BP is low. Continue IV Zosyn and IV fluids. will need SNF on discharge. Severe malnutrition Plan Plan For more details regarding further plans, please refer to the orders. Justicifation of Admission Dx: Justifications for Admission: Justification of Admission Dx: Yes ANUM CESPEDES MD Jul 14, 2020 10:48
[2020-07-14 11:15] VITALS: BP 111/62
[2020-07-14] MEDS: METOPROLOL SUCC 24HR ER 25 MG TAB.ER.24H. PO SCH (11:42)
[2020-07-14] MEDS: LACTOBACILLUS RHAMNOSUS GG 1 CAPSULE. PO SCH ×2 (11:42→21:34)
--- NOTE | 2020-07-14 11:52 | NUR ---
SW following. Discussed with RN, PT/OT recommending SNU. TAMELA met with pt (no isolation precautions at the time), pt agreeable to SNU, and agreeable to referral being sent to [facility] as he has been there in the past. TAMELA faxed referral to [facility], awaiting acceptance and insurance auth. COVID-19 negative. Choice of vendor form completed. RN notified. TAMELA will continue to follow.
--- NOTE | 2020-07-14 14:07 | PATHOLOGY ---
[facility] Accession Number: [id number] . 01 Material submitted: . gallbladder - GALLBLADDER AND CONTENTS . 01 Clinical history: . ACUTE CHOLECYSTITIS . 02 Diagnosis: Gallbladder and attached superficial portion of liver tissue, laparoscopic cholecystectomy: - Cholelithiasis. - Acute necrotizing (gangrenous) and chronic cholecystitis with focally increased eosinophils. (JPM:psychiatric nurse practitioner; 07/14/2020) MBR 07/14/2020 1215 Local . 02 Comment: There is no evidence of malignancy. (JPM:psychiatric nurse practitioner; 07/14/2020) . 02 Electronically signed: . Massimo Meza MD, Pathologist NPI- [id number] . 01 Gross description: . The specimen is received in a sealed laparoscopic bag in formalin, labeled "[place], gallbladder and contents". Received is an intact gallbladder measuring 7.7 x 3.9 x 2.6 cm in greatest dimensions displaying a dusky pink-taylor to pink-tobar serosal surface. Opening the specimen reveals a tobar-green to red-brown, shaggy mucosa with a gallbladder wall thickness of up to 0.2 cm. Calculi are present displaying a bright yellow and nodular appearance, and no masses or lesions are noted grossly. Pyroglazer sections, to include the proximal margin, are submitted in cassette A1 (CAA; 07/13/2020) QAC/QAC 07/14/2020 1213 Local . 02 Pathologist provided ICD-10: K80.12 . 02 CPT . 683128 Specimen Comment: A courtesy copy of this report has been sent to [phone] Specimen Comment: [id number] Specimen Comment: Report sent to / DR CESPEDES Performed at: 01 [facility] [place] [address], [place], [place] [id number] MD Vishnu Stein MD Phone: [phone] Performed at: 02 [facility] [address] [place], [place] [id number] MD Massimo Meza MD Phone: [phone]
[2020-07-14 15:15] VITALS: BP 110/60
[2020-07-14 19:00] VITALS: BP 140/73
[2020-07-14 23:00] VITALS: BP 160/67
[2020-07-15] MEDS: PIPERACILLIN/TAZOBACTAM 3.375 GM in IV NORMAL SALINE 50ML 50 ML IV SCH ×4 (00:31→20:49)
[2020-07-15] MEDS: POTASSIUM CL 20MEQ D5-0.45NACL 1,000 ML IV SCH (00:33)
[2020-07-15 03:00] VITALS: BP 130/65
[2020-07-15] MEDS: guaiFENesin DM 200MG/20MG 10 ML SYRUP PO PRN ×2 (03:25→09:07)
[2020-07-15] MEDS: HYDROcodone/APAP 5/325MG 1 TAB TABLET PO PRN (03:33)
[2020-07-15] MEDS: PANTOPRAZOLE 40 MG TABLET.DR. PO SCH (06:41)
[2020-07-15] MEDS: LEVOTHYROXINE 100 MCG TABLET PO SCH (06:41)
[2020-07-15 07:00] VITALS: BP 122/66
[2020-07-15] MEDS: METOPROLOL SUCC 24HR ER 25 MG TAB.ER.24H. PO SCH (09:00)
[2020-07-15] MEDS: LACTOBACILLUS RHAMNOSUS GG 1 CAPSULE. PO SCH ×2 (09:06→20:48)
[2020-07-15] MEDS ORDERED: LACT1CAP19 PO (09:54)
[2020-07-15] MEDS ORDERED: AMOX1TAB61 PO (09:54)
--- NOTE | 2020-07-15 09:55 | SNU/HH DC ---
DISCHARGE ORDERS DISCHARGE INFORMATION: FINAL DIAGNOSIS Problems Medical Problems: (1) Acute cholecystitis Status: Acute CONDITION ON DISCHARGE: Stable NURSING HOME: SNF STAY <30 DAYS: Yes (With walker) POST DISCHARGE ORDERS: ACTIVITY ORDERS: Activity as tolerated WEIGHT BEARING STATUS: Full weight bearing, As tolerated DIET AFTER DISCHARGE: Cardiac WOUND/INCISION CARE: Change dressing OTHER ORDERS: Fall precautions CHECKS AFTER DISCHARGE: CHECKS AFTER DISCHARGE: Check blood press - daily FOLLOW-UP: PHYSICIAN FOLLOW-UP: Follow by [facility] physician. ADDITIONAL FOLLOW-UP: See me in the office within 1 week after discharge from the [facility]. LAB ORDERS FOR FOLLOW-UP: CBC,CMP TREATMENT/EQUIPMENT ORDERS: ADAPTIVE EQUIPMENT NEEDED: None Physical Therapy For: Evalulation/Treatment Occupational Therapy For: Evaluation/Treatment DISCHARGE MEDICATIONS: Home Meds Active Scripts Lactobacillus Rhamnosus Gg (CULTURELLE) 1 Each Cap.sprink, 1 CAP PO BID for antibiotic use for 14 Days, #28 CAP Prov:ANUM CESPEDES MD 07/15/20 Aspirin (ASPIRIN EC) 81 Mg Tablet., 81 MG PO DAILYWBKFT for CVA for 30 Days, #30 TAB.SR Prov:ANUM CESPEDES MD 02/17/20 Reported Medications Clopidogrel Bisulfate (CLOPIDOGREL) 75 Mg Tablet, 75 MG PO DAILY for anticoagulation 02/17/20 Omeprazole (OMEPRAZOLE) 20 Mg Capsule.dr, 20 MG PO DAILY for GERD 02/17/20 Levothyroxine Sodium (LEVOTHYROXINE SODIUM) 100 Mcg Tablet, 100 MCG PO DAILY for hypothyroidism 02/17/20 Metoprolol Succinate (METOPROLOL SUCCINATE ( XL )) 25 Mg Tab.er.24h, 0.5 TAB PO DAILY, #30 TAB 5 Refills 03/28/18 Discontinued Reported Medications Lisinopril (LISINOPRIL) 5 Mg Tablet, 5 MG PO DAILY for HTN 02/17/20 ANUM CESPEDES MD Jul 15, 2020 09:55
--- NOTE | 2020-07-15 10:01 | PDOC3 ---
DISCHARGE SUMMARY Date of Admission Date of Admission Date of Admission: Jul 12, 2020 at 09:14 Date of Discharge Date of Discharge July 19, 2020 Primary Diagnosis Primary Diagnosis 1. Acute cholecystitis. 2. Hypertension, not controlled. 3. Gastroesophageal reflux disease. 4. History of atrial fibrillation with bradycardia. 5. 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 6. Left inguinal hernia. 7. Acquired hypothyroidism. 8. History of schizophrenia 9. History of noncompliance. 10. History of paroxysmal atrial fibrillation, not a candidate for anticoagulation. Consults Consults Dr. San Procedures Procedures Laparoscopic cholecystectomy for gangrenous cholecystitis on July 12, [address] San Labs Labs Laboratory Tests Test 07/14/20 10:09 White Blood Count 7.8 x10^3/uL (4.0-11.0) Red Blood Count 3.41 x10^6/uL (4.30-5.70) L Hemoglobin 11.1 g/dL (13.0-17.5) L Hematocrit 31.9 % (39.0-53.0) L Mean Corpuscular Volume 93 fL (79-100) Mean Corpuscular Hemoglobin 33 pg (25-35) Mean Corpuscular Hemoglobin Concent 35 g/dL (31-37) Red Cell Distribution Width 14.4 % (11.5-14.5) Platelet Count 147 x10^3/uL (140-400) Neutrophils (%) (Auto) 56 % (31-73) Lymphocytes (%) (Auto) 28 % (24-48) Monocytes (%) (Auto) 11 % (0-9) H Eosinophils (%) (Auto) 5 % (0-3) H Basophils (%) (Auto) 1 % (0-3) Neutrophils # (Auto) 4.4 x10^3/uL (1.8-7.7) Lymphocytes # (Auto) 2.2 x10^3/uL (1.0-4.8) Monocytes # (Auto) 0.8 x10^3/uL (0.0-1.1) Eosinophils # (Auto) 0.4 x10^3/uL (0.0-0.7) Basophils # (Auto) 0.0 x10^3/uL (0.0-0.2) Laboratory Tests 07/14/20 10:09 Brief hospital course Brief hospital course This 80-year-old male who has been admitted to this institution several times in the past and who was recently discharged from a [facility] to go home, started having abdominal pain last night after he ate. The patient is a very poor historian, but he denies any vomiting, but admits to nausea. He denies any fever, chills, dysuria. He points to the middle of the abdomen about his pain. He denies any diarrhea. He admits to constipation. Denies any chest pains, dyspnea, dizziness or palpitations. He is again a poor historian. In the Emergency Room, his WBC count was 12.2, hemoglobin 13.8, polys 79. Sodium 139, potassium 3.5, BUN 10, creatinine 0.9, glucose 143, AST 20, ALT 15, albumin 3.3, total protein 7.5, lipase 125. His CT scan of abdomen and pelvis showed gallbladder wall thickening and moderate surrounding inflammation suggestive of acute cholecystitis, mild pelvic free fluid, large left inguinal hernia containing distal descending colon. There is no obstruction. Mildly enlarged prostate, subacute compression fracture of the L1 vertebral body. Because of the acute cholecystitis and abdominal pain, the patient is admitted for further evaluation and management. For more details regarding the past history, family history, social history, surgical history and other details, please refer to History and Physical. Acute cholecystitis-has gangrenous cholecystitis. Had laparoscopic cholecystectomy by Dr. Valadez on July 12, 2020. BP is low. Continue IV Zosyn and IV fluids. Patient was given IV Zosyn and IV fluids. Patient is doing well. Discharge to [facility]. Subsequently Zosyn was discontinued and patient was given Augmentin. Discontinue Augmentin on discharge. Resume Plavix and aspirin. Severe malnutrition. Continue to encourage oral intake Medications Medications reviewed and reconciled for discharge. Allergy Allergies Coded Allergies Type Severity Reaction Last Updated Verified chlorpheniramine Allergy Intermediate 07/03/16 Yes oxymetazoline Allergy Intermediate 07/03/16 Yes pheniramine Allergy Intermediate 07/03/16 Yes phenylephrine Allergy Intermediate 07/03/16 Yes pseudoephedrine Allergy Intermediate 07/03/16 Yes Follow up To see me in the office in 5 days after discharge DISPOSITION: Home health services Comments Discharge Management - 35 minutes. For other details please refer to discharge instructions Justicifation of Admission Dx: Justifications for Admission: Justification of Admission Dx: Yes ANUM CESPEDES MD Jul 15, 2020 10:01
--- NOTE | 2020-07-15 10:01 | NUR ---
TAMELA following. Discussed with RN, pt agreeable to referral to [facility]. TAMELA spoke with Petar at [facility] - they are on an admissions hold due to positive COVID results. [facility] needs two negative tests for their residents before they can take admissions again. Petar advised they wouldn't be able to take pt until next week, after the second round of covid tests. TAMELA queried whether pt could go to another [facility] and then transfer to [facility] location. Petar will check with [facility]. Insurance will need to approve SNU stay, which possibly wouldn't be until Saturday. SW awaiting confirmation of plan for which [facility] pt can go to. TAMELA will continue to follow. Addendum: 07/15/20 at 1601 by FAN RAPP Pt agreeable to discharge to [facility] with transfer to [facility]. Pt accepted at [facility], pending insurance auth. RN notified.
[2020-07-15 11:00] VITALS: BP 128/67
--- NOTE | 2020-07-15 12:42 | PDOC ---
ERIC PRABHAKAR SOLE MOLDER 07/15/20 1242: SURGICAL PROGRESS NOTE DATE: 07/15/20 TIME: 12:40 Subjective up in chair no complaints Vital Signs Vital Signs Date Time Temp Pulse Resp B/P (MAP) Pulse Ox O2 Delivery O2 Flow Rate FiO2 07/15/20 11:00 97.3 62 20 128/67 (87) 96 Room Air 97.3 I&O Intake and Output 07/15/20 07:00 Intake Total 600 ml Output Total 1200 ml Balance -600 ml Intake Oral 600 ml Output Urine Total 1150 ml Drainage Total 50 ml # Voids 3 General: Alert, Oriented X3, Cooperative Abdomen: Soft, Other (drain serosang ) Labs Laboratory Tests Test 07/14/20 06:40 07/14/20 10:09 Sodium Level 139 mmol/L (136-145) Potassium Level 3.7 mmol/L (3.5-5.1) Chloride Level 105 mmol/L (98-107) Carbon Dioxide Level 29 mmol/L (21-32) Anion Gap 5 (6-14) Blood Urea Nitrogen 7 mg/dL (8-26) Creatinine 1.0 mg/dL (0.7-1.3) Estimated GFR (Cockcroft-Gault) 71.9 BUN/Creatinine Ratio 7 (6-20) Glucose Level 80 mg/dL (70-99) Calcium Level 7.9 mg/dL (8.5-10.1) Total Bilirubin 0.7 mg/dL (0.2-1.0) Aspartate Amino Transf (AST/SGOT) 21 U/L (15-37) Alanine Aminotransferase (ALT/SGPT) 25 U/L (16-63) Alkaline Phosphatase 55 U/L (46-116) Total Protein 6.3 g/dL (6.4-8.2) Albumin 2.4 g/dL (3.4-5.0) Albumin/Globulin Ratio 0.6 (1.0-1.7) White Blood Count 7.8 x10^3/uL (4.0-11.0) Red Blood Count 3.41 x10^6/uL (4.30-5.70) Hemoglobin 11.1 g/dL (13.0-17.5) Hematocrit 31.9 % (39.0-53.0) Mean Corpuscular Volume 93 fL (79-100) Mean Corpuscular Hemoglobin 33 pg (25-35) Mean Corpuscular Hemoglobin Concent 35 g/dL (31-37) Red Cell Distribution Width 14.4 % (11.5-14.5) Platelet Count 147 x10^3/uL (140-400) Neutrophils (%) (Auto) 56 % (31-73) Lymphocytes (%) (Auto) 28 % (24-48) Monocytes (%) (Auto) 11 % (0-9) Eosinophils (%) (Auto) 5 % (0-3) Basophils (%) (Auto) 1 % (0-3) Neutrophils # (Auto) 4.4 x10^3/uL (1.8-7.7) Lymphocytes # (Auto) 2.2 x10^3/uL (1.0-4.8) Monocytes # (Auto) 0.8 x10^3/uL (0.0-1.1) Eosinophils # (Auto) 0.4 x10^3/uL (0.0-0.7) Basophils # (Auto) 0.0 x10^3/uL (0.0-0.2) Problem List Problems Medical Problems: (1) Acute cholecystitis Status: Acute Assessment/Plan s/p mel dc planning--pending approval for SNU--can remove drain prior to discharge Justicifation of Admission Dx: Justifications for Admission: Justification of Admission Dx: Yes MANOHAR COKER MD 07/18/20 0831: SURGICAL PROGRESS NOTE Assessment/Plan Agree with above ERIC PRABHAKAR APRN Jul 15, 2020 12:42 MANOHAR COKER MD Jul 18, 2020 08:31
[2020-07-15 15:00] VITALS: BP 112/91
[2020-07-15 19:00] VITALS: BP 141/67
[2020-07-16] MEDS: PIPERACILLIN/TAZOBACTAM 3.375 GM in IV NORMAL SALINE 50ML 50 ML IV SCH ×3 (01:03→11:31)
[2020-07-16 03:00] VITALS: BP 125/59
[2020-07-16] MEDS: guaiFENesin DM 200MG/20MG 10 ML SYRUP PO PRN ×2 (06:12→22:12)
[2020-07-16] MEDS: LEVOTHYROXINE 100 MCG TABLET PO SCH (06:13)
[2020-07-16] MEDS: PANTOPRAZOLE 40 MG TABLET.DR. PO SCH (06:13)
[2020-07-16] MEDS: HYDROcodone/APAP 5/325MG 1 TAB TABLET PO PRN ×2 (06:19→22:13)
[2020-07-16 07:40] VITALS: BP 135/70
[2020-07-16] MEDS: METOPROLOL SUCC 24HR ER 25 MG TAB.ER.24H. PO SCH (09:00)
[2020-07-16] MEDS: LACTOBACILLUS RHAMNOSUS GG 1 CAPSULE. PO SCH ×2 (11:30→20:59)
[2020-07-16 11:44] VITALS: BP 126/69
--- NOTE | 2020-07-16 11:45 | PDOC ---
PROGRESS NOTES Date of Service: DATE: 07/16/20 TIME: 11:43 Subjective Subjective feels better ,had good BM Objective Objective Vital Signs Date Time Temp Pulse Resp B/P (MAP) Pulse Ox O2 Delivery O2 Flow Rate FiO2 07/16/20 09:00 47 135/70 07/16/20 08:00 Room Air 07/16/20 07:40 97.9 16 94 97.9 Intake and Output 07/16/20 07:00 Intake Total 560 ml Output Total 60 ml Balance 500 ml Intake Oral 560 ml Drainage Total 60 ml # Voids 5 # Bowel Movements 1 Physical Exam Abdomen: Soft, Other (drain serosang ) Heart: Regular rate, Normal S1, Normal S2 Extremities: No cyanosis, No edema General: Alert, Oriented X3, Cooperative HEENT: Atraumatic, Mucous membr. moist/pink Lungs: Clear to auscultation, Normal air movement MUSCULOSKELETAL: No deformity, No swelling Neuro: Normal speech, Sensation intact Psych/Mental Status: Mental status NL, Mood NL Skin: No rashes, No breakdown Diagnosis Problem List Problems Medical Problems: (1) Acute cholecystitis Status: Acute Assessment Assessment 1. Acute cholecystitis. 2. Hypertension, not controlled. 3. Gastroesophageal reflux disease. 4. History of atrial fibrillation with bradycardia. 5. 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 6. Left inguinal hernia. 7. Acquired hypothyroidism. 8. History of schizophrenia 9. History of noncompliance. 10. History of paroxysmal atrial fibrillation, not a candidate for anticoagulation. PLAN: POD #4, wbc normal d/c iv zosyn change to po augmentin SNU screen drain will be removed at time of discharge bradycardia hold metoprolol. Plan Plan of Care Problems Medical Problems: (1) Acute cholecystitis Status: Acute Comment Review of Relevant I have reviewed the following items shelly (where applicable) has been applied. Vitals/I & O Vital Sign - Last 24 Hours 07/15/20 07/15/20 07/15/20 07/16/20 15:00 19:00 20:00 03:00 Temp 98.4 98.4 98.8 98.4 98.4 98.8 Pulse 47 59 60 Resp 18 20 20 B/P (MAP) 112/91 (98) 141/67 (91) 125/59 (81) Pulse Ox 96 95 95 O2 Delivery Room Air Room Air 07/16/20 07/16/20 07/16/20 07/16/20 06:19 07:20 07:40 08:00 Temp 97.9 97.9 Pulse 47 Resp 20 16 B/P (MAP) 135/70 (91) Pulse Ox 95 94 O2 Delivery Room Air Room Air Room Air Room Air 07/16/20 09:00 Pulse 47 B/P (MAP) 135/70 Intake and Output 07/15/20 07/15/20 07/16/20 15:00 23:00 07:00 Intake Total 440 ml 120 ml Output Total 60 ml Balance 440 ml 120 ml -60 ml Justicifation of Admission Dx: Justifications for Admission: Justification of Admission Dx: Yes KAUSHIK BETANCOURT MD Jul 16, 2020 11:45
--- NOTE | 2020-07-16 12:36 | PDOC ---
SURGICAL PROGRESS NOTE DATE: 07/16/20 TIME: 12:35 Subjective having lunch no pain Vital Signs Vital Signs Date Time Temp Pulse Resp B/P (MAP) Pulse Ox O2 Delivery O2 Flow Rate FiO2 07/16/20 11:44 98.5 51 16 126/69 (88) 93 Room Air 98.5 I&O Intake and Output 07/16/20 06:59 Intake Total 560 ml Output Total 60 ml Balance 500 ml Intake Oral 560 ml Drainage Total 60 ml # Voids 5 # Bowel Movements 1 General: Alert, Oriented X3, Cooperative Abdomen: Soft, Other (drain serosang) Problem List Problems Medical Problems: (1) Acute cholecystitis Status: Acute Assessment/Plan stable surgically dc planning Justicifation of Admission Dx: Justifications for Admission: Justification of Admission Dx: Yes ERIC PRABHAKAR PRODUCTION SOUND MIXER Jul 16, 2020 12:36
[2020-07-16 15:47] VITALS: BP 133/75
[2020-07-16 19:00] VITALS: BP 159/72
[2020-07-16] MEDS: AMOXICILLIN/K CLAV 875/125MG TABLET. PO SCH (20:59)
[2020-07-16 23:00] VITALS: BP 158/83
[2020-07-17] VITALS (7 sets, daily range): BP systolic 121–146; BP diastolic 56–75
[2020-07-17] MEDS: LEVOTHYROXINE 100 MCG TABLET PO SCH (06:14)
[2020-07-17] MEDS: AMOXICILLIN/K CLAV 875/125MG TABLET. PO SCH ×2 (08:22→21:00)
[2020-07-17] MEDS: PANTOPRAZOLE 40 MG TABLET.DR. PO SCH (08:22)
[2020-07-17] MEDS: LACTOBACILLUS RHAMNOSUS GG 1 CAPSULE. PO SCH ×2 (08:22→21:00)
--- NOTE | 2020-07-17 08:45 | PDOC ---
SURGICAL PROGRESS NOTE DATE: 07/17/20 TIME: 08:44 Subjective headed to bathroom some pain around drain site Vital Signs Vital Signs Date Time Temp Pulse Resp B/P (MAP) Pulse Ox O2 Delivery O2 Flow Rate FiO2 07/17/20 07:27 98.9 50 18 137/64 (88) 94 Room Air 98.9 I&O Intake and Output 07/17/20 07:00 Intake Total 2415 ml Balance 2415 ml Intake Oral 2415 ml # Voids 6 General: Alert, Cooperative, No acute distress Abdomen: Soft, Other (drain serosang) Problem List Problems Medical Problems: (1) Acute cholecystitis Status: Acute Assessment/Plan dc planning stable surgically Justicifation of Admission Dx: Justifications for Admission: Justification of Admission Dx: Yes ERIC PRABHAKAR IT CONSULTANT Jul 17, 2020 08:45
--- NOTE | 2020-07-17 10:19 | PDOC ---
PROGRESS NOTES Date of Service: DATE: 07/17/20 TIME: 10:18 Subjective Subjective no new problems Objective Objective Vital Signs Date Time Temp Pulse Resp B/P (MAP) Pulse Ox O2 Delivery O2 Flow Rate FiO2 07/17/20 08:00 Room Air 07/17/20 07:27 98.9 50 18 137/64 (88) 94 98.9 Intake and Output 07/17/20 07:00 Intake Total 2415 ml Balance 2415 ml Intake Oral 2415 ml # Voids 6 Physical Exam Abdomen: Soft, Other (drain serosang) Heart: Regular rate, Normal S1, Normal S2 Extremities: No cyanosis, No edema General: Alert, Cooperative, No acute distress HEENT: Atraumatic, Mucous membr. moist/pink Lungs: Clear to auscultation, Normal air movement MUSCULOSKELETAL: No deformity, No swelling Neuro: Normal speech, Sensation intact Psych/Mental Status: Mental status NL, Mood NL Skin: No rashes, No breakdown Diagnosis Problem List Problems Medical Problems: (1) Acute cholecystitis Status: Acute Assessment Assessment 1. Acute cholecystitis. 2. Hypertension, not controlled. 3. Gastroesophageal reflux disease. 4. History of atrial fibrillation with bradycardia. 5. 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 6. Left inguinal hernia. 7. Acquired hypothyroidism. 8. History of schizophrenia 9. History of noncompliance. 10. History of paroxysmal atrial fibrillation, not a candidate for anticoagulation. PLAN: POD #5, wbc normal d/c iv zosyn change to po augmentin SNU screen drain will be removed at time of discharge bradycardia ,d/c metoprolol. spoke with RN Plan Plan of Care Problems Medical Problems: (1) Acute cholecystitis Status: Acute Comment Review of Relevant I have reviewed the following items shelly (where applicable) has been applied. Medications Current Medications Amoxicillin/ Clavulanate Potassium (Augmentin 875/ 125mg) 1 tab BID PO Last administered on 07/17/20at 08:22; Start 07/16/20 at 21:00 Vitals/I & O Vital Sign - Last 24 Hours 07/16/20 07/16/20 07/16/20 07/16/20 11:44 15:47 19:00 20:00 Temp 98.5 98.8 99.0 98.5 98.8 99.0 Pulse 51 49 50 Resp 16 16 18 B/P (MAP) 126/69 (88) 133/75 (94) 159/72 (101) Pulse Ox 93 95 97 O2 Delivery Room Air Room Air Room Air Room Air 07/16/20 07/16/20 07/16/20 07/17/20 22:13 23:00 23:16 03:00 Temp 99.1 99.0 99.1 99.0 Pulse 56 62 Resp 18 18 18 18 B/P (MAP) 158/83 (108) 127/70 (89) Pulse Ox 97 96 97 95 O2 Delivery Room Air Room Air Room Air Room Air 07/17/20 07/17/20 07:27 08:00 Temp 98.9 98.9 Pulse 50 Resp 18 B/P (MAP) 137/64 (88) Pulse Ox 94 O2 Delivery Room Air Room Air Intake and Output 07/16/20 07/16/20 07/17/20 15:00 23:00 07:00 Intake Total 925 ml 1320 ml 170 ml Balance 925 ml 1320 ml 170 ml Justicifation of Admission Dx: Justifications for Admission: Justification of Admission Dx: Yes KAUSHIK BETANCOURT MD Jul 17, 2020 10:19
[2020-07-17] MEDS: guaiFENesin DM 200MG/20MG 10 ML SYRUP PO PRN (21:00)
[2020-07-17] MEDS: HYDROcodone/APAP 5/325MG 1 TAB TABLET PO PRN (21:03)
[2020-07-18 03:03] VITALS: BP 127/69
[2020-07-18] MEDS: LEVOTHYROXINE 100 MCG TABLET PO SCH (05:32)
[2020-07-18 07:00] VITALS: BP 133/80
[2020-07-18] MEDS: LACTOBACILLUS RHAMNOSUS GG 1 CAPSULE. PO SCH ×2 (07:43→21:20)
[2020-07-18] MEDS: AMOXICILLIN/K CLAV 875/125MG TABLET. PO SCH ×2 (07:43→21:20)
[2020-07-18] MEDS: PANTOPRAZOLE 40 MG TABLET.DR. PO SCH (07:43)
[2020-07-18] MEDS: guaiFENesin DM 200MG/20MG 10 ML SYRUP PO PRN ×3 (07:49→21:22)
--- NOTE | 2020-07-18 09:23 | PDOC ---
IM PROGRESS NOTES- Subjective Subjective Feeling better. He has mild soreness at the surgical site. Objective Vitals/I&O Vital Signs Date Time Temp Pulse Resp B/P (MAP) Pulse Ox O2 Delivery O2 Flow Rate FiO2 07/18/20 08:00 Room Air 07/18/20 07:00 97.8 56 17 133/80 (97) 94 97.8 I & O 07/17/20 07/17/20 07/18/20 15:00 23:00 07:00 Intake Total 1050 ml Output Total 60 ml 0 ml Balance 1050 ml -60 ml 0 ml Physical Exam Physical Exam General appearance - alert,well appearing, and in no distress Mental Status - alert, has chronic cognitive deficit Head - normal Chest -decreased breath sounds at bases Heart - S1 and S2 normal Abdomen - soft, status post surgery Neurological - alert and oriented, has chronic cognitive deficits Extremities - no pedal edema Skin - warm and dry Assessment Assessment 1. Acute cholecystitis. 2. Hypertension, not controlled. 3. Gastroesophageal reflux disease. 4. History of atrial fibrillation with bradycardia. 5. 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 6. Left inguinal hernia. 7. Acquired hypothyroidism. 8. History of schizophrenia 9. History of noncompliance. 10. History of paroxysmal atrial fibrillation, not a candidate for anticoagulation. PLAN: I will consult Surgery for evaluation of the acute cholecystitis. Start IV Zosyn. Change IV fluids and add potassium to it because potassium is 3.5, give IV Lopressor p.r.n. for high blood pressure. Monitor for arrhythmia. Follow up EKG and chest x-ray. We will not start on DVT prophylaxis because of possible surgery. Keep the patient n.p.o. For details, please refer to the orders. Acute cholecystitis-his gangrenous cholecystitis. Had laparoscopic cholecystectomy by Dr. Valadez on July 12, 2020. Patient is off IV Zosyn and now on p.o. Augmentin. will need SNF on discharge. Severe malnutrition Okay to discharge today if accepted by the [facility] unit. Plan Plan For more details regarding further plans, please refer to the orders. ANUM CESPEDES MD Jul 18, 2020 09:23
--- NOTE | 2020-07-18 10:51 | NUR ---
TAMELA following. Discussed with RN, TAMELA contacted [facility] to determine insurance auth. Awaiting confirmation. TAMELA will continue to follow. Addendum: 07/18/20 at 1310 by FAN RAPP TAMELA spoke with Chelsey at [facility] - Chelsey needed updated therapy notes. TAMELA faxed requested clinicals as well as discharge orders to Chelsey (ph: [phone], fax: [phone]). [facility] Reference #[id number]. Chelsey advised if she receives clinicals within the hour, we can expect an approval decision today. TAMELA will continue to follow.
[2020-07-18 11:00] VITALS: BP 124/60
--- NOTE | 2020-07-18 14:03 | PDOC ---
SURGICAL PROGRESS NOTE DATE: 07/18/20 TIME: 14:02 Subjective up in chair eating Vital Signs Vital Signs Date Time Temp Pulse Resp B/P (MAP) Pulse Ox O2 Delivery O2 Flow Rate FiO2 07/18/20 11:00 97.9 52 14 124/60 (81) 93 Room Air 10.0 97.9 I&O Intake and Output 07/18/20 06:59 Intake Total 1050 ml Output Total 60 ml Balance 990 ml Intake Oral 1050 ml Output Urine Total 0 ml Drainage Total 60 ml # Voids 4 # Bowel Movements 2 General: Alert, Oriented X3, Cooperative Abdomen: Soft, Other (drain serosang) Problem List Problems Medical Problems: (1) Acute cholecystitis Status: Acute Assessment/Plan remove drain dc when medically ready FU in clinic, call with questions Justicifation of Admission Dx: Justifications for Admission: Justification of Admission Dx: Yes ERIC PRABHAKAR APRN Jul 18, 2020 14:03
[2020-07-18 15:00] VITALS: BP 107/83
[2020-07-18 19:00] VITALS: BP 136/67
[2020-07-18] MEDS: HYDROcodone/APAP 5/325MG 1 TAB TABLET PO PRN (21:21)
[2020-07-18 23:00] VITALS: BP 135/65
[2020-07-19 03:00] VITALS: BP 123/58
[2020-07-19 04:42] LABS: BASO # 0.1 x10^3/uL (0.0-0.2); BASO % 1 % (0-3); EOS # 0.3 x10^3/uL (0.0-0.7); EOS % 6 % (0-3); HEMOGLOBIN 12.1 g/dL (13.0-17.5); LYMPH # 2.5 x10^3/uL (1.0-4.8); LYMPH % 48 % (24-48); MEAN CORPUSCULAR HEMOGLOBIN 32 pg (25-35); MEAN CORPUSCULAR HGB CONC 35 g/dL (31-37); MEAN CORPUSCULAR VOLUME 93 fL (79-100); MONO # 0.8 x10^3/uL (0.0-1.1); MONO % 15 % (0-9); NEUT # 1.6 x10^3/uL (1.8-7.7); NEUT % 30 % (31-73); PLATELET COUNT 217 x10^3/uL (140-400); RED BLOOD COUNT 3.74 x10^6/uL (4.30-5.70); RED CELL DISTRIBUTION WIDTH 14.3 % (11.5-14.5); WHITE BLOOD COUNT 5.3 x10^3/uL (4.0-11.0)
[2020-07-19 05:17] LABS: ALBUMIN 2.5 g/dL (3.4-5.0); ALBUMIN/GLOBULIN RATIO 0.6 (1.0-1.7); CALCIUM 7.9 mg/dL (8.5-10.1); CREATININE 1.2 mg/dL (0.7-1.3); GFR 58.3; TOTAL BILIRUBIN 0.3 mg/dL (0.2-1.0); TOTAL PROTEIN 6.5 g/dL (6.4-8.2)
[2020-07-19] MEDS: LEVOTHYROXINE 100 MCG TABLET PO SCH (05:51)
[2020-07-19 07:00] VITALS: BP 154/69
[2020-07-19] MEDS: PANTOPRAZOLE 40 MG TABLET.DR. PO SCH (08:16)
[2020-07-19] MEDS: LACTOBACILLUS RHAMNOSUS GG 1 CAPSULE. PO SCH (08:16)
[2020-07-19] MEDS: AMOXICILLIN/K CLAV 875/125MG TABLET. PO SCH (08:16)
--- NOTE | 2020-07-19 09:22 | PDOC ---
IM PROGRESS NOTES- Subjective Subjective Feeling better. He has mild soreness at the surgical site. Objective Vitals/I&O Vital Signs Date Time Temp Pulse Resp B/P (MAP) Pulse Ox O2 Delivery O2 Flow Rate FiO2 07/19/20 08:20 Room Air 07/19/20 07:00 98.2 64 18 154/69 (97) 98 98.2 07/18/20 11:00 10.0 I & O 07/18/20 07/18/20 07/19/20 15:00 23:00 07:00 Intake Total 240 ml 600 ml 0 ml Output Total 800 ml Balance -560 ml 600 ml 0 ml Physical Exam Physical Exam General appearance - alert,well appearing, and in no distress Mental Status - alert, has chronic cognitive deficit Head - normal Chest -decreased breath sounds at bases Heart - S1 and S2 normal Abdomen - soft, status post surgery Neurological - alert and oriented, has chronic cognitive deficits Extremities - no pedal edema Skin - warm and dry Labs Laboratory Tests Test 07/19/20 04:03 White Blood Count 5.3 x10^3/uL (4.0-11.0) Red Blood Count 3.74 x10^6/uL (4.30-5.70) L Hemoglobin 12.1 g/dL (13.0-17.5) L Hematocrit 35.0 % (39.0-53.0) L Mean Corpuscular Volume 93 fL (79-100) Mean Corpuscular Hemoglobin 32 pg (25-35) Mean Corpuscular Hemoglobin Concent 35 g/dL (31-37) Red Cell Distribution Width 14.3 % (11.5-14.5) Platelet Count 217 x10^3/uL (140-400) Neutrophils (%) (Auto) 30 % (31-73) L Lymphocytes (%) (Auto) 48 % (24-48) Monocytes (%) (Auto) 15 % (0-9) H Eosinophils (%) (Auto) 6 % (0-3) H Basophils (%) (Auto) 1 % (0-3) Neutrophils # (Auto) 1.6 x10^3/uL (1.8-7.7) L Lymphocytes # (Auto) 2.5 x10^3/uL (1.0-4.8) Monocytes # (Auto) 0.8 x10^3/uL (0.0-1.1) Eosinophils # (Auto) 0.3 x10^3/uL (0.0-0.7) Basophils # (Auto) 0.1 x10^3/uL (0.0-0.2) Sodium Level 142 mmol/L (136-145) Potassium Level 4.0 mmol/L (3.5-5.1) Chloride Level 106 mmol/L (98-107) Carbon Dioxide Level 28 mmol/L (21-32) Anion Gap 8 (6-14) Blood Urea Nitrogen 6 mg/dL (8-26) L Creatinine 1.2 mg/dL (0.7-1.3) Estimated GFR (Cockcroft-Gault) 58.3 BUN/Creatinine Ratio 5 (6-20) L Glucose Level 84 mg/dL (70-99) Calcium Level 7.9 mg/dL (8.5-10.1) L Total Bilirubin 0.3 mg/dL (0.2-1.0) Aspartate Amino Transferase (AST) 14 U/L (15-37) L Alanine Aminotransferase (ALT) 14 U/L (16-63) L Alkaline Phosphatase 63 U/L (46-116) Total Protein 6.5 g/dL (6.4-8.2) Albumin 2.5 g/dL (3.4-5.0) L Albumin/Globulin Ratio 0.6 (1.0-1.7) L Laboratory Tests 07/19/20 04:03 Laboratory Tests 07/19/20 04:03 Assessment Assessment 1. Acute cholecystitis. 2. Hypertension, not controlled. 3. Gastroesophageal reflux disease. 4. History of atrial fibrillation with bradycardia. 5. 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 6. Left inguinal hernia. 7. Acquired hypothyroidism. 8. History of schizophrenia 9. History of noncompliance. 10. History of paroxysmal atrial fibrillation, not a candidate for anticoagulation. PLAN: I will consult Surgery for evaluation of the acute cholecystitis. Start IV Zosyn. Change IV fluids and add potassium to it because potassium is 3.5, give IV Lopressor p.r.n. for high blood pressure. Monitor for arrhythmia. Follow up EKG and chest x-ray. We will not start on DVT prophylaxis because of possible surgery. Keep the patient n.p.o. For details, please refer to the orders. Acute cholecystitis-his gangrenous cholecystitis. Had laparoscopic cholecystectomy by Dr. Valadez on July 12, 2020. Patient is off IV Zosyn Augmentin stopped will need SNF on discharge. Severe malnutrition Drain has been removed Okay to discharge today if accepted by the intermediate unit. Plan Plan For more details regarding further plans, please refer to the orders. ANUM CESPEDES MD Jul 19, 2020 09:22
--- NOTE | 2020-07-19 09:39 | SNU/HH DC ---
DISCHARGE WITH HOME HEALTH DISCHARGE INFORMATION: Final Diagnosis: Problems Medical Problems: (1) Acute cholecystitis Status: Acute Condition on Discharge: Stable HOME HEALTH: Face to Face: I certify this patient is under my care and that I, or a nurse practitioner or physician's research program assistant working with me, had a face to face encounter that meets the physician face to face encounter requirements with this patient on July 19, 2020. 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 Pt Meets Homebound Status: Unsteady balance w/ amb, POST DISCHARGE ORDERS: Activity Instructions for Disc: Activity as tolerated (With walker) Weight Bearing Status after Di: Full weight bearing, As tolerated DIET AFTER DISCHARGE: Cardiac Wound/Incision Care: Change dressing DC TO SNF OTHER: Fall precautions CHECKS AFTER DISCHARGE: Checks after discharge: Check blood press - daily FOLLOW-UP: Follow Up With: See me in the office in 5 days TREATMENT/EQUIPMENT ORDERS: Adaptive Equipment Issued: None CERTIFICATION STATEMENT: Certification Statement: Certification Statement: Based on the above finding, I certify that this patient is confined to the home and needs intermittent care home care, physical therapy and/or speech therapy, or continues to need occupational therapy.~ This patient is under my care, and I have initiated the establishment of the plan of care.~ This patient will be followed by myself or a community physician who will periodically review the plan of care. Home Meds Active Scripts Lactobacillus Rhamnosus Gg (CULTURELLE) 1 Each Cap.sprink, 1 CAP PO BID for antibiotic use for 14 Days, #28 CAP Prov:ANUM CESPEDES MD 07/15/20 Aspirin (ASPIRIN EC) 81 Mg Tablet., 81 MG PO DAILYWBKFT for CVA for 30 Days, #30 TAB.SR Prov:ANUM CESPEDES MD 02/17/20 Reported Medications Clopidogrel Bisulfate (CLOPIDOGREL) 75 Mg Tablet, 75 MG PO DAILY for anticoagulation 02/17/20 Omeprazole (OMEPRAZOLE) 20 Mg Capsule., 20 MG PO DAILY for GERD 02/17/20 Levothyroxine Sodium (LEVOTHYROXINE SODIUM) 100 Mcg Tablet, 100 MCG PO DAILY for hypothyroidism 02/17/20 Metoprolol Succinate (METOPROLOL SUCCINATE ( XL )) 25 Mg Tab.er.24h, 0.5 TAB PO DAILY, #30 TAB 5 Refills 03/28/18 Discontinued Reported Medications Lisinopril (LISINOPRIL) 5 Mg Tablet, 5 MG PO DAILY for HTN 02/17/20 ANUM CESPEDES MD Jul 19, 2020 09:39
--- NOTE | 2020-07-19 10:14 | NUR ---
TAMELA following. Discussed with RN, insurance denied SNU, gave peer to peer option. TAMELA spoke with Dr. Light, he does not want to do a peer to peer as he feels pt is doing better, would like to discharge home with home health. TAMELA spoke with Dr. Light's PA who advised they had set pt up with [facility] - pt was supposed to be admitted on 07/06, however was not admitted. TAMELA to meet with pt to discuss home health. BABATUNDE notified. Addendum: 07/19/20 at 1148 by FAN RAPP TAMELA met with pt, pt agreeable to going home with home health. Okay for TAMELA to try [facility] again since he was supposed to be on services with them. TAMELA faxed referral to [facility]. Awaiting acceptance decision, BABATUNDE notified. Addendum: 07/19/20 at 1231 by FAN RAPP Pt accepted with [facility] - pt was current. RN notified. No further SW needs.
[2020-07-19 11:00] VITALS: BP 122/60
--- NOTE | 2020-07-19 13:10 | NUR ---
Pt left unit at 1310 by wheelchair accompanied by son, Torsten. IV removed with no complications, VSS. Discharge paperwork discussed with pt, including follow-up with son at bedside. This RN left phone number with pt and son for Vaughn VAZQUEZ and number for scheduling follow-up appointment with Joanna Gray APRN. Pt and son verbalize understanding with no further questions.
== END 2020-07-19 13:13 | disposition home health service (06) | DRG 417 ==
LOC: ER 06:58 → ED HOLD 09:14 → 5 NORTH 11:56
PROVIDERS: ADMIT Internal Medicine; ATTEND Internal Medicine
PROC: BF101ZZ Fluoroscopy of Bile Ducts using Low Osmolar Contrast (ICD-10-PCS; 2020-07-12)
PROC: 0FT44ZZ Resection of Gallbladder, Percutaneous Endoscopic Approach (ICD-10-PCS; principal; 2020-07-12 17:30)
DX: K81.0 Acute cholecystitis (principal); E43 Unspecified severe protein-calorie malnutrition; M48.56XA Collapsed vertebra, not elsewhere classified, lumbar region, initial encounter for fracture; I69.354 Hemiplegia and hemiparesis following cerebral infarction affecting left non-dominant side; E03.9 Hypothyroidism, unspecified; F20.9 Schizophrenia, unspecified; I10 Essential (primary) hypertension; I27.20 Pulmonary hypertension, unspecified; I48.0 Paroxysmal atrial fibrillation; K21.9 Gastro-esophageal reflux disease without esophagitis; K40.90 Unilateral inguinal hernia, without obstruction or gangrene, not specified as recurrent; K59.00 Constipation, unspecified; K82.A1 Gangrene of gallbladder in cholecystitis; N40.0 Benign prostatic hyperplasia without lower urinary tract symptoms; Z79.02 Long term (current) use of antithrombotics/antiplatelets; Z79.82 Long term (current) use of aspirin; Z80.0 Family history of malignant neoplasm of digestive organs; Z82.0 Family history of epilepsy and other diseases of the nervous system; Z87.891 Personal history of nicotine dependence; Z91.19 Patient's noncompliance with other medical treatment and regimen; Z68.25 Body mass index [BMI] 25.0-25.9, adult; Z88.8 Allergy status to other drugs, medicaments and biological substances; Z79.899 Other long term (current) drug therapy; Z20.828 Contact with and (suspected) exposure to other viral communicable diseases
CPT/HCPCS: 36415; 71046; 74176; 74300; 80053; 81001; 82962; 83690; 84484; 85025; 87426; 88304; 93005; 96361; 96365; 96375; 99285; A7015; C9113; J1100; J2370; J2405; J2543; J2710; J3010; J3480; J3490; J7030; J7120; Q9967; 97110-GP; 97116-GP; 97530-GO; 97530-GP; 97535-GO; G0378; U0003-CS

== ENCOUNTER 2020-12-12 02:05 | Inpatient (IN) | payer MEDICARE, OTHER ==
[~2020-12-12] VITALS: Ht 182.9 cm; Wt 84.1 kg
[~2020-12-12 02:05] MED LIST changes: +LACT1CAP19 PO; -LISI-338 PO; +LISI-517 PO
--- NOTE | 2020-12-12 02:15 | PHYS DOC ---
Past Medical History Past Medical History: Schizophrenia Additional Past Medical Histor: bradycardia, stroke x6 Past Medical History Limited secondary to postictal state. Past Surgical History: No Surgical History, Other Additional Past Surgical Histo: "OPEN HEART", hernia Past Surgical History Limited secondary to postictal state. Smoking Status: Former Smoker Alcohol Use: None Drug Use: None Social History Limited secondary to postictal state. General Adult EDM: Chief Complaint: Altered mental status/seizure like activity HPI: HPI: Patient is a 80 year old male that presents to the ED via EMS from home,with complaint of AMS. History is provided from EMS and family. EMS stated pt was found unresponsive by family. Irregular breathing pattern found by EMS, and bagging was initiating. Based on initial presentation and report from EMS, code stroke was initiated. Family has arrived and stated they witnessed seizure like activity around 0130 this morning. Pt has history of multiple strokes, and is on a blood thinner, family is not sure what type of blood thinner. Patient has probably history of seizures. Patient is more awake. No other symptoms or complains. History of present illness limited secondary to postictal state.. Review of Systems: Review of Systems: Constitutional: Denies fever or chills Integument: Denies laceration Neurologic: Denies headache, focal weakness or sensory changes; witnessed seizure like activity Limited secondary to postictal state. Allergies: Allergies: Allergies Coded Allergies Type Severity Reaction Last Updated Verified chlorpheniramine Allergy Intermediate 07/03/16 Yes oxymetazoline Allergy Intermediate 07/03/16 Yes pheniramine Allergy Intermediate 07/03/16 Yes phenylephrine Allergy Intermediate 07/03/16 Yes pseudoephedrine Allergy Intermediate 07/03/16 Yes Physical Exam: PE: Constitutional: Well developed, well nourished, no acute distress, non-toxic appearance HENT: Normocephalic, atraumatic Eyes: PERRL, EOMI, conjunctiva normal, no discharge Neck: Normal range of motion, no tenderness, supple Lungs & Thorax: No respiratory distress, equal chest rise and fall Abdomen: Soft, no tenderness Skin: Warm, dry, no erythema, no rash Extremities: No tenderness, ROM intact, no edema Neurologic: Alert but disoriented, normal motor function, normal sensory function, no focal deficits noted Psychologic: Affect normal, judgment abnormal EKG: EKG: Time: 021 Impression: Sinus tach with heart rate of [address] elevation. QRS 122 ms. QTc 453. Radiology/Procedures: Radiology/Procedures: PROCEDURE: CT HEAD AND CERVICAL SPINE WO EXAM: CT head and cervical spine without contrast INDICATION: Stroke alert, altered mental status COMPARISON: CT head and C-spine 11/14/2018 TECHNIQUE: Axial CT imaging through the head and cervical spine without intravenous contrast. Sagittal and coronal reformats were obtained of the cervical spine. One or more of the following individualized dose reduction techniques were utilized for this examination: 1. Automated exposure control 2. Adjustment of the mA and/or kV according to patient size 3. Use of iterative reconstruction technique. FINDINGS: CT head: Right hemispheric encephalomalacia is unchanged. Ventricles and sulci are moderately enlarged. There is no intracranial hemorrhage, acute infarct, or mass lesion. The skull and scalp are intact. The visualized paranasal sinuses and mastoid air cells are clear. Surgical changes of the left globe. CT cervical spine: No acute fracture. Alignment is normal. There is mild/moderate disc space narrowing at C3-C4 through C5-C6. There is facet arthrosis and uncovertebral joint proliferation resulting in moderate left foraminal narrowing at C4-C5 and right foraminal narrowing at C5-C6. There is milder foraminal narrowing at other levels. Prevertebral soft tissue is normal. There are calcifications in the carotid bulbs. IMPRESSION: 1. Unchanged right hemispheric encephalomalacia. No intracranial hemorrhage or other acute abnormality. 2. No acute osseous abnormality of the cervical spine. FOR INTERNAL CODING PURPOSES Critical result: Findings discussed with at 12/12/2020 2:45 AM. RESULT CODE: (C) Electronically signed by: Susana Sidhu MD (12/12/2020 2:52 AM) [id number] PROCEDURE: CHEST AP ONLY EXAM: XR CHEST 1V 12/12/2020 2:31 AM CLINICAL INDICATION: Altered mental status COMPARISON: Chest radiograph 07/12/2020 TECHNIQUE: AP semi-upright view of the chest FINDINGS: The heart and mediastinum are stable. Lungs are hypoexpanded. No consolidation, pleural effusion, or pneumothorax. No acute osseous abnormality. Cholecystectomy clips noted. IMPRESSION: No acute cardiopulmonary abnormality. Electronically signed by: Susana Sidhu MD (12/12/2020 6:31 AM) [id number] Course & Med Decision Making: Course & Med Decision Making Pertinent Labs and Imaging studies reviewed. (See chart for details) Patient is a 80 year old male arriving from home via EMS with AMS. Code Stroke was initiated, based on EMS reports and patient's presenting examination. After further information was obtained and based on family information and correlative labs, seizure is suspected. Labs obtained and posted to chart. Lactic acid elevated. IVF hydration given. Ammonia also elevated. Lactulose provided. CT head/cervical spine without acute process. Patient requiring admission for further evaluation and treatment. Discussed with Dr. Light (PCP) who is in agreement with admission. Discussed findings and plan with patient and family, who acknowledges understanding and agreement. Maximoon Disclaimer: Adri Disclaimer: This electronic medical record was generated, in whole or in part, using a voice recognition dictation system. Departure Departure Impression: Primary Impression: Altered mental status Qualified Codes: R41.82 - Altered mental status, unspecified Additional Impressions: Witnessed seizure-like activity Lactic acidosis Acute metabolic encephalopathy Disposition: ADMITTED INPT THIS HOSP Admitting Physician: Alea Light Condition: STABLE Referrals: ALEA LIGHT MD (PCP) Scripts Lidocaine (Lidocaine PATCH ) 1 Each Adh..patch 1 PATCH TD DAILY for pain for 30 Days, #30 PATCH Prov: ALEA LIGHT MD 12/14/20 Methyl Salicylate/Menthol (BENGAY GREASELESS CREAM) 57 Gm Cream..g. 1 MICHEL TP PRN QID PRN for MUSCLE PAIN for 15 Days, #100 GM Prov: ALEA LIGHT MD 12/14/20 Acetaminophen (TYLENOL) 325 Mg Tablet 650 MG PO PRN Q6HRS PRN for MILD PAIN / TEMP > 100.3'F for 30 Days, #120 TAB Prov: ALEA LIGHT MD 12/14/20 NIHSS Stroke Scale NIH Stroke Scale: NIH Stroke Scale Response (Comments) Value Level of Consciousness: 0 Alert/Responsive 0 LOC Questions: 0 Answers both correctly 0 LOC Commands: 0 Performs both tasks 0 Best Gaze: 0 Normal 0 Visual: 0 No visual loss 0 Facial Palsy: 0 Normal, symmetrical 0 Motor - Left Arm 0 No drift 0 Motor - Right Arm 0 No drift 0 Motor - Left Leg 0 No drift 0 Motor: Right Leg 0 No drift 0 Limb Ataxia: 0 Absent 0 Sensory: 0 No loss 0 Best Language: 0 Normal 0 Dysathria: 0 Normal 0 Extinction and Inattention: 0 Normal 0 Total 0 MORRISON,YEISON Medeiros DO Dec 12, 2020 02:15
[2020-12-12 02:31] LABS: BASO # 0.1 x10^3/uL (0.0-0.2); BASO % 1 % (0-3); EOS # 0.2 x10^3/uL (0.0-0.7); EOS % 2 % (0-3); HEMATOCRIT 44.2 % (39.0-53.0); HEMOGLOBIN 15.7 g/dL (13.0-17.5); LYMPH # 6.1 x10^3/uL (1.0-4.8); LYMPH % 57 % (24-48); MEAN CORPUSCULAR HEMOGLOBIN 34 pg (25-35); MEAN CORPUSCULAR HGB CONC 35 g/dL (31-37); MEAN CORPUSCULAR VOLUME 96 fL (79-100); MONO # 0.9 x10^3/uL (0.0-1.1); MONO % 8 % (0-9); NEUT # 3.6 x10^3/uL (1.8-7.7); NEUT % 33 % (31-73); PLATELET COUNT 200 x10^3/uL (140-400); RED CELL DISTRIBUTION WIDTH 14.5 % (11.5-14.5); WHITE BLOOD COUNT 10.9 x10^3/uL (4.0-11.0)
[2020-12-12 02:38] LABS: PROTHROMBIN TIME PATIENT 15.1 SEC (11.7-14.0)
[2020-12-12 02:42] LABS: CALCIUM 8.8 mg/dL (8.5-10.1); CREATININE 1.2 mg/dL (0.7-1.3); GFR 58.3; POTASSIUM 3.6 mmol/L (3.5-5.1)
[2020-12-12 02:48] LABS: ALBUMIN 3.6 g/dL (3.4-5.0); ALBUMIN/GLOBULIN RATIO 0.8 (1.0-1.7); MAGNESIUM 2.3 mg/dL (1.8-2.4); TOTAL BILIRUBIN 0.7 mg/dL (0.2-1.0); TOTAL PROTEIN 7.9 g/dL (6.4-8.2)
--- NOTE | 2020-12-12 02:55 | RAD ---
EXAM: CT head and cervical spine without contrast INDICATION: Stroke alert, altered mental status COMPARISON: CT head and C-spine 11/14/2018 TECHNIQUE: Axial CT imaging through the head and cervical spine without intravenous contrast. Sagitta l and coronal reformats were obtained of the cervical spine. One or more of the following individualized dose reduction techniques were utilized for this examinat ion: 1. Automated exposure control 2. Adjustment of the mA and/or kV according to patient size 3. Use of iterative reconstruction technique. FINDINGS: CT head: Right hemispheric encephalomalacia is unchanged. Ventricles and sulci are moderately enlarged. There is no intracranial hemorrhage, acute infarct, or mass lesion. The skull and scalp are intact. The vis ualized paranasal sinuses and mastoid air cells are clear. Surgical changes of the left globe. CT cervical spine: No acute fracture. Alignment is normal. There is mild/moderate disc space narrowing at C3-C4 through C5-C6. There is facet arthrosis and uncovertebral joint proliferation resulting in moderate left fora jorge narrowing at C4-C5 and right foraminal narrowing at C5-C6. There is milder foraminal narrowing at other levels. Prevertebral soft tissue is normal. There are calcifications in the carotid bulbs. IMPRESSION: 1. Unchanged right hemispheric encephalomalacia. No intracranial hemorrhage or other acute abnormalit y. 2. No acute osseous abnormality of the cervical spine. FOR INTERNAL CODING PURPOSES Critical result: Findings discussed with at 12/12/2020 2:45 AM. RESULT CODE: (C) Electronically signed by: Susana Sidhu MD (12/12/2020 2:52 AM) [id number]
[2020-12-12] MEDS ORDERED: IV NORMAL SALINE 1000ML BAG 1,000 ML IV ONE ×2 (03:00→04:00)
[2020-12-12 03:01] LABS: % ATYL 4 % (0-0); % BASOS 1 % (0-3); % LYMPHS 48 % (24-48); % MONOS 7 % (0-10); % SEGS 40 % (35-66); NUCLEATED RBC 1; PLT ESTIMATE ADEQUATE (ADEQUATE)
[2020-12-12] MEDS ORDERED: ASPIRIN CHEWABLE 81 MG TABLET. PO ONE (03:15)
[2020-12-12] MEDS ORDERED: ASPIRIN RECTAL 300 MG SUPP. PR ONE (03:30)
[2020-12-12] MEDS ORDERED: ONDANSETRON PF 4 MG/2 ML VIAL. IV PRN (03:45)
[2020-12-12 05:29] VITALS: BP 129/76
[2020-12-12] MEDS: LACTULOSE 20 GM/30 ML SOLUTION. PO SCH ×5 (05:48→22:15)
[2020-12-12] MEDS ORDERED: LEVO112T49 PO (06:03)
--- NOTE | 2020-12-12 06:33 | RAD ---
EXAM: XR CHEST 1V 12/12/2020 2:31 AM CLINICAL INDICATION: Altered mental status COMPARISON: Chest radiograph 07/12/2020 TECHNIQUE: AP semi-upright view of the chest FINDINGS: The heart and mediastinum are stable. Lungs are hypoexpanded. No consolidation, pleural ef fusion, or pneumothorax. No acute osseous abnormality. Cholecystectomy clips noted. IMPRESSION: No acute cardiopulmonary abnormality. Electronically signed by: Susana Sidhu MD (12/12/2020 6:31 AM) [id number]
[2020-12-12 07:00] VITALS: BP 132/79
[2020-12-12] MEDS ORDERED: POTASSIUM CHLORIDE 20 MEQ TABLET.ER. PO ONE (09:30)
[2020-12-12] MEDS ORDERED: ACETAMINOPHEN 325 MG TABLET. PO PRN (09:45)
--- NOTE | 2020-12-12 09:54 | PDOC ---
Provider Note Date of Service: DATE: 12/12/20 TIME: 09:54 Provider Note H&P dictated #[id number] Justifications for Admission Other Justification ANUM CESPEDES MD Dec 12, 2020 09:54
[2020-12-12] MEDS: LEVOTHYROXINE 112 MCG TABLET PO SCH (10:11)
[2020-12-12] MEDS: ASPIRIN ENTERIC COATED 81 MG TABLET.DR. PO SCH (10:11)
[2020-12-12] MEDS: CLOPIDOGREL BISULFATE 75 MG TABLET PO SCH (10:11)
[2020-12-12] MEDS: PANTOPRAZOLE 40 MG TABLET.DR. PO SCH (10:12)
[2020-12-12] MEDS: METOPROLOL SUCC 24HR ER 25 MG TAB.ER.24H. PO SCH (10:12)
[2020-12-12] MEDS ORDERED: METHYL SALICYLATE/MENTHOL TOPICAL CREAM 57GM TUBE. TP PRN (10:15)
[2020-12-12] MEDS: HEPARIN for SUB-Q USE 5,000 UNIT/ML VIAL. SQ SCH ×2 (10:23→22:19)
--- NOTE | 2020-12-12 10:23 | HP ---
ADMIT DATE: 12/12/2020 HISTORY OF PRESENT ILLNESS: This 80-year-old male, who has a history of cerebrovascular accident and cognitive deficits, states that he was sleeping in his bed and he found himself on the floor and as per son, he had seizures. 911 was called and he was brought to the Emergency Room. The patient does not remember the seizures, but does remember that he blacked out. He denies any chest pains, palpitations, cold, cough, congestion, dyspnea or dizziness. He is a poor historian. He does complain of pain in his back towards the lower back. He states that this is because of his fall. He denies any head trauma. He denies any dysuria, fever, chills, cold or cough. He is a poor historian. In the Emergency Room, CT scan of head and neck showed unchanged right hemispheric encephalomalacia due to previous stroke. No acute abnormalities of the cervical spine. Chest x-ray did not show any acute changes. WBC count was 10.9, hemoglobin 15.7, polys 33, lymphocytes 57. Sodium 140, potassium 3.6, BUN 9, creatinine 1.2. CK was 101, total protein 7.9, albumin 3.6. Initial lactic acid was 8.8 and then repeat was 2.2. Ammonia level 126. Troponin level initially was 0.017, repeat was 0.075. Alcohol level was less than 10. Because of the lactic acidosis was felt to be due to seizures, the patient was given IV fluids and his repeat lactic acid level is 2.2. Because of the possible seizures and syncope, the patient has been admitted for further evaluation and management. REVIEW OF SYSTEMS: As noted in the history of present illness. PAST MEDICAL HISTORY: The patient's last admission here was in 07/12/2020 for acute cholecystitis. He underwent laparoscopic cholecystectomy at that time. 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 PAST SURGICAL HISTORY: Includes inguinal hernia repair x 2, he had a cyst removed from his scalp and also had hernia repair and had a laparoscopic cholecystectomy for gangrenous cholecystitis on 07/12/2020. SOCIAL HISTORY: No history of smoking, alcoholism or drug abuse. FAMILY HISTORY: Mother had stomach cancer and multiple sclerosis. ALLERGIES: THE PATIENT IS ALLERGIC TO CHLORPHENIRAMINE, OXYMETAZOLINE, PHENIRAMINE, PHENYLEPHRINE, AND PSEUDOEPHEDRINE. MEDICATIONS: I have reviewed the medications. He is not sure about what he is taking. He states that he does not have a pill box with a large print on it. PHYSICAL EXAMINATION: GENERAL: The patient is an elderly male who is alert, oriented, forgetful, which is his baseline status and not in acute distress. VITAL SIGNS: Temperature 98.5, pulse 107 per minute, respirations 12 per minute, blood pressure 160/94 mmHg. The patient is hard of hearing. The patient is alert and not in acute distress. EYES: Pupils reacting to light. Conjunctivae pale. Sclerae muddy. HENT: Unremarkable. NECK: Supple. JVP normal. No thyromegaly. Trachea midline. LUNGS: Decreased breath sounds at bases. CARDIOVASCULAR: S1, S2 regular. ABDOMEN: Soft, nontender, no guarding, no rigidity. Bowel sounds present. EXTREMITIES: No edema, no cyanosis, no calf tenderness. CENTRAL NERVOUS SYSTEM: The patient has some baseline cognitive deficits, hard of hearing, has left-sided weakness from previous stroke. No new changes noted at this time. SKIN: Warm and dry. There is no cyanosis. LUMBAR SPINE: Some pain on movement. No swelling noted. LABORATORY FINDINGS: As noted in the history of present illness. IMPRESSION: 1. Seizures. 2. Syncope. 3. Elevated troponin level, CK is normal, possibly due to type 2 demand ischemia. 4. Lactic acidosis, likely due to seizures, resolved with fluids. 5. Back pain. 6. 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 7. Hypertension. 8. History of atrial fibrillation with bradycardia, not a candidate for anticoagulation. 9. History of paroxysmal atrial fibrillation, not a candidate for anticoagulation. 10. Left inguinal hernia. 11. Acquired hypothyroidism. 12. History of schizophrenia. 13. History of noncompliance. PLAN: Consult Dr. Briceno for Neurology evaluation and management, and EEG and an MRI of the brain has been ordered for possible seizures. Elevated troponin, consult Dr. Velasquez for Cardiology evaluation and management. Repeat troponin level and EKG. Order PT, OT, speech therapy evaluation. Order heparin subcutaneously for DVT prophylaxis. Restart aspirin, Plavix and other home medications. For details, please refer to the orders. Prognosis of this patient is poor due to his multiple medical problems, noncompliance and cognitive deficits. ANUM CESPEDES MD DR: JAVIER/elan JOB#: [id number] / [id number]
--- NOTE | 2020-12-12 10:54 | PDOC2 ---
NEUROLOGY CONSULT Date of Service DOS: DATE: 12/12/20 TIME: 10:41 Reason for Consult Reason for Consult: Altered mental status, possible seizure Referring Physician Referring Physician: Dr. Light Source Source: Caregiver, Patient History of Present Illness History of Present Illness The patient is an 80-year-old right-handed male with history of strokes for which I have seen him in the past. I most recently saw him in 2016 for syncope. He was sleeping in his bed and then was on the floor. Son witnessed some seizure activity. He has woken up fairly quickly. He denies any prior history of seizure. In the emergency department he was found to have lactic acidosis and no acute findings on his head CT. Past Medical History Cardiovascular: AFIB, HTN, Valve insufficiency, Pulmonary hypertension, Other Pulmonary: Bronchitis CENTRAL NERVOUS SYSTEM: CVA GI: GERD, Peptic Ulcer disease Psych: Schizophrenia Musculoskeletal: Osteoarthritis Renal/: Other (Urinary retention) Endocrine: Hypothyroidism Dermatology: Cellulitis Past Surgical History Past Surgical History: Pacemaker (defribiilator, LINQ recorder), Cholecystectomy, Hernia Repair Family History Family History: Other (Multiple sclerosis) Social History Social History lives with family, no tobacco or alcohol Current Medications Current Medications Current Medications Sodium Chloride 1,000 ml @ 1,000 mls/hr 1X ONCE IV Last administered on 12/12/20at 03:20; Start 12/12/20 at 03:00; Stop 12/12/20 at 03:59; Status DC Aspirin (Aspirin Chewable) 324 mg 1X ONCE PO ; Start 12/12/20 at 03:15; Stop 12/12/20 at 03:10; Status DC Aspirin (Aspirin Rectal Supp) 300 mg 1X ONCE WA Last administered on 12/12/20at 03:20; Start 12/12/20 at 03:30; Stop 12/12/20 at 03:31; Status DC Sodium Chloride 1,000 ml @ 100 mls/hr 1X ONCE IV Last administered on 12/12/20at 03:34; Start 12/12/20 at 04:00; Stop 12/12/20 at 13:59 Ondansetron HCl (Zofran) 4 mg PRN Q8HRS PRN IV NAUSEA/VOMITING 1ST CHOICE; Start 12/12/20 at 03:45; Stop 12/13/20 at 03:44 Lactulose (Lactulose) 30 gm Q4HRS PO Last administered on 12/12/20at 05:48; Start 12/12/20 at 04:30 Lorazepam (Ativan Inj) 1 mg PRN Q4HRS PRN IVP TREMORS; Start 12/12/20 at 04:30; Stop 12/13/20 at 04:29 Potassium Chloride (Klor-Con) 20 meq 1X ONCE PO Last administered on 12/12/20at 10:11; Start 12/12/20 at 09:30; Stop 12/12/20 at 09:31; Status DC Levothyroxine Sodium (Synthroid) 112 mcg DAILY PO Last administered on 12/12/20at 10:11; Start 12/12/20 at 09:30 Metoprolol Succinate (Toprol Xl) 12.5 mg DAILY PO Last administered on 12/12/20at 10:12; Start 12/12/20 at 09:30 Pantoprazole Sodium (Protonix) 40 mg DAILYAC PO Last administered on 12/12/20at 10:12; Start 12/12/20 at 11:30 Aspirin (Ecotrin) 81 mg DAILYWBKFT PO Last administered on 12/12/20at 10:11; Start 12/12/20 at 09:30 Clopidogrel Bisulfate (Plavix) 75 mg DAILY PO Last administered on 12/12/20at 10:11; Start 12/12/20 at 10:00 Acetaminophen (Tylenol) 650 mg PRN Q6HRS PRN PO MILD PAIN / TEMP > 100.3'F Last administered on 12/12/20at 10:12; Start 12/12/20 at 09:45 Heparin Sodium (Porcine) (Heparin Sodium) 5,000 unit Q12HR SQ Last administered on 12/12/20at 10:23; Start 12/12/20 at 10:00 Menthol/Methyl Salicylate (Bengay Greaseless Cream) 1 belén PRN QID PRN TP MUSCLE PAIN; Start 12/12/20 at 10:15 Active Scripts Active Aspirin Ec (Aspirin) 81 Mg Tablet.dr 81 Mg PO DAILYWBKFT 30 Days Reported Levothyroxine Sodium 112 Mcg Tablet 1 Tab PO DAILY Clopidogrel (Clopidogrel Bisulfate) 75 Mg Tablet 75 Mg PO DAILY Omeprazole 20 Mg Capsule.dr 20 Mg PO DAILY Metoprolol Succinate ( Xl ) (Metoprolol Succinate) 25 Mg Tab.er.24h 0.5 Tab PO D AILY Allergies Allergies: Coded Allergies: chlorpheniramine (Verified Allergy, Intermediate, 07/03/16) pt did not remember reaction oxymetazoline (Verified Allergy, Intermediate, 07/03/16) pt did not remember reaction pheniramine (Verified Allergy, Intermediate, 07/03/16) pt did not remember reaction phenylephrine (Verified Allergy, Intermediate, 07/03/16) pt did not remember reaction pseudoephedrine (Verified Allergy, Intermediate, 07/03/16) pt did not remember reaction ROS Review of System Negative for fever, chills, weight loss, shortness of breath, chest pain, indigestion, hematochezia, melena, and dysuria. Full 14-point review of systems is negative. Physical Exam Physical Examination General: Well-developed, well-nourished white male in no acute distress HEENT: Normocephalic andatraumatic. Temporal arteriespulsatile and nontender. Neck: Supple without bruit, no meningismus Musculoskeletal: Stability:see neurologic. Gait exam:see neurologic. Tone:see neurologic.Strength:see neurologic. Neurological: Mental Status: orientation, memory, attention span/concentration, language, fund of knowledge: Knows that he is in the hospital, does not know the date, does not why he is here, names and repeats well. Cranial Nerves:Pupils equal and reactive to light, extraocular movements areintact, visual mcgarry are full to confrontation. Facial sensation is normal. There is no facial asymmetry. Vestibulo-ocular reflex is intact. Palate elevates and tongue protrudes in midline. All other cranial related problems are negative except as mentioned before.Reflexes:2+ and symmetric with flexor plantar responses. Motor:4/5, weaker on the left. Coordination:Finger-nose finger and plfq-yd-hzie testing are normal. Rapid alternating movements and fine finger movements are intact. Gait:Not tested. Sensory:Normal pinprick, vibration, light touch, proprioception. Vitals VITALS Vital Signs Date Time Temp Pulse Resp B/P (MAP) Pulse Ox O2 Delivery O2 Flow Rate FiO2 12/12/20 10:12 72 132/79 12/12/20 07:00 98.0 18 100 Nasal Cannula 98.0 12/12/20 06:29 2.0 Labs Labs Laboratory Tests Test 12/12/20 02:15 12/12/20 06:50 12/12/20 09:54 White Blood Count 10.9 x10^3/uL (4.0-11.0) Red Blood Count 4.60 x10^6/uL (4.30-5.70) Hemoglobin 15.7 g/dL (13.0-17.5) Hematocrit 44.2 % (39.0-53.0) Mean Corpuscular Volume 96 fL (79-100) Mean Corpuscular Hemoglobin 34 pg (25-35) Mean Corpuscular Hemoglobin Concent 35 g/dL (31-37) Red Cell Distribution Width 14.5 % (11.5-14.5) Platelet Count 200 x10^3/uL (140-400) Neutrophils (%) (Auto) 33 % (31-73) Lymphocytes (%) (Auto) 57 % (24-48) Monocytes (%) (Auto) 8 % (0-9) Eosinophils (%) (Auto) 2 % (0-3) Basophils (%) (Auto) 1 % (0-3) Neutrophils # (Auto) 3.6 x10^3/uL (1.8-7.7) Lymphocytes # (Auto) 6.1 x10^3/uL (1.0-4.8) Monocytes # (Auto) 0.9 x10^3/uL (0.0-1.1) Eosinophils # (Auto) 0.2 x10^3/uL (0.0-0.7) Basophils # (Auto) 0.1 x10^3/uL (0.0-0.2) Segmented Neutrophils % 40 % (35-66) Lymphocytes % 48 % (24-48) Atypical Lymphocytes % (Manual) 4 % (0-0) Monocytes % 7 % (0-10) Basophils % 1 % (0-3) Nucleated Red Blood Cells 1 Platelet Estimate Adequate (ADEQUATE) Prothrombin Time 15.1 SEC (11.7-14.0) Prothromb Time International Ratio 1.2 (0.8-1.1) Activated Partial Thromboplast Time 29 SEC (24-38) Sodium Level 140 mmol/L (136-145) Potassium Level 3.6 mmol/L (3.5-5.1) Chloride Level 103 mmol/L (98-107) Carbon Dioxide Level 21 mmol/L (21-32) Anion Gap 16 (6-14) Blood Urea Nitrogen 9 mg/dL (8-26) Creatinine 1.2 mg/dL (0.7-1.3) Estimated GFR (Cockcroft-Gault) 58.3 BUN/Creatinine Ratio 8 (6-20) Glucose Level 144 mg/dL (70-99) Lactic Acid Level 8.8 mmol/L (0.4-2.0) 2.2 mmol/L (0.4-2.0) Calcium Level 8.8 mg/dL (8.5-10.1) Magnesium Level 2.3 mg/dL (1.8-2.4) Total Bilirubin 0.7 mg/dL (0.2-1.0) Aspartate Amino Transf (AST/SGOT) 26 U/L (15-37) Alanine Aminotransferase (ALT/SGPT) 30 U/L (16-63) Alkaline Phosphatase 87 U/L (46-116) Ammonia 126 mcmol/L (11-34) Creatine Kinase 101 U/L (39-308) Creatine Kinase MB (Mass) 0.8 ng/mL (0.0-3.6) Creatine Kinase MB Relative Index 0.8 % (0-4) Troponin I Quantitative < 0.017 ng/mL (0.000-0.055) 0.075 ng/mL (0.000-0.055) 0.088 ng/mL (0.000-0.055) Total Protein 7.9 g/dL (6.4-8.2) Albumin 3.6 g/dL (3.4-5.0) Albumin/Globulin Ratio 0.8 (1.0-1.7) Ethyl Alcohol Level < 10 mg/dL (0-10) Laboratory Tests Test 12/12/20 02:15 12/12/20 06:50 12/12/20 09:54 White Blood Count 10.9 x10^3/uL (4.0-11.0) Red Blood Count 4.60 x10^6/uL (4.30-5.70) Hemoglobin 15.7 g/dL (13.0-17.5) Hematocrit 44.2 % (39.0-53.0) Mean Corpuscular Volume 96 fL (79-100) Mean Corpuscular Hemoglobin 34 pg (25-35) Mean Corpuscular Hemoglobin Concent 35 g/dL (31-37) Red Cell Distribution Width 14.5 % (11.5-14.5) Platelet Count 200 x10^3/uL (140-400) Neutrophils (%) (Auto) 33 % (31-73) Lymphocytes (%) (Auto) 57 % (24-48) Monocytes (%) (Auto) 8 % (0-9) Eosinophils (%) (Auto) 2 % (0-3) Basophils (%) (Auto) 1 % (0-3) Neutrophils # (Auto) 3.6 x10^3/uL (1.8-7.7) Lymphocytes # (Auto) 6.1 x10^3/uL (1.0-4.8) Monocytes # (Auto) 0.9 x10^3/uL (0.0-1.1) Eosinophils # (Auto) 0.2 x10^3/uL (0.0-0.7) Basophils # (Auto) 0.1 x10^3/uL (0.0-0.2) Segmented Neutrophils % 40 % (35-66) Lymphocytes % 48 % (24-48) Atypical Lymphocytes % (Manual) 4 % (0-0) Monocytes % 7 % (0-10) Basophils % 1 % (0-3) Nucleated Red Blood Cells 1 Platelet Estimate Adequate (ADEQUATE) Prothrombin Time 15.1 SEC (11.7-14.0) Prothromb Time International Ratio 1.2 (0.8-1.1) Activated Partial Thromboplast Time 29 SEC (24-38) Sodium Level 140 mmol/L (136-145) Potassium Level 3.6 mmol/L (3.5-5.1) Chloride Level 103 mmol/L (98-107) Carbon Dioxide Level 21 mmol/L (21-32) Anion Gap 16 (6-14) Blood Urea Nitrogen 9 mg/dL (8-26) Creatinine 1.2 mg/dL (0.7-1.3) Estimated GFR (Cockcroft-Gault) 58.3 BUN/Creatinine Ratio 8 (6-20) Glucose Level 144 mg/dL (70-99) Lactic Acid Level 8.8 mmol/L (0.4-2.0) 2.2 mmol/L (0.4-2.0) Calcium Level 8.8 mg/dL (8.5-10.1) Magnesium Level 2.3 mg/dL (1.8-2.4) Total Bilirubin 0.7 mg/dL (0.2-1.0) Aspartate Amino Transf (AST/SGOT) 26 U/L (15-37) Alanine Aminotransferase (ALT/SGPT) 30 U/L (16-63) Alkaline Phosphatase 87 U/L (46-116) Ammonia 126 mcmol/L (11-34) Creatine Kinase 101 U/L (39-308) Creatine Kinase MB (Mass) 0.8 ng/mL (0.0-3.6) Creatine Kinase MB Relative Index 0.8 % (0-4) Troponin I Quantitative < 0.017 ng/mL (0.000-0.055) 0.075 ng/mL (0.000-0.055) 0.088 ng/mL (0.000-0.055) Total Protein 7.9 g/dL (6.4-8.2) Albumin 3.6 g/dL (3.4-5.0) Albumin/Globulin Ratio 0.8 (1.0-1.7) Ethyl Alcohol Level < 10 mg/dL (0-10) Images Images CT head and cervical spine without contrast INDICATION: Stroke alert, altered mental status COMPARISON: CT head and C-spine 11/14/2018 TECHNIQUE: Axial CT imaging through the head and cervical spine without intravenous contrast. Sagittal and coronal reformats were obtained of the cervical spine. One or more of the following individualized dose reduction techniques were utilized for this examination: 1. Automated exposure control 2. Adjustment of the mA and/or kV according to patient size 3. Use of iterative reconstruction technique. FINDINGS: CT head: Right hemispheric encephalomalacia is unchanged. Ventricles and sulci are moderately enlarged. There is no intracranial hemorrhage, acute infarct, or mass lesion. The skull and scalp are intact. The visualized paranasal sinuses and mastoid air cells are clear. Surgical changes of the left globe. CT cervical spine: No acute fracture. Alignment is normal. There is mild/moderate disc space narrowing at C3-C4 through C5-C6. There is facet arthrosis and uncovertebral joint proliferation resulting in moderate left foraminal narrowing at C4-C5 and right foraminal narrowing at C5-C6. There is milder foraminal narrowing at other levels. Prevertebral soft tissue is normal. There are calcifications in the carotid bulbs. IMPRESSION: 1. Unchanged right hemispheric encephalomalacia. No intracranial hemorrhage or other acute abnormality. 2. No acute osseous abnormality of the cervical spine. Assessment/Plan Assessment/Plan Impression: Seizure with lactic acidosis, rule out inciting causes including cardiac problems, note elevated troponin, as well as nocturnal oxygen desaturation. Prior right hemispheric strokes with left hemiparesis Hypertension, syncope, atrial fibrillation, hypothyroidism, schizophrenia, and noncompliance in the past. Recommendations: I canceled the MRI ordered because he has the pacemaker/defibrillator Electroencephalogram Nocturnal oxygen desaturation study Cardiac work-up Hold off on starting anticonvulsants until the studies are complete. Thank you for letting me help with the patient's care CARLOTA JIANG MD Dec 12, 2020 10:54
[2020-12-12 11:00] VITALS: BP 130/70
--- NOTE | 2020-12-12 11:25 | PDOC2 ---
TATA THURMAN MANAGER OF CLINICAL 12/12/20 1125: CARDIAC CONSULT DATE OF CONSULT Date of Consult DATE: 12/12/20 TIME: 11:23 REASON FOR CONSULT Reason for Consult: Elevated troponin REFERRING PHYSICIAN Referring Physician: Dr. Light SOURCE Source: Chart review, Patient HISTORY OF PRESENT ILLNESS HISTORY OF PRESENT ILLNESS This is an 80 yo male who presented secondary to altered mental status. Was found down by family and was unresponsive. Son noted seizure-like activity. Patient is very difficult historian. Does not known how he ended up on the floor at home. Does not recall and dizziness or falling. Does not known if he passed out. Reports h/o "open heart twice" although no chest/sternal incision is present. He denies any chest pain, dizziness, diaphoresis, SOA, or nausea/vomiting. Does complain of mid-back pain. PAST MEDICAL HISTORY Past Medical History CENTRAL NERVOUS SYSTEM: CVA (residual left side weakness) Cardiac: presyncope, bradycardia, chronic LBBB, PAFIB GI: GERD (with HH) Heme/Onc: Anemia NOS Hepatobiliary: No pertinent hx Psych: Schizophrenia Musculoskeletal: Osteoarthritis Rheumatologic: No pertinent hx Infectious disease: No pertinent hx ENT: Other (cataracts that require surgery), severely PAIMIUT Renal/: No pertinent hx Endocrine: Hypothyroidism Dermatology: Cellulitis (LLE) PAST SURGICAL HISTORY Past Surgical History Hernia Repair (BIH), Other (ILR - Reveal; 2013 and 2017 explantation) FAMILY HISTORY Family History noncontributory to CV SOCIAL HISTORY Social History Smoke: Quit ALCOHOL: none Drugs: None Lives: with Family CURRENT MEDICATIONS CURRENT MEDICATIONS Current Medications Medications (Trade) Dose Ordered Sig/Manny Route PRN Reason Start Time Stop Time Status Last Admin Dose Admin Sodium Chloride 1,000 ml @ 1,000 mls/hr 1X ONCE IV 12/12/20 03:00 12/12/20 03:59 DC 12/12/20 03:20 Aspirin (Aspirin Rectal Supp) [address] 12/12/20 03:30 12/12/20 03:31 DC 12/12/20 03:20 Sodium Chloride 1,000 ml @ 100 mls/hr 1X ONCE IV 12/12/20 04:00 12/12/20 13:59 12/12/20 03:34 Lactulose (Lactulose) 30 gm Q4HRS PO 1/18/21 04:30 12/12/20 10:50 Potassium Chloride (Klor-Con) 20 meq 1X ONCE PO 12/12/20 09:30 12/12/20 09:31 DC 12/12/20 10:11 Levothyroxine Sodium (Synthroid) 112 mcg DAILY PO 12/12/20 09:30 12/12/20 10:11 Metoprolol Succinate (Toprol Xl) 12.5 mg DAILY PO 12/12/20 09:30 12/12/20 10:12 Pantoprazole Sodium (Protonix) 40 mg DAILYAC PO 12/12/20 11:30 12/12/20 10:12 Aspirin (Ecotrin) 81 mg DAILYWBKFT PO 12/12/20 09:30 12/12/20 10:11 Clopidogrel Bisulfate (Plavix) 75 mg DAILY PO 12/12/20 10:00 12/12/20 10:11 Acetaminophen (Tylenol) 650 mg PRN Q6HRS PRN PO MILD PAIN / TEMP > 100.3'F 12/12/20 09:45 12/12/20 10:12 Heparin Sodium (Porcine) (Heparin Sodium) 5,000 unit Q12HR SQ 12/12/20 10:00 12/12/20 10:23 ALLERGIES ALLERGIES: Coded Allergies: chlorpheniramine (Verified Allergy, Intermediate, 07/03/16) pt did not remember reaction oxymetazoline (Verified Allergy, Intermediate, 07/03/16) pt did not remember reaction pheniramine (Verified Allergy, Intermediate, 07/03/16) pt did not remember reaction phenylephrine (Verified Allergy, Intermediate, 07/03/16) pt did not remember reaction pseudoephedrine (Verified Allergy, Intermediate, 07/03/16) pt did not remember reaction ROS Review of System 14 point ROS conducted with pertinent positives noted above in HPI although patient is a difficult historian PHYSICAL EXAM PHYSICAL EXAM General: Alert, Oriented X3, Cooperative, No acute distress HEENT: Mucous membr. moist/pink, Other (Very PAIMIUT) Lungs: Clear to auscultation, Normal air movement Heart: Regular rate (SR), Normal S1, Normal S2, Other (2/6 systolic murmur to LLS border) Abdomen: Soft, No tenderness Extremities: No cyanosis, No edema Skin: No breakdown, No significant lesion Neuro: Normal speech, Sensation intact Psych/Mental Status: Mental status NL, Mood NL MUSCULOSKELETAL: Osteoarthritic changes both hands VITALS/I&O VITALS/I&O: Vital Signs Date Time Temp Pulse Resp B/P (MAP) Pulse Ox O2 Delivery O2 Flow Rate FiO2 12/12/20 11:00 98.5 78 20 130/70 (90) 97 Nasal Cannula 98.5 12/12/20 06:29 2.0 LABS Lab: Laboratory Tests Test 12/12/20 02:15 12/12/20 06:50 12/12/20 09:54 White Blood Count 10.9 x10^3/uL (4.0-11.0) Red Blood Count 4.60 x10^6/uL (4.30-5.70) Hemoglobin 15.7 g/dL (13.0-17.5) Hematocrit 44.2 % (39.0-53.0) Mean Corpuscular Volume 96 fL (79-100) Mean Corpuscular Hemoglobin 34 pg (25-35) Mean Corpuscular Hemoglobin Concent 35 g/dL (31-37) Red Cell Distribution Width 14.5 % (11.5-14.5) Platelet Count 200 x10^3/uL (140-400) Neutrophils (%) (Auto) 33 % (31-73) Lymphocytes (%) (Auto) 57 % (24-48) H Monocytes (%) (Auto) 8 % (0-9) Eosinophils (%) (Auto) 2 % (0-3) Basophils (%) (Auto) 1 % (0-3) Neutrophils # (Auto) 3.6 x10^3/uL (1.8-7.7) Lymphocytes # (Auto) 6.1 x10^3/uL (1.0-4.8) H Monocytes # (Auto) 0.9 x10^3/uL (0.0-1.1) Eosinophils # (Auto) 0.2 x10^3/uL (0.0-0.7) Basophils # (Auto) 0.1 x10^3/uL (0.0-0.2) Segmented Neutrophils % 40 % (35-66) Lymphocytes % 48 % (24-48) Atypical Lymphocytes % (Manual) 4 % (0-0) H Monocytes % 7 % (0-10) Basophils % 1 % (0-3) Nucleated Red Blood Cells 1 Platelet Estimate Adequate (ADEQUATE) Prothrombin Time 15.1 SEC (11.7-14.0) H Prothrombin Time INR 1.2 (0.8-1.1) H Activated Partial Thromboplast Time 29 SEC (24-38) Sodium Level 140 mmol/L (136-145) Potassium Level 3.6 mmol/L (3.5-5.1) Chloride Level 103 mmol/L (98-107) Carbon Dioxide Level 21 mmol/L (21-32) Anion Gap 16 (6-14) H Blood Urea Nitrogen 9 mg/dL (8-26) Creatinine 1.2 mg/dL (0.7-1.3) Estimated GFR (Cockcroft-Gault) 58.3 BUN/Creatinine Ratio 8 (6-20) Glucose Level 144 mg/dL (70-99) H Lactic Acid Level 8.8 mmol/L (0.4-2.0) *H 2.2 mmol/L (0.4-2.0) H Calcium Level 8.8 mg/dL (8.5-10.1) Magnesium Level 2.3 mg/dL (1.8-2.4) Total Bilirubin 0.7 mg/dL (0.2-1.0) Aspartate Amino Transferase (AST) 26 U/L (15-37) Alanine Aminotransferase (ALT) 30 U/L (16-63) Alkaline Phosphatase 87 U/L (46-116) Ammonia 126 mcmol/L (11-34) H Creatine Kinase 101 U/L (39-308) Creatine Kinase MB (Mass) 0.8 ng/mL (0.0-3.6) Creatine Kinase MB Relative Index 0.8 % (0-4) Troponin I Quantitative < 0.017 ng/mL (0.000-0.055) 0.075 ng/mL (0.000-0.055) 0.088 ng/mL (0.000-0.055) Total Protein 7.9 g/dL (6.4-8.2) Albumin 3.6 g/dL (3.4-5.0) Albumin/Globulin Ratio 0.8 (1.0-1.7) L Ethyl Alcohol Level < 10 mg/dL (0-10) Laboratory Tests 12/12/20 02:15 Laboratory Tests 12/12/20 02:15 ECHOCARDIOGRAM ECHOCARDIOGRAM <Conclusion> The left ventricular systolic function is normal. The Ejection Fraction is 60-65%. There is normal LV segmental wall motion. Mild mitral regurgitation. Mild tricuspid regurgitation. There is mild pulmonary hypertension. The PA pressure was estimated at 35 mmHg. There is no evidence of significant pericardial effusion. DATE: 01/22/17 1426 STRESS TEST STRESS TEST Conclusion 1. No evidence of EKG changes with stress testing. 2. Normal perfusion at stress/rest. 3. Low risk study. 4. EF > 60%. DATE: 04/01/18 1337 Conclusion 1. Regadenoson cardioisotope stress test did not show any evidence of ischemia or infarct. 2. Normal left ventricular systolic function with ejection fraction calculated at 75%. 3. Low risk for cardiac events. DATE: 02/17/20 1201 ASSESSMENT/PLAN ASSESSMENT/PLAN 1. Altered mental status, metabolic encephalopathy with history schizophrenia 2. Seizure 3. Lactic acidosis 4. Mild troponin elevation; highest 0.08. Most probable type II, demand ischemia. MPI 02/11 without evidence of ischemic or infarct 5. HTN: controlled 6. Chronic LBBB 7. PAFIB; presently SR without ectopies 8. Hypothyroidism; TSH 11 9. H/o CVA 10. H/o Noncompliance Recommendations EKG Echo to assess LV systolic function, presence of WMA Secondary prevention ASA for stroke prevention. Continue home metoprolol low dose Follow neuro recs Supportive care MARILU COLEMAN MD 12/12/20 1842: CARDIAC CONSULT ASSESSMENT/PLAN ASSESSMENT/PLAN Patient seen and examined I agree with our nurse practitioners assessment and plan. Altered mental status, metabolic encephalopathy with history schizophrenia. Seizures as above. Neurology evaluation in progress Minimal troponin elevation; highest 0.08. Consistent with type II, demand ischemia. MPI 02/11 without evidence of ischemic or infarct. Checking echocardiogram HTN: controlled Chronic LBBB PAFIB; presently SR without ectopies Hypothyroidism; TSH 11 H/o CVA TATA THURMAN APRN Dec 12, 2020 11:25 MARILU COLEMAN MD Dec 12, 2020 18:42
--- NOTE | 2020-12-12 12:37 | RAD ---
EXAM: Lumbar spine, 2 views; thoracic spine, 3 views. HISTORY: Pain. Fall. COMPARISON: CT dated 07/12/2020. FINDINGS: Lumbar spine: 2 views of the lumbar spine are obtained. There is levoscoliosis centered at L1. There is no significant listhesis. There is a moderate to severe chronic appearing compression fracture of L1. There is multilevel endplate remodeling and facet arthropathy. There is disc space narrowing pred ominantly at L5-S1. Thoracic spine: 3 views of the thoracic spine are obtained. There is multilevel endplate remodeling. There is mild kyphosis at the lower cervical levels. There is no acute osseous finding. IMPRESSION: 1. Moderate severe chronic appearing L1 compression fracture. This is slightly increased compared to a CT performed 07/12/2020. 2. Multilevel degenerative change throughout the thoracic and lumbar spine, primarily the lumbosacral junction. 3. Lumbar scoliosis. Electronically signed by: Alanna Denise MD (12/12/2020 12:34 PM) [id number]
--- NOTE | 2020-12-12 12:44 | RAD ---
EXAM: Pelvis, single view. HISTORY: Pain. Fall. COMPARISON: None. FINDINGS: A frontal view the pelvis is obtained. There is no fracture, dislocation or subluxation. Th ere is mild marginal femoral head spurring and decreased femoral head-neck offset. There is degenerat cara change at the lower lumbar levels. IMPRESSION: 1. Mild bilateral hip osteoarthritis and decreased femoral head-neck offset, suggesting a component o f chronic hip impingement. 2. No acute osseous finding Electronically signed by: Alanna Denise MD (12/12/2020 12:42 PM) [id number]
--- NOTE | 2020-12-12 13:08 | NUR ---
SW following for discharge planning. Spoke with RN and reviewed chart. SW attempted to meet with pt. Pt is a poor historian and forgetful. Spoke with son Oneil ([phone]). Pt resides with his son. Pt currently on 2l 02 (no home 02), cardiac diet, IV fluids. PT/OT to evaluate. Pt has had [facility] in the past and has also been to [facility] per the son. SW following.
--- NOTE | 2020-12-12 13:22 | EEG ---
DATE OF SERVICE: 12/12/2020 ELECTROENCEPHALOGRAM EEG NUMBER: . OBJECTIVE: The patient is an 80-year-old male with new seizures. DESCRIPTION: This is a digital study. Electrodes are placed according to the international 10-20 system. Bipolar and referential montages are available. Activation procedures typically include hyperventilation and intermittent photic stimulation. INTERPRETATION: The waking background consists of 4-6 Hz, 20-50 microvolt activity, symmetrically distributed over parietooccipital regions and reactive to eye opening. Hyperventilation is not performed. Intermittent photic stimulation is noncontributory. Stage 1 sleep is achieved with normal electroencephalogram patterns. IMPRESSION: This electroencephalogram with the patient awake and asleep is abnormal because of a moderate, diffuse disturbance of cerebral activity consistent with any of a variety of toxic or metabolic encephalopathies. There is no focal, paroxysmal, or epileptiform activity. Thank you for letting us help with the patient's care. CARLOTA JIANG MD DR: BRUNO/elan JOB#: [id number] / [id number] ANUM Bill MD
[2020-12-12 15:00] VITALS: BP 129/77
--- NOTE | 2020-12-12 15:51 | EKG ---
[facility] [address] [place] [address] Test Date: 2020-12-12 Test Time: 15:48:19 Pat Name: DIMITRI PIZANO Department: Room: [facility] Gender: M Tattoo Identifier: ZAIN : [id number] Requested By: ANUM CESPEDES Order Number: [id number] Reading MD: Measurements Intervals [place] Rate: 60 P: 64 MA: 224 QRS: 48 QRSD: 114 T: 14 QT: 474 QTc: 474 Interpretive Statements SINUS RHYTHM PROLONGED MA INTERVAL QRS(T) CONTOUR ABNORMALITY CONSISTENT WITH ANTERIOR INFARCT PROBABLY OLD ABNORMAL ECG RI6.02 Compared to ECG 07/12/2020 07:22:56 First degree AV block now present Left-axis deviation no longer present Myocardial infarct finding still present
[2020-12-12 19:00] VITALS: BP 142/82
[2020-12-12 23:06] VITALS: BP 111/62
[2020-12-13] MEDS: LACTULOSE 20 GM/30 ML SOLUTION. PO SCH ×7 (01:15→22:05)
[2020-12-13 03:00] VITALS: BP 133/72
[2020-12-13 07:00] VITALS: BP 137/77
[2020-12-13 08:15] LABS: BASO % 1 % (0-3); EOS # 0.2 x10^3/uL (0.0-0.7); EOS % 3 % (0-3); HEMATOCRIT 38.4 % (39.0-53.0); HEMOGLOBIN 13.4 g/dL (13.0-17.5); LYMPH # 2.1 x10^3/uL (1.0-4.8); LYMPH % 34 % (24-48); MEAN CORPUSCULAR HEMOGLOBIN 34 pg (25-35); MEAN CORPUSCULAR HGB CONC 35 g/dL (31-37); MEAN CORPUSCULAR VOLUME 96 fL (79-100); MONO # 0.8 x10^3/uL (0.0-1.1); MONO % 12 % (0-9); NEUT # 3.1 x10^3/uL (1.8-7.7); NEUT % 50 % (31-73); PLATELET COUNT 147 x10^3/uL (140-400); RED BLOOD COUNT 4.01 x10^6/uL (4.30-5.70); RED CELL DISTRIBUTION WIDTH 14.5 % (11.5-14.5); WHITE BLOOD COUNT 6.1 x10^3/uL (4.0-11.0)
[2020-12-13] MEDS: LEVOTHYROXINE 112 MCG TABLET PO SCH (08:31)
[2020-12-13] MEDS: PANTOPRAZOLE 40 MG TABLET.DR. PO SCH (08:31)
[2020-12-13] MEDS: METOPROLOL SUCC 24HR ER 25 MG TAB.ER.24H. PO SCH (08:31)
[2020-12-13] MEDS: ASPIRIN ENTERIC COATED 81 MG TABLET.DR. PO SCH (08:31)
[2020-12-13] MEDS: CLOPIDOGREL BISULFATE 75 MG TABLET PO SCH (08:31)
[2020-12-13 08:36] LABS: CALCIUM 8.1 mg/dL (8.5-10.1); GFR 71.9; POTASSIUM 3.7 mmol/L (3.5-5.1)
[2020-12-13] MEDS: HEPARIN for SUB-Q USE 5,000 UNIT/ML VIAL. SQ SCH ×2 (08:44→21:31)
--- NOTE | 2020-12-13 09:19 | PDOC ---
PROGRESS NOTES Date of Service DATE: 12/13/20 TIME: 09:16 Assessment Problems Medical Problems: (1) Acute metabolic encephalopathy Status: Acute (2) Altered mental status Status: Acute (3) Lactic acidosis Status: Acute (4) Witnessed seizure-like activity Status: Acute Seizure, EEG shows slowing of background but no epileptic activity, nocturnal oxygen desaturation shows a single episode of desaturation less than 88%. Lactic acidosis, Elevated troponin Prior right hemispheric strokes with left hemiparesis Hypertension, syncope, atrial fibrillation, hypothyroidism, schizophrenia, and noncompliance in the past. Plan Pulmonary consult, suggest outpatient polysomnogram Cardiac work-up Hold off on starting anticonvulsants I left a message with the patient's son yesterday and again today Subjective No complaints Objective Vital Signs Date Time Temp Pulse Resp B/P (MAP) Pulse Ox O2 Delivery O2 Flow Rate FiO2 12/13/20 08:31 62 137/77 12/13/20 07:00 97.5 18 90 Room Air 97.5 12/12/20 20:00 2.0 Intake and Output 12/13/20 07:00 Intake Total 640 ml Output Total 2 ml Balance 638 ml Intake Oral 640 ml Output Stool Total 2 ml # Voids 5 # Bowel Movements 4 PHYSICAL EXAM Alert. Oriented to time, place and person. PERRL. EOMI. CN: no focal findings. Muscle tone: Increased on left Muscle strength: 4/5 left hemiparesis DTR: 2+ Plantar reflex: Flexor Gait: not examined in bed. Sensory exam: no abnormal findings. No cerebellar signs elicited. Review of Relevant I have reviewed the following items shelly (where applicable) has been applied. Labs Laboratory Tests Test 12/12/20 02:15 12/12/20 06:50 12/12/20 09:54 12/13/20 07:34 White Blood Count 10.9 x10^3/uL (4.0-11.0) 6.1 x10^3/uL (4.0-11.0) Red Blood Count 4.60 x10^6/uL (4.30-5.70) 4.01 x10^6/uL (4.30-5.70) Hemoglobin 15.7 g/dL (13.0-17.5) 13.4 g/dL (13.0-17.5) Hematocrit 44.2 % (39.0-53.0) 38.4 % (39.0-53.0) Mean Corpuscular Volume 96 fL (79-100) 96 fL (79-100) Mean Corpuscular Hemoglobin 34 pg (25-35) 34 pg (25-35) Mean Corpuscular Hemoglobin Concent 35 g/dL (31-37) 35 g/dL (31-37) Red Cell Distribution Width 14.5 % (11.5-14.5) 14.5 % (11.5-14.5) Platelet Count 200 x10^3/uL (140-400) 147 x10^3/uL (140-400) Neutrophils (%) (Auto) 33 % (31-73) 50 % (31-73) Lymphocytes (%) (Auto) 57 % (24-48) 34 % (24-48) Monocytes (%) (Auto) 8 % (0-9) 12 % (0-9) Eosinophils (%) (Auto) 2 % (0-3) 3 % (0-3) Basophils (%) (Auto) 1 % (0-3) 1 % (0-3) Neutrophils # (Auto) 3.6 x10^3/uL (1.8-7.7) 3.1 x10^3/uL (1.8-7.7) Lymphocytes # (Auto) 6.1 x10^3/uL (1.0-4.8) 2.1 x10^3/uL (1.0-4.8) Monocytes # (Auto) 0.9 x10^3/uL (0.0-1.1) 0.8 x10^3/uL (0.0-1.1) Eosinophils # (Auto) 0.2 x10^3/uL (0.0-0.7) 0.2 x10^3/uL (0.0-0.7) Basophils # (Auto) 0.1 x10^3/uL (0.0-0.2) 0.0 x10^3/uL (0.0-0.2) Segmented Neutrophils % 40 % (35-66) Lymphocytes % 48 % (24-48) Atypical Lymphocytes % (Manual) 4 % (0-0) Monocytes % 7 % (0-10) Basophils % 1 % (0-3) Nucleated Red Blood Cells 1 Platelet Estimate Adequate (ADEQUATE) Prothrombin Time 15.1 SEC (11.7-14.0) Prothromb Time International Ratio 1.2 (0.8-1.1) Activated Partial Thromboplast Time 29 SEC (24-38) Sodium Level 140 mmol/L (136-145) 141 mmol/L (136-145) Potassium Level 3.6 mmol/L (3.5-5.1) 3.7 mmol/L (3.5-5.1) Chloride Level 103 mmol/L (98-107) 107 mmol/L (98-107) Carbon Dioxide Level 21 mmol/L (21-32) 24 mmol/L (21-32) Anion Gap 16 (6-14) 10 (6-14) Blood Urea Nitrogen 9 mg/dL (8-26) 4 mg/dL (8-26) Creatinine 1.2 mg/dL (0.7-1.3) 1.0 mg/dL (0.7-1.3) Estimated GFR (Cockcroft-Gault) 58.3 71.9 BUN/Creatinine Ratio 8 (6-20) Glucose Level 144 mg/dL (70-99) 91 mg/dL (70-99) Lactic Acid Level 8.8 mmol/L (0.4-2.0) 2.2 mmol/L (0.4-2.0) Calcium Level 8.8 mg/dL (8.5-10.1) 8.1 mg/dL (8.5-10.1) Magnesium Level 2.3 mg/dL (1.8-2.4) 2.0 mg/dL (1.8-2.4) Total Bilirubin 0.7 mg/dL (0.2-1.0) Aspartate Amino Transf (AST/SGOT) 26 U/L (15-37) Alanine Aminotransferase (ALT/SGPT) 30 U/L (16-63) Alkaline Phosphatase 87 U/L (46-116) Ammonia 126 mcmol/L (11-34) Creatine Kinase 101 U/L (39-308) Creatine Kinase MB (Mass) 0.8 ng/mL (0.0-3.6) Creatine Kinase MB Relative Index 0.8 % (0-4) Troponin I Quantitative < 0.017 ng/mL (0.000-0.055) 0.075 ng/mL (0.000-0.055) 0.088 ng/mL (0.000-0.055) Total Protein 7.9 g/dL (6.4-8.2) Albumin 3.6 g/dL (3.4-5.0) Albumin/Globulin Ratio 0.8 (1.0-1.7) Ethyl Alcohol Level < 10 mg/dL (0-10) Laboratory Tests Test 12/12/20 09:54 12/13/20 07:34 Troponin I Quantitative 0.088 ng/mL (0.000-0.055) White Blood Count 6.1 x10^3/uL (4.0-11.0) Red Blood Count 4.01 x10^6/uL (4.30-5.70) Hemoglobin 13.4 g/dL (13.0-17.5) Hematocrit 38.4 % (39.0-53.0) Mean Corpuscular Volume 96 fL (79-100) Mean Corpuscular Hemoglobin 34 pg (25-35) Mean Corpuscular Hemoglobin Concent 35 g/dL (31-37) Red Cell Distribution Width 14.5 % (11.5-14.5) Platelet Count 147 x10^3/uL (140-400) Neutrophils (%) (Auto) 50 % (31-73) Lymphocytes (%) (Auto) 34 % (24-48) Monocytes (%) (Auto) 12 % (0-9) Eosinophils (%) (Auto) 3 % (0-3) Basophils (%) (Auto) 1 % (0-3) Neutrophils # (Auto) 3.1 x10^3/uL (1.8-7.7) Lymphocytes # (Auto) 2.1 x10^3/uL (1.0-4.8) Monocytes # (Auto) 0.8 x10^3/uL (0.0-1.1) Eosinophils # (Auto) 0.2 x10^3/uL (0.0-0.7) Basophils # (Auto) 0.0 x10^3/uL (0.0-0.2) Sodium Level 141 mmol/L (136-145) Potassium Level 3.7 mmol/L (3.5-5.1) Chloride Level 107 mmol/L (98-107) Carbon Dioxide Level 24 mmol/L (21-32) Anion Gap 10 (6-14) Blood Urea Nitrogen 4 mg/dL (8-26) Creatinine 1.0 mg/dL (0.7-1.3) Estimated GFR (Cockcroft-Gault) 71.9 Glucose Level 91 mg/dL (70-99) Calcium Level 8.1 mg/dL (8.5-10.1) Magnesium Level 2.0 mg/dL (1.8-2.4) Medications Current Medications Sodium Chloride 1,000 ml @ 1,000 mls/hr 1X ONCE IV Last administered on 12/12/20at 03:20; Start 12/12/20 at 03:00; Stop 12/12/20 at 03:59; Status DC Aspirin (Aspirin Chewable) 324 mg 1X ONCE PO ; Start 12/12/20 at 03:15; Stop 12/12/20 at 03:10; Status DC Aspirin (Aspirin Rectal Supp) 300 mg 1X ONCE AR Last administered on 12/12/20at 03:20; Start 12/12/20 at 03:30; Stop 12/12/20 at 03:31; Status DC Sodium Chloride 1,000 ml @ 100 mls/hr 1X ONCE IV Last administered on 12/12/20at 03:34; Start 12/12/20 at 04:00; Stop 12/12/20 at 13:59; Status DC Ondansetron HCl (Zofran) 4 mg PRN Q8HRS PRN IV NAUSEA/VOMITING 1ST CHOICE; Start 12/12/20 at 03:45; Stop 12/13/20 at 03:44; Status DC Lactulose (Lactulose) 30 gm Q4HRS PO Last administered on 12/13/20at 03:49; Start 12/12/20 at 04:30 Lorazepam (Ativan Inj) 1 mg PRN Q4HRS PRN IVP TREMORS; Start 12/12/20 at 04:30; Stop 12/13/20 at 04:29; Status DC Potassium Chloride (Klor-Con) 20 meq 1X ONCE PO Last administered on 12/12/20at 10:11; Start 12/12/20 at 09:30; Stop 12/12/20 at 09:31; Status DC Levothyroxine Sodium (Synthroid) 112 mcg DAILY PO Last administered on 12/13/20at 08:31; Start 12/12/20 at 09:30 Metoprolol Succinate (Toprol Xl) 12.5 mg DAILY PO Last administered on 12/13/20at 08:31; Start 12/12/20 at 09:30 Pantoprazole Sodium (Protonix) 40 mg DAILYAC PO Last administered on 12/13/20at 08:31; Start 12/12/20 at 11:30 Aspirin (Ecotrin) 81 mg DAILYWBKFT PO Last administered on 12/13/20at 08:31; Start 12/12/20 at 09:30 Clopidogrel Bisulfate (Plavix) 75 mg DAILY PO Last administered on 12/13/20at 08:31; Start 12/12/20 at 10:00 Acetaminophen (Tylenol) 650 mg PRN Q6HRS PRN PO MILD PAIN / TEMP > 100.3'F Last administered on 12/12/20at 10:12; Start 12/12/20 at 09:45 Heparin Sodium (Porcine) (Heparin Sodium) 5,000 unit Q12HR SQ Last administered on 12/13/20at 08:44; Start 12/12/20 at 10:00 Menthol/Methyl Salicylate (Bengay Greaseless Cream) 1 belén PRN QID PRN TP MUSCLE PAIN; Start 12/12/20 at 10:15 Active Scripts Active Aspirin Ec (Aspirin) 81 Mg Tablet.dr 81 Mg PO DAILYWBKFT 30 Days Reported Levothyroxine Sodium 112 Mcg Tablet 1 Tab PO DAILY Clopidogrel (Clopidogrel Bisulfate) 75 Mg Tablet 75 Mg PO DAILY Omeprazole 20 Mg Capsule.dr 20 Mg PO DAILY Metoprolol Succinate ( Xl ) (Metoprolol Succinate) 25 Mg Tab.er.24h 0.5 Tab PO DAILY Vitals/I & O Vital Sign - Last 24 Hours 12/12/20 12/12/20 12/12/20 12/12/20 10:12 11:00 15:00 19:00 Temp 98.5 98.6 99.2 98.5 98.6 99.2 Pulse 72 78 88 78 Resp 20 20 20 B/P (MAP) 132/79 130/70 (90) 129/77 (94) 142/82 (102) Pulse Ox 97 98 98 O2 Delivery Nasal Cannula Room Air Room Air 1/18/21 12/12/20 12/13/20 12/13/20 20:00 23:06 03:00 07:00 Temp 98.4 98.1 97.5 98.4 98.1 97.5 Pulse 60 65 62 Resp 20 20 18 B/P (MAP) 111/62 (78) 133/72 (92) 137/77 (97) Pulse Ox 95 96 90 O2 Delivery Nasal Cannula Room Air Room Air Room Air O2 Flow Rate 2.0 12/13/20 08:31 Pulse 62 B/P (MAP) 137/77 Intake and Output 12/12/20 12/12/20 12/13/20 15:00 23:00 07:00 Intake Total 640 ml Output Total 1 ml 1 ml Balance 640 ml -1 ml -1 ml Justicifation of Admission Dx: Justifications for Admission: Justification of Admission Dx: Yes CARLOTA JIANG MD Dec 13, 2020 09:19
--- NOTE | 2020-12-13 09:50 | PDOC ---
IM PROGRESS NOTES- Subjective Subjective Complains of back pain Objective Vitals/I&O Vital Signs Date Time Temp Pulse Resp B/P (MAP) Pulse Ox O2 Delivery O2 Flow Rate FiO2 12/13/20 08:31 62 137/77 12/13/20 07:00 97.5 18 90 Room Air 97.5 12/12/20 20:00 2.0 I & O 12/12/20 12/12/20 12/13/20 15:00 23:00 07:00 Intake Total 640 ml Output Total 1 ml 1 ml Balance 640 ml -1 ml -1 ml Physical Exam Physical Exam GENERAL: The patient is an elderly male who is alert, oriented, forgetful, which is his baseline status and not in acute distress. The patient is hard of hearing. The patient is alert and not in acute distress. LUNGS: Decreased breath sounds at bases. CARDIOVASCULAR: S1, S2 regular. ABDOMEN: Soft, nontender, no guarding, no rigidity. EXTREMITIES: No edema, no cyanosis, no calf tenderness. CENTRAL NERVOUS SYSTEM: The patient has some baseline cognitive deficits, hard of hearing, has left-sided weakness from previous stroke. No new changes noted at this time. SKIN: Warm and dry. There is no cyanosis. LUMBAR SPINE: Some pain on movement. No swelling noted. Labs Laboratory Tests Test 12/12/20 09:54 12/13/20 07:34 Troponin I Quantitative 0.088 ng/mL (0.000-0.055) White Blood Count 6.1 x10^3/uL (4.0-11.0) Red Blood Count 4.01 x10^6/uL (4.30-5.70) L Hemoglobin 13.4 g/dL (13.0-17.5) Hematocrit 38.4 % (39.0-53.0) L Mean Corpuscular Volume 96 fL (79-100) Mean Corpuscular Hemoglobin 34 pg (25-35) Mean Corpuscular Hemoglobin Concent 35 g/dL (31-37) Red Cell Distribution Width 14.5 % (11.5-14.5) Platelet Count 147 x10^3/uL (140-400) Neutrophils (%) (Auto) 50 % (31-73) Lymphocytes (%) (Auto) 34 % (24-48) Monocytes (%) (Auto) 12 % (0-9) H Eosinophils (%) (Auto) 3 % (0-3) Basophils (%) (Auto) 1 % (0-3) Neutrophils # (Auto) 3.1 x10^3/uL (1.8-7.7) Lymphocytes # (Auto) 2.1 x10^3/uL (1.0-4.8) Monocytes # (Auto) 0.8 x10^3/uL (0.0-1.1) Eosinophils # (Auto) 0.2 x10^3/uL (0.0-0.7) Basophils # (Auto) 0.0 x10^3/uL (0.0-0.2) Sodium Level 141 mmol/L (136-145) Potassium Level 3.7 mmol/L (3.5-5.1) Chloride Level 107 mmol/L (98-107) Carbon Dioxide Level 24 mmol/L (21-32) Anion Gap 10 (6-14) Blood Urea Nitrogen 4 mg/dL (8-26) L Creatinine 1.0 mg/dL (0.7-1.3) Estimated GFR (Cockcroft-Gault) 71.9 Glucose Level 91 mg/dL (70-99) Calcium Level 8.1 mg/dL (8.5-10.1) L Magnesium Level 2.0 mg/dL (1.8-2.4) Laboratory Tests 12/13/20 07:34 Laboratory Tests 12/13/20 07:34 Meds Current Medications Medications (Trade) Dose Ordered Sig/Manny Route PRN Reason Start Time Stop Time Status Last Admin Dose Admin Pantoprazole Sodium (Protonix) 40 mg DAILYAC PO 12/12/20 11:30 12/13/20 08:31 Clopidogrel Bisulfate (Plavix) 75 mg DAILY PO 12/12/20 10:00 12/13/20 08:31 Heparin Sodium (Porcine) (Heparin Sodium) 5,000 unit Q12HR SQ 12/12/20 10:00 12/13/20 08:44 Assessment Assessment 1. Seizures. 2. Syncope. 3. Elevated troponin level, CK is normal, possibly due to type 2 demand ischemia. 4. Lactic acidosis, likely due to seizures, resolved with fluids. 5. Back pain. 6. 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 7. Hypertension. 8. History of atrial fibrillation with bradycardia, not a candidate for anticoagulation. 9. History of paroxysmal atrial fibrillation, not a candidate for anticoagulation. 10. Left inguinal hernia. 11. Acquired hypothyroidism. 12. History of schizophrenia. 13. History of noncompliance. PLAN: Possible seizures -consult Dr. Briceno for Neurology evaluation and management, EEG does not show any epileptic activity it does show some slowing. Dr. Baker does not recommend antiepileptics. Elevated troponin, consult Dr. Velasquez for Cardiology evaluation and management. Repeat troponin level and EKG. echocardiogram has been ordered. Low back pain status post fall-consult Dr. Beckett for rehab evaluation and management. X-rays of lumbar and thoracic spine IMPRESSION: 1. Moderate severe chronic appearing L1 compression fracture. This is slightly increased compared to a CT performed 07/12/2020. 2. Multilevel degenerative change throughout the thoracic and lumbar spine, primarily the lumbosacral junction. 3. Lumbar scoliosis. X-rays of pelvis IMPRESSION: 1. Mild bilateral hip osteoarthritis and decreased femoral head-neck offset, suggesting a component of chronic hip impingement. 2. No acute osseous finding Order PT, OT, speech therapy evaluation. Order heparin subcutaneously for DVT prophylaxis. Restart aspirin, Plavix and other home medications. For details, please refer to the orders. Prognosis of this patient is poor due to his multiple medical problems, noncompliance and cognitive deficits. Discussed with Dr. William. Consult psychiatric social worker. Possible discharge home with home health services tomorrow if stable. Plan Plan For more details regarding further plans, please refer to the orders. Justifications for Admission Other Justification ANUM CESPEDES MD Dec 13, 2020 09:50
--- NOTE | 2020-12-13 10:29 | CONS ---
DATE OF CONSULTATION: PULMONARY CONSULTATION ATTENDING PHYSICIAN: Alea Light MD REASON FOR CONSULTATION: Encephalopathy. HISTORY OF PRESENT ILLNESS: The patient is an 80-year-old male who has history of CVA, history of cognitive deficits. He was found on the floor and reportedly had seizures. The patient does not have any recollection of what happened. He does remember that he blacked out. Currently, he is fully awake, follows commands. Denies any shortness of breath. He has no significant tobacco history. The patient underwent a CT of the head. There was unchanged right hemispheric encephalomalacia. The patient had an elevated lactic acid level of 8.8, which is now down to 2.2. No fevers. Chest x-ray did not reveal any acute infiltrates. He is currently on room air. PAST MEDICAL HISTORY: Significant for history of hypertension, GERD, history of atrial fibrillation, old cerebrovascular accident with right frontoparietal and occipital stroke and left sided weakness, left inguinal hernia, hypothyroidism, schizophrenia and noncompliance, history of paroxysmal atrial fibrillation, not a candidate for anticoagulation, history of mitral regurgitation, normal ejection fraction. PAST SURGICAL HISTORY: As listed in H and P. SOCIAL HISTORY: No history of tobacco use. ALLERGIES: All reviewed as listed in the MRAD. MEDICATIONS: All reviewed as listed in the MRAD. REVIEW OF SYSTEMS: A 10-point system obtained. Pertinent positives discussed in my history of present illness, otherwise noncontributory. All systems that were negative were reviewed as well. PHYSICAL EXAMINATION: VITAL SIGNS: Reviewed. On room air 90% saturation. Blood pressure is stable. NECK: Supple. LUNGS: Clear. CARDIOVASCULAR: With a regular rate. ABDOMEN: Soft. EXTREMITIES: With no pitting edema. LABORATORY DATA: Reviewed. Lactic acid is now 2.2. Troponin 0.088. BUN and creatinine normal. INR 1.2. White cell count 6.1. IMPRESSION: 1. Acute metabolic encephalopathy secondary to postictal state from seizure. Clinically resolved. Mental status is improved. 2. Lactic acidosis secondary to seizure. Now almost resolved. No signs of sepsis. 3. Clear chest x-ray. RECOMMENDATIONS: 1. From a pulmonary standpoint, he is stable. He is on room air. His lungs are clear and his chest x-ray does not show any acute infiltrates; perhaps tiny left basal atelectasis. 2. Discussed with Alea Light. I have no further recommendations and we will see him on a p.r.n. basis. For now, we will sign off. Please do not hesitate to call us for any further need. YULISSA LOYOLA MD DR: Nancy JOB#: [id number] / [id number] BATSHEVA
[2020-12-13 11:00] VITALS: BP 110/52
--- NOTE | 2020-12-13 11:34 | NUR ---
TAMELA following for discharge planning. Spoke with RN and reviewed chart. Pt now on room air. ID consulted. PT recommendation is SNU. Referral faxed to [facility] per approval from pt's son. Patient choice of vendor form completed. TAMELA following. Addendum: 12/13/20 at 1136 by LORY RAPP SW requested COVID swab for placement. Addendum: 12/13/20 at 1608 by LORY RAPP Pt accepted at [facility] per Danielle in admissions.
[2020-12-13] MEDS ORDERED: PERFLUTREN PROTEIN-A MICROSPHR 0.22 MG/ML 3 ML VIAL. IV ONE ×2 (11:45→15:00)
[2020-12-13] MEDS ORDERED: tiZANidine 4 MG TABLET. PO PRN (14:30)
--- NOTE | 2020-12-13 14:57 | PDOC ---
CARDIO Progress Notes Date and Time Date of Service 12/13/2020 Time of Evaluation 1115 Subjective Subjective: No Chest Pain, No shortness of breath, No Palpitations Vitals Vitals Vital Signs Date Time Temp Pulse Resp B/P (MAP) Pulse Ox O2 Delivery O2 Flow Rate FiO2 12/13/20 11:00 97.4 59 18 110/52 (71) 95 Room Air 97.4 12/12/20 20:00 2.0 Weight Weight [ ] Input and Output Intake and Output Intake and Output 12/13/20 07:00 Intake Total 640 ml Output Total 2 ml Balance 638 ml Intake Oral 640 ml Output Stool Total 2 ml # Voids 5 # Bowel Movements 4 Laboratory Labs Laboratory Tests Test 12/13/20 07:34 White Blood Count 6.1 x10^3/uL (4.0-11.0) Red Blood Count 4.01 x10^6/uL (4.30-5.70) Hemoglobin 13.4 g/dL (13.0-17.5) Hematocrit 38.4 % (39.0-53.0) Mean Corpuscular Volume 96 fL (79-100) Mean Corpuscular Hemoglobin 34 pg (25-35) Mean Corpuscular Hemoglobin Concent 35 g/dL (31-37) Red Cell Distribution Width 14.5 % (11.5-14.5) Platelet Count 147 x10^3/uL (140-400) Neutrophils (%) (Auto) 50 % (31-73) Lymphocytes (%) (Auto) 34 % (24-48) Monocytes (%) (Auto) 12 % (0-9) Eosinophils (%) (Auto) 3 % (0-3) Basophils (%) (Auto) 1 % (0-3) Neutrophils # (Auto) 3.1 x10^3/uL (1.8-7.7) Lymphocytes # (Auto) 2.1 x10^3/uL (1.0-4.8) Monocytes # (Auto) 0.8 x10^3/uL (0.0-1.1) Eosinophils # (Auto) 0.2 x10^3/uL (0.0-0.7) Basophils # (Auto) 0.0 x10^3/uL (0.0-0.2) Sodium Level 141 mmol/L (136-145) Potassium Level 3.7 mmol/L (3.5-5.1) Chloride Level 107 mmol/L (98-107) Carbon Dioxide Level 24 mmol/L (21-32) Anion Gap 10 (6-14) Blood Urea Nitrogen 4 mg/dL (8-26) Creatinine 1.0 mg/dL (0.7-1.3) Estimated GFR (Cockcroft-Gault) 71.9 Glucose Level 91 mg/dL (70-99) Calcium Level 8.1 mg/dL (8.5-10.1) Magnesium Level 2.0 mg/dL (1.8-2.4) Physical Exam HEENT: Neck Supple W Full Motion Chest: Symmetric Heart: RRR (SR) Abdomen: Soft N/T Extremities: No Edema Neurology: alert, oriented, follow commands Assessment Assessment 1. Metabolic encephalopathy with likely from postictal state: mentation better 2. Seizure 3. Lactic acidosis 4. Mild troponin elevation; highest 0.08. EKG with no acute changes. Suspect type II, demand ischemia. Likely r/t to seizure. Recent MPI 01/2020 without ischemia 5. HTN: controlled 6. Chronic LBBB 7. PAFIB; presently SR without ectopies 8. Hypothyroidism: on replacement 9. H/o CVA 10. H/o Noncompliance Recommendations 1. Continue ASA and metoprolol 2. Follow neurology recommendation 3. TTE pending today 4. Supportive care 5. Encouraged to follow up in office Justicifation of Admission Dx: Justifications for Admission: Justification of Admission Dx: Yes BRANT STANLEY APRN Dec 13, 2020 14:57
[2020-12-13 15:00] VITALS: BP 140/67
--- NOTE | 2020-12-13 15:08 | CARD ---
MR#: [id number] Date of Study: 12/13/2020 Ordering Physician: TATA THURMAN, Referring Physician: TATA THURMAN, Tech: Cary Bajwa [facility] APPROVED REPORT EXAM: Two-dimensional and M-mode echocardiogram with Doppler and color Doppler. Other Information Quality : LimitedHR: 58bpm Rhythm : NSRTechnically limited study due to smoking, CVA unable to turn INDICATION CVA/TIA Echo Enhancing Agent Indication: Endocardial border delineation Agent/Amount Used: Optison 3mL RISK FACTORS Hypertension Smoking 2D DIMENSIONS RVDd3.2 (2.9-3.5cm)Left Atrium(2D)3.3 (1.6-4.0cm) IVSd1.2 (0.7-1.1cm)Aortic Root(2D)3.5 (2.0-3.7cm) LVDd3.9 (3.9-5.9cm)LVOT Diameter2.3 (1.8-2.4cm) PWd1.1 (0.7-1.1cm)LVDs3.1 (2.5-4.0cm) FS (%) 20.3 %SV28.6 ml LVEF(%)42.1 (>50%) Aortic Valve AoV Peak David.112.9cm/sAoV VTI19.0cm AO Peak GR.5.1mmHgLVOT Peak David.97.8cm/s LVOT VTI 21.78cmAO Mean GR.2mmHg AMY (VMAX)2.20sc1ARB (VTI)4.57cm2 Mitral Valve MV E Msgxwoir44.5cm/sMV DECEL PPFW590kp MV A Grbunzol46.1cm/sMV HMV88nr E/A Ratio1.3MVA (PHT)3.48cm2 TDI E/Lateral E'5.0E/Medial E'4.8 Pulmonary Valve PV Peak Euqtdglf147.6cm/sPV Peak Grad.6mmHg Tricuspid Valve TR P. Uyctptdb594ak/sTR Peak Gr.19mmHg LEFT VENTRICLE The left ventricle is normal size. There is borderline to mild concentric left ventricular hypertroph y. The left vebtrucular systolic function is normal. The ejection fraction is 55-60%. There is normal LV segmental wall motion. Transmitral Doppler flow pattern is Grade I-abnormal relaxation pattern. RIGHT VENTRICLE The right ventricle is normal size. There is normal right ventricular wall thickness. The right ventr icular systolic function is normal. ATRIA The left atrium size is normal. The right atrium size is normal. The interatrial septum is intact wit h no evidence for an atrial septal defect or patent foramen ovale as noted on 2-D or Doppler imaging. AORTIC VALVE The aortic valve is normal in structure and function. Doppler and Color Flow revealed no significant aortic regurgitation. There is no significant aortic valvular stenosis. There is no aortic valvular v egetation. MITRAL VALVE The mitral valve is normal in structure and function. There is no evidence of mitral valve prolapse. There is no mitral valve stenosis. Doppler and Color Flow revealed mild mitral regurgitation. TRICUSPID VALVE The tricuspid valve is normal in structure and function. Doppler and Color Flow revealed trace tricus pid regurgitation. Estimated PAP 25 mmHg. There is no tricuspid valve stenosis. PULMONIC VALVE The pulmonary valve is normal in structure and function. Doppler and Color Flow revealed no pulmonic valvular regurgitation. GREAT VESSELS The aortic root is normal in size. The ascending aorta is normal in size. The IVC is normal in size a nd collapses >50% with inspiration. PERICARDIAL EFFUSION There is no evidence of significant pericardial effusion. Critical Notification Critical Value: No <Conclusion> The left vebtrucular systolic function is normal. The ejection fraction is 55-60%. There is normal LV segmental wall motion. Mild mitral regurgitation. Trace tricuspid regurgitation. Estimated PAP 25 mmHg. There is no evidence of significant pericardial effusion. Signed by : Navi Velasquez, Electronically Approved : 12/13/2020 15:07:54
[2020-12-13] MEDS: LIDOCAINE (700MG/PATCH) PATCH. TD SCH (16:57)
[2020-12-13 19:00] VITALS: BP 137/73
--- NOTE | 2020-12-13 19:40 | CONS ---
DATE OF CONSULTATION: 12/13/2020 LOCATION: He is in room 500. ATTENDING PHYSICIAN: Dr. Alea Light. REASON FOR CONSULTATION: The patient was seen at the request of Dr. Light for rehab evaluation. HISTORY OF PRESENT ILLNESS: This is an 80-year-old right-handed male with known cerebrovascular accident about 10 years ago with residual spastic left upper extremity weakness and contractures of his left hand fingers and left wrist in a position of flexion. The patient was admitted on 12/12/2020 after he apparently blacked out and was found on the floor and questionable seizures. The patient admits some muscle strain pain over right side of his mid back area. He had x-rays of lumbar, cervical and thoracic vertebrae and CT scans, which revealed no acute finding except moderately severe chronic appearing L1 vertebral body compression fracture, may be slightly increased when compared to CT scan done on 07/12/2020, multilevel degenerative changes in thoracic, lumbar and cervical vertebrae and lumbar and cervical spondylosis and lumbar scoliosis. The patient as per nursing staff has been getting up without any significant back pain complaints. The patient with known cholecystitis, for which he was admitted in 06/2020, underwent laparoscopic cholecystectomy, also with known hypertension, gastroesophageal reflux disease, atrial fibrillation with bradycardia, left inguinal hernia, acquired hypothyroidism, schizophrenia, history of noncompliance, decreased acuity of hearing, paroxysmal atrial fibrillation, not a candidate for anticoagulation, allergic rhinitis, pulmonary hypertension, mitral regurgitation, mild tricuspid regurgitation, previous ejection fraction of 60-65%. ALLERGIES: HE IS KNOWN ALLERGIC TO CHLORPHENIRAMINE, OXYMETAZOLINE, PHENIRAMINE, PHENYLEPHRINE, PSEUDOEPHEDRINE. The patient had a caregiver at home. PHYSICAL EXAMINATION: Today revealed an elderly male. He is awake, oriented to place and person, follows commands appropriately, moves all 4 extremities voluntarily where he had 4/5 to 4+/5 grade muscle strength with relatively increased weakness in left shoulder abductors and he had flexion contractures of his left hand fingers and left wrist. He had crepitus on range of motion of both knee joints without any obvious knee joint effusion. He had minimal tenderness to palpation over right lower thoracic paraspinal muscles. No significant tenderness to palpation over thoracic or lumbar spine area. Straight leg raising test is negative bilaterally. No significant pain on range of motion of his hip joints. He had some stiffness of left shoulder joint. He had clinical evidence of chronic venous insufficiency of distal parts of both lower extremities. He is independent, rolling from side to side. I have not tested his transfers or ambulation skills at this time. ASSESSMENT: Elderly male with recent fall after questionable seizure episode with thoracolumbar sprain with mild increase in L1 vertebral body compression fracture as per CT scan. No clinical evidence of thoracic or lumbar radiculopathy, also degenerative joint disease and degenerative disk disease changes in the cervical and lumbar vertebrae without any significant pain. No clinical evidence of cervical or lumbar spinal stenosis. He had clinical evidence of peripheral neuropathy with absent ankle jerks and also chronic lower extremity venous insufficiency, old cerebrovascular accident with residual spastic left upper extremity weakness with contractures of his left shoulder and left hand fingers and left wrist. The patient with known hypertension, gastroesophageal reflux disease, atrial fibrillation, bradycardia, schizophrenia, decreased acuity of hearing, allergic rhinitis, pulmonary hypertension, mitral regurgitation, mild tricuspid regurgitation. RECOMMENDATIONS: To try physical modalities, to consider lumbar support if the pain is interfering with his mobility at present time, if not home when medically stable with home health or outpatient followup. Dr. Light, appreciate asking me to participate in the care of this interesting patient. I will be glad to see him for a followup with you on as needed basis. NINO MENDEZ MD DR: YUSRA/elan JOB#: [id number] / [id number]
[2020-12-13] MEDS ORDERED: PATCH REMOVAL. MC SCH (21:00)
[2020-12-13 23:00] VITALS: BP 129/70
[2020-12-14 03:00] VITALS: BP 130/74
[2020-12-14] MEDS: LACTULOSE 20 GM/30 ML SOLUTION. PO SCH ×3 (03:22→12:00)
[2020-12-14 07:00] VITALS: BP 126/63
[2020-12-14] MEDS ORDERED: METH57CR17 TP (09:12)
[2020-12-14] MEDS ORDERED: LIDO700A21 TD (09:12)
[2020-12-14] MEDS ORDERED: ACET325T9 PO (09:12)
--- NOTE | 2020-12-14 09:14 | SNU/HH DC ---
DISCHARGE ORDERS DISCHARGE INFORMATION: FINAL DIAGNOSIS Problems Medical Problems: (1) Acute metabolic encephalopathy Status: Acute (2) Altered mental status Status: Acute (3) Lactic acidosis Status: Acute (4) Witnessed seizure-like activity Status: Acute CONDITION ON DISCHARGE: Stable PRISON: SNF STAY <30 DAYS: Yes POST DISCHARGE ORDERS: ACTIVITY ORDERS: Activity as tolerated (With walker/PT supervision) WEIGHT BEARING STATUS: Full weight bearing, As tolerated BATHING ORDERS: No Tub Bath until see DIET AFTER DISCHARGE: Cardiac WOUND/INCISION CARE: Change dressing OTHER ORDERS: Fall precautions CHECKS AFTER DISCHARGE: CHECKS AFTER DISCHARGE: Check blood press - daily FOLLOW-UP: PHYSICIAN FOLLOW-UP: Dr.Pratip Cespedes in 5 days after discharge from [place]. LAB ORDERS FOR FOLLOW-UP: CBC,CMP weekly for 3 weeks TREATMENT/EQUIPMENT ORDERS: ADAPTIVE EQUIPMENT NEEDED: None Physical Therapy For: Evalulation/Treatment Occupational Therapy For: Evaluation/Treatment DISCHARGE MEDICATIONS: Home Meds Active Scripts Aspirin (ASPIRIN EC) 81 Mg Tablet., 81 MG PO DAILYWBKFT for CVA for 30 Days, #30 TAB.SR Prov:ANUM CESPEDES MD 02/17/20 Reported Medications Levothyroxine Sodium (LEVOTHYROXINE SODIUM) 112 Mcg Tablet, 1 TAB PO DAILY for thyroid 12/12/20 Clopidogrel Bisulfate (CLOPIDOGREL) 75 Mg Tablet, 75 MG PO DAILY for anticoagulation 02/17/20 Omeprazole (OMEPRAZOLE) 20 Mg Capsule., 20 MG PO DAILY for GERD 02/17/20 Metoprolol Succinate (METOPROLOL SUCCINATE ( XL )) 25 Mg Tab.er.24h, 0.5 TAB PO DAILY, #30 TAB 5 Refills 03/28/18 Discontinued Reported Medications Levothyroxine Sodium (LEVOTHYROXINE SODIUM) 100 Mcg Tablet, 100 MCG PO DAILY for hypothyroidism 02/17/20 ANUM CESPEDES MD Dec 14, 2020 09:14
--- NOTE | 2020-12-14 09:22 | PDOC3 ---
IM DISCHARGE SUMMARY Date of Admission Date of Admission Date of Admission: Dec 12, 2020 at 03:55 Date of Discharge Date of Discharge December 14, 2020 Primary Diagnosis Primary Diagnosis 1. Seizures. 2. Syncope. 3. Elevated troponin level, CK is normal, possibly due to type 2 demand ischemia. 4. Lactic acidosis, likely due to seizures, resolved with fluids. 5. Back pain. 6. 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 7. Hypertension. 8. History of atrial fibrillation with bradycardia, not a candidate for anticoagulation. 9. History of paroxysmal atrial fibrillation, not a candidate for anticoagulation. 10. Left inguinal hernia. 11. Acquired hypothyroidism. 12. History of schizophrenia. 13. History of noncompliance. 14. Old L1 compression fracture 15. Osteoarthritis of multiple joints. Consults Consults Fran Small MD; Navi Velasquez MD; Drew William MD; Kena Martinez MD Labs Labs Laboratory Tests Test 12/13/20 13:00 Coronavirus (PCR) Not detected (Not Detected) Brief hospital course Brief hospital course This 80-year-old male, who has a history of cerebrovascular accident and cognitive deficits, states that he was sleeping in his bed and he found himself on the floor and as per son, he had seizures. 911 was called and he was brought to the Emergency Room. The patient does not remember the seizures, but does remember that he blacked out. He denies any chest pains, palpitations, cold, cough, congestion, dyspnea or dizziness. He is a poor historian. He does complain of pain in his back towards the lower back. He states that this is because of his fall. He denies any head trauma. He denies any dysuria, fever, chills, cold or cough. He is a poor historian. In the Emergency Room, CT scan of head and neck showed unchanged right hemispheric encephalomalacia due to previous stroke. No acute abnormalities of the cervical spine. Chest x-ray did not show any acute changes. WBC count was 10.9, hemoglobin 15.7, polys 33, lymphocytes 57. Sodium 140, potassium 3.6, BUN 9, creatinine 1.2. CK was 101, total protein 7.9, albumin 3.6. Initial lactic acid was 8.8 and then repeat was 2.2. Ammonia level 126. Troponin level initially was 0.017, repeat was 0.075. Alcohol level was less than 10. Because of the lactic acidosis was felt to be due to seizures, the patient was given IV fluids and his repeat lactic acid level is 2.2. Because of the possible seizures and syncope, the patient has been admitted for further evaluation and management. For more details regarding the past history, family history, social history, surgical history and other details, please refer to History and Physical. Possible seizures -consult Dr. Briceno for Neurology evaluation and management, EEG does not show any epileptic activity it does show some slowing. Dr. Baker does not recommend antiepileptics. Elevated troponin, consult Dr. Velasquez for Cardiology evaluation and management. This is most likely due to type II demand ischemia and seizures. Echocardiogram December 13, 2020 The left vebtrucular systolic function is normal. The ejection fraction is 55-60%. There is normal LV segmental wall motion. Mild mitral regurgitation. Trace tricuspid regurgitation. Estimated PAP 25 mmHg. There is no evidence of significant pericardial effusion. Low back pain status post fall-consult for rehab evaluation and management. X-rays of lumbar and thoracic spine IMPRESSION: 1. Moderate severe chronic appearing L1 compression fracture. This is slightly increased compared to a CT performed 07/12/2020. 2. Multilevel degenerative change throughout the thoracic and lumbar spine, primarily the lumbosacral junction. 3. Lumbar scoliosis. X-rays of pelvis IMPRESSION: 1. Mild bilateral hip osteoarthritis and decreased femoral head-neck offset, suggesting a component of chronic hip impingement. 2. No acute osseous finding Discussed with Compression fracture of L1 is old. Order PT, OT, speech therapy evaluation. Physical therapy has recommended that the patient goes to a group home unit. Transfer patient to group home unit. Order heparin subcutaneously for DVT prophylaxis. Restart aspirin, Plavix and other home medications. For details, please refer to the orders. Condition at the time of discharge is much better. Prognosis of this patient is poor due to his multiple medical problems, noncompliance and cognitive deficits. . Medications Current Medications Medications (Trade) Dose Ordered Sig/Manny Route PRN Reason Start Time Stop Time Status Last Admin Dose Admin Perflutren Protein Type A Microsphe (Optison) 0.66 mg 1X ONCE IV 12/13/20 15:00 12/13/20 15:01 DC 12/13/20 14:53 Medications reviewed and reconciled for discharge. Allergy Allergies Coded Allergies Type Severity Reaction Last Updated Verified chlorpheniramine Allergy Intermediate 07/03/16 Yes oxymetazoline Allergy Intermediate 07/03/16 Yes pheniramine Allergy Intermediate 07/03/16 Yes phenylephrine Allergy Intermediate 07/03/16 Yes pseudoephedrine Allergy Intermediate 07/03/16 Yes Follow up in 5 days. DISPOSITION: Assisted facility Comments Discharge Management - 35 minutes. For other details please refer to discharge instructions Justicifation of Admission Dx: Justifications for Admission: Justification of Admission Dx: Yes ANUM CESPEDES MD Dec 14, 2020 09:22
[2020-12-14] MEDS: ASPIRIN ENTERIC COATED 81 MG TABLET.DR. PO SCH (09:32)
[2020-12-14] MEDS: LIDOCAINE (700MG/PATCH) PATCH. TD SCH (09:32)
[2020-12-14] MEDS: PANTOPRAZOLE 40 MG TABLET.DR. PO SCH (09:33)
[2020-12-14] MEDS: METOPROLOL SUCC 24HR ER 25 MG TAB.ER.24H. PO SCH (09:35)
[2020-12-14] MEDS: CLOPIDOGREL BISULFATE 75 MG TABLET PO SCH (09:36)
[2020-12-14] MEDS: LEVOTHYROXINE 112 MCG TABLET PO SCH (09:37)
[2020-12-14] MEDS: HEPARIN for SUB-Q USE 5,000 UNIT/ML VIAL. SQ SCH (09:42)
--- NOTE | 2020-12-14 10:09 | PDOC ---
PROGRESS NOTES Date of Service DATE: 12/14/20 TIME: 10:06 Subjective Subjective No new complaints. Objective Objective Vital Signs Date Time Temp Pulse Resp B/P (MAP) Pulse Ox O2 Delivery O2 Flow Rate FiO2 12/14/20 09:35 62 126/63 12/14/20 07:00 97.4 16 97 Room Air 97.4 12/12/20 20:00 2.0 Intake and Output 12/14/20 07:00 Intake Total 600 ml Balance 600 ml Intake Oral 600 ml # Voids 8 # Bowel Movements 10 Physical Exam Physical Exam He did get up and walked with a cane per 25' with physical therapy yesterday and therapy recommends SNF transfer but he wants to go home. Back pain is tolerable. Assessment Assessment Problems Medical Problems: (1) Acute metabolic encephalopathy Status: Acute (2) Altered mental status Status: Acute (3) Lactic acidosis Status: Acute (4) Witnessed seizure-like activity Status: Acute Plan Plan of Care To SNF if he agrees, otherwise to home with home health follow up when medically stable. Comment Review of Relevant I have reviewed the following items shelly (where applicable) has been applied. Labs Laboratory Tests Test 12/13/20 07:34 12/13/20 13:00 White Blood Count 6.1 x10^3/uL (4.0-11.0) Red Blood Count 4.01 x10^6/uL (4.30-5.70) Hemoglobin 13.4 g/dL (13.0-17.5) Hematocrit 38.4 % (39.0-53.0) Mean Corpuscular Volume 96 fL (79-100) Mean Corpuscular Hemoglobin 34 pg (25-35) Mean Corpuscular Hemoglobin Concent 35 g/dL (31-37) Red Cell Distribution Width 14.5 % (11.5-14.5) Platelet Count 147 x10^3/uL (140-400) Neutrophils (%) (Auto) 50 % (31-73) Lymphocytes (%) (Auto) 34 % (24-48) Monocytes (%) (Auto) 12 % (0-9) Eosinophils (%) (Auto) 3 % (0-3) Basophils (%) (Auto) 1 % (0-3) Neutrophils # (Auto) 3.1 x10^3/uL (1.8-7.7) Lymphocytes # (Auto) 2.1 x10^3/uL (1.0-4.8) Monocytes # (Auto) 0.8 x10^3/uL (0.0-1.1) Eosinophils # (Auto) 0.2 x10^3/uL (0.0-0.7) Basophils # (Auto) 0.0 x10^3/uL (0.0-0.2) Sodium Level 141 mmol/L (136-145) Potassium Level 3.7 mmol/L (3.5-5.1) Chloride Level 107 mmol/L (98-107) Carbon Dioxide Level 24 mmol/L (21-32) Anion Gap 10 (6-14) Blood Urea Nitrogen 4 mg/dL (8-26) Creatinine 1.0 mg/dL (0.7-1.3) Estimated GFR (Cockcroft-Gault) 71.9 Glucose Level 91 mg/dL (70-99) Calcium Level 8.1 mg/dL (8.5-10.1) Magnesium Level 2.0 mg/dL (1.8-2.4) Coronavirus (PCR) Not detected (Not Detected) Laboratory Tests Test 12/13/20 13:00 Coronavirus (PCR) Not detected (Not Detected) Medications Current Medications Sodium Chloride 1,000 ml @ 1,000 mls/hr 1X ONCE IV Last administered on 12/12/20at 03:20; Start 12/12/20 at 03:00; Stop 12/12/20 at 03:59; Status DC Aspirin (Aspirin Chewable) 324 mg 1X ONCE PO ; Start 12/12/20 at 03:15; Stop 12/12/20 at 03:10; Status DC Aspirin (Aspirin Rectal Supp) 300 mg 1X ONCE [place] Last administered on 12/12/20at 03:20; Start 12/12/20 at 03:30; Stop 12/12/20 at 03:31; Status DC Sodium Chloride 1,000 ml @ 100 mls/hr 1X ONCE IV Last administered on 12/12/20at 03:34; Start 12/12/20 at 04:00; Stop 12/12/20 at 13:59; Status DC Ondansetron HCl (Zofran) 4 mg PRN Q8HRS PRN IV NAUSEA/VOMITING 1ST CHOICE; Start 12/12/20 at 03:45; Stop 12/13/20 at 03:44; Status DC Lactulose (Lactulose) 30 gm Q4HRS PO Last administered on 12/13/20at 13:11; Start 12/12/20 at 04:30 Lorazepam (Ativan Inj) 1 mg PRN Q4HRS PRN IVP TREMORS; Start 12/12/20 at 04:30; Stop 12/13/20 at 04:29; Status DC Potassium Chloride (Klor-Con) 20 meq 1X ONCE PO Last administered on 12/12/20at 10:11; Start 12/12/20 at 09:30; Stop 12/12/20 at 09:31; Status DC Levothyroxine Sodium (Synthroid) 112 mcg DAILY PO Last administered on 12/14/20at 09:37; Start 12/12/20 at 09:30 Metoprolol Succinate (Toprol Xl) 12.5 mg DAILY PO Last administered on 12/14/20at 09:35; Start 12/12/20 at 09:30 Pantoprazole Sodium (Protonix) 40 mg DAILYAC PO Last administered on 12/14/20at 09:33; Start 12/12/20 at 11:30 Aspirin (Ecotrin) 81 mg DAILYWBKFT PO Last administered on 12/14/20at 09:32; St art 12/12/20 at 09:30 Clopidogrel Bisulfate (Plavix) 75 mg DAILY PO Last administered on 12/14/20at 09:36; Start 12/12/20 at 10:00 Acetaminophen (Tylenol) 650 mg PRN Q6HRS PRN PO MILD PAIN / TEMP > 100.3'F Last administered on 12/12/20at 10:12; Start 12/12/20 at 09:45 Heparin Sodium (Porcine) (Heparin Sodium) 5,000 unit Q12HR SQ Last administered on 12/14/20at 09:42; Start 12/12/20 at 10:00 Menthol/Methyl Salicylate (Bengay Greaseless Cream) 1 jacinta PRN QID PRN TP MUSCLE PAIN; Start 12/12/20 at 10:15 Perflutren Protein Type A Microsphe (Optison) 0.66 mg STK-MED ONCE IV ; Start 12/13/20 at 11:45; Stop 12/13/20 at 11:45; Status DC Tizanidine HCl (Zanaflex) 4 mg PRN Q8HRS PRN PO MUSCLE SPASMS; Start 12/13/20 at 14:30 Lidocaine (Lidoderm) 1 patch DAILY TD Last administered on 12/14/20at 09:32; Start 12/13/20 at 15:00 Miscellaneous (Lidoderm Patch Removal) 1 ea QHS MC ; Start 12/13/20 at 21:00 Perflutren Protein Type A Microsphe (Optison) 0.66 mg 1X ONCE IV Last administered on 12/13/20at 14:53; Start 12/13/20 at 15:00; Stop 12/13/20 at 15:01; Status DC Active Scripts Active Lidocaine PATCH (Lidocaine) 1 Each Adh..patch 1 Patch TD DAILY 30 Days Bengay Greaseless Cream (Methyl Salicylate/Menthol) 57 Gm Cream..g. 1 Jacinta TP PRN QID PRN 15 Days Tylenol (Acetaminophen) 325 Mg Tablet 650 Mg PO PRN Q6HRS PRN 30 Days Aspirin Ec (Aspirin) 81 Mg Tablet. 81 Mg PO DAILYWBKFT 30 Days Reported Levothyroxine Sodium 112 Mcg Tablet 1 Tab PO DAILY Clopidogrel (Clopidogrel Bisulfate) 75 Mg Tablet 75 Mg PO DAILY Omeprazole 20 Mg Capsule. 20 Mg PO DAILY Metoprolol Succinate ( Xl ) (Metoprolol Succinate) 25 Mg Tab.er.24h 0.5 Tab PO DAILY Vitals/I & O Vital Sign - Last 24 Hours 12/13/20 12/13/20 12/13/20 12/13/20 11:00 15:00 19:00 19:00 Temp 97.4 98.5 98.6 97.4 98.5 98.6 Pulse 59 59 62 Resp 18 16 18 B/P (MAP) 110/52 (71) 140/67 (91) 137/73 (94) Pulse Ox 95 96 98 O2 Delivery Room Air Room Air Room Air Room Air 12/13/20 12/14/20 12/14/20 12/14/20 23:00 03:00 07:00 09:35 Temp 97.8 98.7 97.4 97.8 98.7 97.4 Pulse 65 67 53 62 Resp 18 18 16 B/P (MAP) 129/70 (89) 130/74 (92) 126/63 (84) 126/63 Pulse Ox 97 98 97 O2 Delivery Room Air Room Air Room Air Intake and Output 12/13/20 12/13/20 12/14/20 15:00 23:00 07:00 Intake Total 480 ml 120 ml Balance 480 ml 120 ml Justifications for Admission Other Justification NINO MENDEZ MD Dec 14, 2020 10:09
--- NOTE | 2020-12-14 10:43 | NUR ---
SW following for discharge planning. Spoke with RN and reviewed chart. Pt's COVID result negative. Pt on room air. [facility]. Pt to transfer today at 1300 per Danielle from the facility. Son notified. Discharge orders faxed. RN to call report. Packet of clinicals ready to be sent with pt. No further SW needs at this time. Addendum: 12/14/20 at 1254 by LORY RAPP SW notified pt's son Oneil this morning of discharge to [facility] at 1300. Pt's other son Torsten arrived at the hospital this afternoon, as pt refusing discharge to [facility]. SW cancelled transport from [facility]. Pt agreeable to . Pt stated no preference in HH provider. Patient choice of vendor form completed. HH orders requested. Pt has [employer]. Referral faxed to [facility] as they take pt's insurance. Addendum: 12/15/20 at 1152 by LORY RAPP Spoke with Bety from [facility] and they have received orders and start of care will be 12/16. No further SW needs at this time.
[2020-12-14 11:00] VITALS: BP 108/59
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
--- NOTE | 2020-12-14 12:45 | RESP ---
DATE OF SERVICE: 12/12/2020 NOCTURNAL OXIMETRY STUDY INTERPRETATION: The patient's mean oxygen saturation remained around 96% with the lowest of 80%. Only 0.8% of time, oxygen saturation remained less than 90%. IMPRESSION: No clinically significant nocturnal hypoxia. RECOMMENDATION: If clinical suspicion for sleep apnea is high, then consider doing polysomnogram. YULISSA LOYOLA MD DR: LALITA/elan JOB#: [id number] / [id number]
--- NOTE | 2020-12-14 13:03 | PDOC ---
PROGRESS NOTES Date of Service DATE: 12/14/20 TIME: 13:01 Assessment Problems Medical Problems: (1) Acute metabolic encephalopathy Status: Acute (2) Altered mental status Status: Acute (3) Lactic acidosis Status: Acute (4) Witnessed seizure-like activity Status: Acute Seizure, EEG shows slowing of background but no epileptic activity, nocturnal oxygen desaturation shows a single episode of desaturation less than 88%. Lactic acidosis, Elevated troponin Prior right hemispheric strokes with left hemiparesis Hypertension, syncope, atrial fibrillation, hypothyroidism, schizophrenia, and noncompliance in the past. Plan Pulmonary consult Outpatient polysomnogram Cardiac work-up Hold off on starting anticonvulsants Subjective No complaints, wants to go home Objective Vital Signs Date Time Temp Pulse Resp B/P (MAP) Pulse Ox O2 Delivery O2 Flow Rate FiO2 12/14/20 11:00 98.2 55 16 108/59 (75) 96 98.2 12/14/20 08:00 Room Air Intake and Output 12/14/20 07:00 Intake Total 600 ml Balance 600 ml Intake Oral 600 ml # Voids 8 # Bowel Movements 10 PHYSICAL EXAM Alert. Oriented to time, place and person. PERRL. EOMI. CN: no focal findings. Muscle tone: Increased on left Muscle strength: 4/5 left hemiparesis DTR: 2+ Plantar reflex: Flexor Gait: not examined in bed. Sensory exam: no abnormal findings. No cerebellar signs elicited. Review of Relevant I have reviewed the following items shelly (where applicable) has been applied. Labs Laboratory Tests Test 12/13/20 07:34 12/13/20 13:00 White Blood Count 6.1 x10^3/uL (4.0-11.0) Red Blood Count 4.01 x10^6/uL (4.30-5.70) Hemoglobin 13.4 g/dL (13.0-17.5) Hematocrit 38.4 % (39.0-53.0) Mean Corpuscular Volume 96 fL (79-100) Mean Corpuscular Hemoglobin 34 pg (25-35) Mean Corpuscular Hemoglobin Concent 35 g/dL (31-37) Red Cell Distribution Width 14.5 % (11.5-14.5) Platelet Count 147 x10^3/uL (140-400) Neutrophils (%) (Auto) 50 % (31-73) Lymphocytes (%) (Auto) 34 % (24-48) Monocytes (%) (Auto) 12 % (0-9) Eosinophils (%) (Auto) 3 % (0-3) Basophils (%) (Auto) 1 % (0-3) Neutrophils # (Auto) 3.1 x10^3/uL (1.8-7.7) Lymphocytes # (Auto) 2.1 x10^3/uL (1.0-4.8) Monocytes # (Auto) 0.8 x10^3/uL (0.0-1.1) Eosinophils # (Auto) 0.2 x10^3/uL (0.0-0.7) Basophils # (Auto) 0.0 x10^3/uL (0.0-0.2) Sodium Level 141 mmol/L (136-145) Potassium Level 3.7 mmol/L (3.5-5.1) Chloride Level 107 mmol/L (98-107) Carbon Dioxide Level 24 mmol/L (21-32) Anion Gap 10 (6-14) Blood Urea Nitrogen 4 mg/dL (8-26) Creatinine 1.0 mg/dL (0.7-1.3) Estimated GFR (Cockcroft-Gault) 71.9 Glucose Level 91 mg/dL (70-99) Calcium Level 8.1 mg/dL (8.5-10.1) Magnesium Level 2.0 mg/dL (1.8-2.4) Coronavirus (PCR) Not detected (Not Detected) Medications Current Medications Sodium Chloride 1,000 ml @ 1,000 mls/hr 1X ONCE IV Last administered on 12/12/20at 03:20; Start 12/12/20 at 03:00; Stop 12/12/20 at 03:59; Status DC Aspirin (Aspirin Chewable) 324 mg 1X ONCE PO ; Start 12/12/20 at 03:15; Stop 12/12/20 at 03:10; Status DC Aspirin (Aspirin Rectal Supp) 300 mg 1X ONCE [place] Last administered on 12/12/20at 03:20; Start 12/12/20 at 03:30; Stop 12/12/20 at 03:31; Status DC Sodium Chloride 1,000 ml @ 100 mls/hr 1X ONCE IV Last administered on 12/12/20at 03:34; Start 12/12/20 at 04:00; Stop 12/12/20 at 13:59; Status DC Ondansetron HCl (Zofran) 4 mg PRN Q8HRS PRN IV NAUSEA/VOMITING 1ST CHOICE; Start 12/12/20 at 03:45; Stop 12/13/20 at 03:44; Status DC Lactulose (Lactulose) 30 gm Q4HRS PO Last administered on 12/13/20at 13:11; Start 12/12/20 at 04:30 Lorazepam (Ativan Inj) 1 mg PRN Q4HRS PRN IVP TREMORS; Start 12/12/20 at 04:30; Stop 12/13/20 at 04:29; Status DC Potassium Chloride (Klor-Con) 20 meq 1X ONCE PO Last administered on 12/12/20at 10:11; Start 12/12/20 at 09:30; Stop 12/12/20 at 09:31; Status DC Levothyroxine Sodium (Synthroid) 112 mcg DAILY PO Last administered on 12/14/20at 09:37; Start 12/12/20 at 09:30 Metoprolol Succinate (Toprol Xl) 12.5 mg DAILY PO Last administered on 12/14/20at 09:35; Start 12/12/20 at 09:30 Pantoprazole Sodium (Protonix) 40 mg DAILYAC PO Last administered on 12/14/20at 09:33; Start 12/12/20 at 11:30 Aspirin (Ecotrin) 81 mg DAILYWBKFT PO Last administered on 12/14/20at 09:32; Start 12/12/20 at 09:30 Clopidogrel Bisulfate (Plavix) 75 mg DAILY PO Last administered on 12/14/20at 09:36; Start 12/12/20 at 10:00 Acetaminophen (Tylenol) 650 mg PRN Q6HRS PRN PO MILD PAIN / TEMP > 100.3'F Last administered on 12/12/20at 10:12; Start 12/12/20 at 09:45 Heparin Sodium (Porcine) (Heparin Sodium) 5,000 unit Q12HR SQ Last administered on 12/14/20at 09:42; Start 12/12/20 at 10:00 Menthol/Methyl Salicylate (Bengay Greaseless Cream) 1 jacinta PRN QID PRN TP MUSCLE PAIN; Start 12/12/20 at 10:15 Perflutren Protein Type A Microsphe (Optison) 0.66 mg STK-MED ONCE IV ; Start 12/13/20 at 11:45; Stop 12/13/20 at 11:45; Status DC Tizanidine HCl (Zanaflex) 4 mg PRN Q8HRS PRN PO MUSCLE SPASMS; Start 12/13/20 at 14:30 Lidocaine (Lidoderm) 1 patch DAILY TD Last administered on 12/14/20at 09:32; Start 12/13/20 at 15:00 Miscellaneous (Lidoderm Patch Removal) 1 ea QHS ; Start 12/13/20 at 21:00 Perflutren Protein Type A Microsphe (Optison) 0.66 mg 1X ONCE IV Last administered on 12/13/20at 14:53; Start 12/13/20 at 15:00; Stop 12/13/20 at 15:01; Status DC Active Scripts Active Lidocaine PATCH (Lidocaine) 1 Each Adh..patch 1 Patch TD DAILY 30 Days Bengay Greaseless Cream (Methyl Salicylate/Menthol) 57 Gm Cream..g. 1 Jacinta TP PRN QID PRN 15 Days Tylenol (Acetaminophen) 325 Mg Tablet 650 Mg PO PRN Q6HRS PRN 30 Days Aspirin Ec (Aspirin) 81 Mg Tablet. 81 Mg PO DAILYWBKFT 30 Days Reported Levothyroxine Sodium 112 Mcg Tablet 1 Tab PO DAILY Clopidogrel (Clopidogrel Bisulfate) 75 Mg Tablet 75 Mg PO DAILY Omeprazole 20 Mg Capsule. 20 Mg PO DAILY Metoprolol Succinate ( Xl ) (Metoprolol Succinate) 25 Mg Tab.er.24h 0.5 Tab PO DAILY Vitals/I & O Vital Sign - Last 24 Hours 12/13/20 12/13/20 12/13/20 12/13/20 15:00 19:00 19:00 23:00 Temp 98.5 98.6 97.8 98.5 98.6 97.8 Pulse 59 62 65 Resp 16 18 18 B/P (MAP) 140/67 (91) 137/73 (94) 129/70 (89) Pulse Ox 96 98 97 O2 Delivery Room Air Room Air Room Air Room Air 12/14/20 12/14/20 12/14/20 12/14/20 03:00 07:00 08:00 09:35 Temp 98.7 97.4 98.7 97.4 Pulse 67 53 62 Resp 18 16 B/P (MAP) 130/74 (92) 126/63 (84) 126/63 Pulse Ox 98 97 O2 Delivery Room Air Room Air Room Air 12/14/20 11:00 Temp 98.2 98.2 Pulse 55 Resp 16 B/P (MAP) 108/59 (75) Pulse Ox 96 Intake and Output 12/13/20 12/13/20 12/14/20 15:00 23:00 07:00 Intake Total 480 ml 120 ml Balance 480 ml 120 ml Justicifation of Admission Dx: Justifications for Admission: Justification of Admission Dx: Yes CARLOTA JIANG MD Dec 14, 2020 13:02
== END 2020-12-14 13:30 | disposition home health service (06) | DRG 101 ==
LOC: ER 02:05 → 5 NORTH 03:55
PROVIDERS: ADMIT Internal Medicine; ATTEND Internal Medicine
PROC: 4A10X4Z Monitoring of Central Nervous Electrical Activity, External Approach (ICD-10-PCS; principal; 2020-12-12)
DX: G40.909 Epilepsy, unspecified, not intractable, without status epilepticus (principal); E87.2 Acidosis; I69.354 Hemiplegia and hemiparesis following cerebral infarction affecting left non-dominant side; I24.8 Other forms of acute ischemic heart disease; M48.56XA Collapsed vertebra, not elsewhere classified, lumbar region, initial encounter for fracture; I10 Essential (primary) hypertension; F20.9 Schizophrenia, unspecified; I44.7 Left bundle-branch block, unspecified; E03.9 Hypothyroidism, unspecified; M41.9 Scoliosis, unspecified; M16.0 Bilateral primary osteoarthritis of hip; H91.90 Unspecified hearing loss, unspecified ear; G93.89 Other specified disorders of brain; R77.8 Other specified abnormalities of plasma proteins; R55 Syncope and collapse; R41.89 Other symptoms and signs involving cognitive functions and awareness; K40.90 Unilateral inguinal hernia, without obstruction or gangrene, not specified as recurrent; G62.9 Polyneuropathy, unspecified; I27.20 Pulmonary hypertension, unspecified; I48.0 Paroxysmal atrial fibrillation; M54.6 Pain in thoracic spine; I08.1 Rheumatic disorders of both mitral and tricuspid valves; M24.512 Contracture, left shoulder; R00.1 Bradycardia, unspecified; K21.9 Gastro-esophageal reflux disease without esophagitis; M24.542 Contracture, left hand; Z20.822 Contact with and (suspected) exposure to COVID-19; M24.532 Contracture, left wrist; Z91.81 History of falling; Z91.19 Patient's noncompliance with other medical treatment and regimen; Z90.49 Acquired absence of other specified parts of digestive tract; Z87.891 Personal history of nicotine dependence; Z87.11 Personal history of peptic ulcer disease; Z82.0 Family history of epilepsy and other diseases of the nervous system; I69.398 Other sequelae of cerebral infarction; Z80.0 Family history of malignant neoplasm of digestive organs; Z98.42 Cataract extraction status, left eye; Z98.41 Cataract extraction status, right eye; Z88.8 Allergy status to other drugs, medicaments and biological substances
CPT/HCPCS: 96360; 99285; C8929; 36415; 70450; 71045; 72072; 72100; 72125; 72170; 80048; 80053; 82140; 82553; 83605; 83735; 84484; 85007; 85025; 85610; 85730; 93005; 94799; 95816; G0480; J1644; J7030; Q9956; U0003; 97116-GP; G0378

== ENCOUNTER 2020-12-22 06:08 | Emergency (ER) | payer MEDICARE, OTHER ==
[~2020-12-22] VITALS: Ht 188 cm; Wt 91.0 kg
[~2020-12-22 06:08] MED LIST changes: +ACET325T9 PO; +LEVO112T49 PO; +LIDO700A21 TD; +METH57CR17 TP
--- NOTE | 2020-12-22 06:32 | PHYS DOC ---
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 Patient reports no associated abdominal pain or fever. Patient unsure if he was on any antibiotics during his prior hospital admission. Review of Systems: Review of Systems: Constitutional: Denies fever or chills. [] Eyes: Denies change in visual acuity. [] HENT: Denies nasal congestion or sore throat. [] Respiratory: Denies shortness of breath. [] Cardiovascular: Denies chest pain or edema. [] GI: Denies abdominal pain, nausea, vomiting, bloody stools or diarrhea. [] : Denies dysuria. [] Musculoskeletal: Denies back pain or joint pain. [] Integument: Denies rash. [] Neurologic: Denies headache, focal weakness or sensory changes. [] Endocrine: Denies polyuria or polydipsia. [] Lymphatic: Denies swollen glands. [] Psychiatric: Denies depression or anxiety. [] Heart Score: Risk Factors: Risk Factors: DM, Current or recent (<one month) smoker, HTN, HLP, family history of CAD, obesity. Risk Scores: Score 0 - 3: 2.5% MACE over next 6 weeks - Discharge Home Score 4 - 6: 20.3% MACE over next 6 weeks - Admit for Clinical Observation Score 7 - 10: 72.7% MACE over next 6 weeks - Early Invasive Strategies Allergies: Allergies: Allergies Coded Allergies Type Severity Reaction Last Updated Verified chlorpheniramine Allergy Intermediate 07/03/16 Yes oxymetazoline Allergy Intermediate 07/03/16 Yes pheniramine Allergy Intermediate 07/03/16 Yes phenylephrine Allergy Intermediate 07/03/16 Yes pseudoephedrine Allergy Intermediate 07/03/16 Yes Physical Exam: PE: Constitutional: no acute distress, non-toxic appearance. dandruff in scalp/clothing HENT: Normocephalic, atraumatic, moist mucous membranes, yellow rheum left eye Eyes: EOMI, conjunctiva normal, Neck: Normal range of motion, supple, Cardiovascular: S1/2 present, bradycardia Lungs & Thorax: Speaking in full sentences, bilateral equal chest rise, no tachypnea or increased work of breathing Abdomen: soft, no tenderness, no Rovsing sign, no Agrawal sign, no pain at McBurney's point, no rigidity or guarding, old lap scars from cholecystectomy Skin: Warm, dry, no erythema, no rash. [] Extremities: No tenderness, no cyanosis, hemosiderin deposition both legs-pvd, scab over left barbour from old wound, left hand flaccid/no movement-from prior cva Neurologic: Alert and oriented X 3, normal motor function, normal sensory function, no focal deficits noted. [] Psychologic: Affect normal, judgement normal, mood normal. [] EKG: EKG: sinus bradycardia at 55bpm, NAD, LBBB, no TWI, no YADIEL/STDs Radiology/Procedures: Radiology/Procedures: []IMAGING REPORT Signed PATIENT: DIMITRI PIZANO ACCOUNT: [id number] : 1940 LOCATION: ER AGE: 80 SEX: M EXAM STATUS: REG ER ORD. PHYSICIAN: LALO MONTOYA DO REASON: cough PROCEDURE: CHEST AP ONLY XR CHEST 1V Clinical Indication: Reason: cough / Spl. Instructions: / History: Comparison: AP chest December 12, 2020. Findings: Atherosclerotic aortic arch. The cardiomediastinal silhouette is normal. Lungs are clear. There is no pneumothorax. No pleural effusion is appreciated. No acute bone abnormality. There is left posterior fourth rib fracture. IMPRESSION: No acute cardiopulmonary process. Electronically signed by: Cristo Flores MD (12/22/2020 7:03 AM) [facility], [place] DICTATED and SIGNED BY: CRISTO FLORES MD DATE: 12/22/20 [id number] Course & Med Decision Making: Course & Med Decision Making Pertinent Labs and Imaging studies reviewed. (See chart for details) COVID-19 CRITERIA: The patient was evaluated during the global COVID-19 pandemic, and that diagnosis was suspected/considered upon their initial presentation. Their evaluation, treatment and testing was consistent with current guidelines for patients who present with complaints or symptoms that may be related to COVID-19. Concern for dry cough and 2 loose bowel movements -no active diarrhea in the ED. Chest x-ray normal with no infiltrates or atypical presentation resembling Covid. Given symptoms I tested for Covid but do not have a strong suspicion patient has it. I reviewed H&P from 8 days ago-does not appear patient was on antibiotics. Low suspicion for C. difficile given patient's presentation, vital signs and normal white count. Patient is hemodynamically stable with no electrolyte abnormalities. Will discharge home with strict ED return precautions were given for dehydration, bloody bowel movements, fever or persistent/worsening diarrhea. Encouraged urgent outpatient follow-up with PMD within the next 5 days. Life-threatening processes were considered but are low suspicion at this time, given history, physical exam and ED workup. Pt was educated on all prescription medications and adverse effects. All patient's questions were answered and pt was stable at time of discharge. Life/limb-threatening differential includes but is not limited to, GI bleeding, toxigenic versus infectious diarrhea, shock, mesenteric ischemia, electrolyte abnormality, thyroid storm, toxidrome, antibiotic related, head trauma, syncope, malignancy, inflammatory bowel disease or surgical abdomen (appendicitis or diverticulitis). I spoken with the patient and her caregivers. I explained the patient's condi tion, diagnoses and treatment plan based on the information available to me at this time. I have answered the patient and her caregiver's questions and addressed any concerns. The patient and her caregivers have a good understanding of patient's diagnosis, condition and treatment plan as can be expected at this point. Vital signs have been stable. Patient's condition is stable and appropriate for discharge from the emergency department. Patient will pursue further outpatient evaluation with primary care physician or other designated or consulting physician as outlined in the discharge instructions. The patient and/or caregivers are agreeable to this plan of care and follow-up instructions have been explained in detail. The patient and/or caregivers have received these instructions in written form and have expressed an understanding of the discharge instructions. The patient and/or caregivers are aware that any significant change of condition or worsening of symptoms should prompt immediate return to this or the closest emergency department or call to 911. Adri Disclaimer: Adri Disclaimer: This electronic medical record was generated, in whole or in part, using a voice recognition dictation system. Departure Departure Impression: Primary Impression: Person under investigation for COVID-19 Additional Impressions: Diarrhea Cough Disposition: 01 DC HOME SELF CARE/HOMELESS Condition: STABLE Referrals: ANUM CESPEDES MD (PCP) in next 5 days for re-evaluation Patient Instructions: Cough, Adult, Diarrhea Additional Instructions: Return to ED immediately if your oxygen level drops below 90% (purchase a pulse oximetry at a medical supply store), difficulties breathing including rapid breathing or increased work of breathing (skin sucking under ribs), chest pain or stroke-like symptoms (facial droop, speech changes, arm/leg weakness). EMERGENCY DEPARTMENT GENERAL DISCHARGE INSTRUCTIONS Thank you for coming to [facility] Emergency Department (ED) today and trusting us with you care. We trust that you had a positive experience in our Emergency Department. If you wish to speak to the department management, you may call the Director at [phone]. YOUR FOLLOW UP INSTRUCTIONS ARE FOLLOWS: 1. Do you have a private Doctor? If you do not have a private doctor, please ask for a resource list of physicians or clinics that may be able to assist you with follow up care. 2. The Emergency Physicain has interpreted your x-rays. The X-Ray specialist will also review them. If there is a change in the findings, you will be notified in 48 hours when at all possible. 3. A lab test or culture has been done, your results will be reviewed and you will be notified if you need a change in treatment. ADDITIONAL INSTRUCTIONS AND INFORMATION: 1. Your care today has been supervised by a physician who is specially trained in emergency care. Many problems require more than one evaluation for a complete diagnosis and treatment. We recommend that you schedule your follow up appointment as recommended to ensure complete treatment of you illness or injury. If you are unable to obtain follow up care and continue to have a problem, or if your condition worsens, we recommend that you return to the ED. 2. We are not able to safely determine your condition over the phone nor are we able to give sound medical advice over the phone. For these safety reasons, if you call for medical advice we will ask you to come to the ED for further evaluation. 3. If you have any questions regarding these discharge instructions please call the ED at [phone]. SAFETY INFORMATION: In the interest of safety, wellness, and injury prevention; we encourage you to wear your sealbelt, if you smoke; quite smoking, and we encourage family to use a protective helmet for bicycling and other sporting events that present an increased risk for head injury. IF YOUR SYMPTOMS WORSEN OR NEW SYMPTOMS DEVELOP, OR YOU HAVE CONCERNS ABOUT YOUR CONDITION; OR IF YOUR CONDITION WORSENS WHILE YOU ARE WAITING FOR YOUR FOLLOW UP APPOINTMENT; EITHER CONTACT YOUR PRIMARY CARE DOCTOR, THE PHYSICIAN WHOSE NAME AND NUMBER YOU WERE GIVEN, OR RETURN TO THE ED IMMEDIATELY. LALO MONTOYA DO Dec 22, 2020 06:32
[2020-12-22 06:59] LABS: BASO # 0.1 x10^3/uL (0.0-0.2); BASO % 1 % (0-3); EOS # 0.1 x10^3/uL (0.0-0.7); EOS % 2 % (0-3); HEMATOCRIT 40.4 % (39.0-53.0); HEMOGLOBIN 14.2 g/dL (13.0-17.5); LYMPH # 2.5 x10^3/uL (1.0-4.8); LYMPH % 41 % (24-48); MEAN CORPUSCULAR HEMOGLOBIN 34 pg (25-35); MEAN CORPUSCULAR HGB CONC 35 g/dL (31-37); MEAN CORPUSCULAR VOLUME 95 fL (79-100); MONO # 0.7 x10^3/uL (0.0-1.1); MONO % 11 % (0-9); NEUT # 2.8 x10^3/uL (1.8-7.7); NEUT % 46 % (31-73); PLATELET COUNT 225 x10^3/uL (140-400); RED BLOOD COUNT 4.24 x10^6/uL (4.30-5.70); RED CELL DISTRIBUTION WIDTH 14.3 % (11.5-14.5); WHITE BLOOD COUNT 6.2 x10^3/uL (4.0-11.0)
--- NOTE | 2020-12-22 07:05 | RAD ---
XR CHEST 1V Clinical Indication: Reason: cough / Spl. Instructions: / History: Comparison: AP chest December 12, 2020. Findings: Atherosclerotic aortic arch. The cardiomediastinal silhouette is normal. Lungs are clear. There is no pneumothorax. No pleural effusion is appreciated. No acute bone abnormality. There is left posterior fourth rib fracture. IMPRESSION: No acute cardiopulmonary process. Electronically signed by: Cristo Flores MD (12/22/2020 7:03 AM) [facility]
[2020-12-22 07:08] LABS: CALCIUM 8.9 mg/dL (8.5-10.1); GFR 71.9; POTASSIUM 4.1 mmol/L (3.5-5.1)
[2020-12-22 07:14] LABS: ALBUMIN 3.6 g/dL (3.4-5.0); ALBUMIN/GLOBULIN RATIO 0.9 (1.0-1.7); MAGNESIUM 2.2 mg/dL (1.8-2.4); TOTAL BILIRUBIN 0.7 mg/dL (0.2-1.0); TOTAL PROTEIN 7.4 g/dL (6.4-8.2)
[2020-12-22 08:47] VITALS: BP 110/57
--- NOTE | 2020-12-23 09:12 | NUR ---
IP: Attempted to contact pt concerning COVID results. No answer. Left a voicemail to return the call.
--- NOTE | 2020-12-27 16:57 | NUR ---
IP: Son ot pt called to get results. Informed I would only release that to the pt without permission. His phone was put on speaker, pt verified his name and . Informed pt of negative COVID test. Both verbalized understanding.
== END 2020-12-22 09:30 | disposition home or self-care (01) ==
LOC: ER 06:08
DX: R05 Cough (principal); Z20.822 Contact with and (suspected) exposure to COVID-19; R19.7 Diarrhea, unspecified; K21.9 Gastro-esophageal reflux disease without esophagitis; I48.91 Unspecified atrial fibrillation; I10 Essential (primary) hypertension; E03.9 Hypothyroidism, unspecified; F20.9 Schizophrenia, unspecified; Z86.73 Personal history of transient ischemic attack (TIA), and cerebral infarction without residual deficits; Z98.890 Other specified postprocedural states; Z87.891 Personal history of nicotine dependence; Z88.8 Allergy status to other drugs, medicaments and biological substances; Z88.6 Allergy status to analgesic agent
CPT/HCPCS: 36415; 71045; 80053; 82550; 83735; 84484; 85025; 93005; 99285; C9803; U0003

== ENCOUNTER → 2020-12-27 | Outpatient (CLI) | payer MEDICARE, OTHER ==
[2020-12-22 08:47] VITALS: BP 110/57
--- NOTE | 2020-12-28 09:06 | SLEEP ---
DATE OF STUDY: 12/27/2020 OBJECTIVE: The patient is an 80-year-old male with a nocturnal seizure, rule out sleep apnea. Height 6 feet 0 inches, weight 180 pounds, body mass index 25. Houston sleep score 11. INTERPRETATION: Sleep architecture is characterized by sleep efficiency of 80% across the 7.9 hours of recording time. Stage volumes are appropriate for age. Sleep onset latency is 21 minutes. Respiratory monitoring shows a total of 49 events for an apnea-hypopnea index of 7.7 events per hour of sleep. Initially, most of the events are obstructive in nature, but a few central apneas occur during treatment. The patient is started on treatment and at a setting of 11 cm, the apnea/hypopnea index is 5.8 events per hour. The minimum oxygen saturation is 89%. No significant cardiac arrhythmias are seen. Periodic limb movements of sleep occur at the rate of 40 per hour, 2 per hour associated with arousal. IMPRESSION: Abnormal polysomnogram showing obstructive sleep apnea and hypopnea, treatable with CPAP at a setting of 11 cm using a Respironics DreamWear nasal pillow, medium size. Also present are some periodic limb movements of sleep. RECOMMENDATIONS: 1. My office will attempt to arrange this setting for the patient and he will follow up in my clinic. 2. The patient should pursue weight loss and avoid sedatives and alcohol. Thank you for letting us help with the patient's care. CARLOTA JIANG MD DR: BRUNO/elan JOB#: [id number] / [id number] ANUM Bill MD
== END ==
LOC: SLPLAB 19:14
PROVIDERS: ATTEND Psychiatry & Neurology Neurology with Special Qualifications in Child Neurology
DX: G47.33 Obstructive sleep apnea (adult) (pediatric) (principal)
CPT/HCPCS: 95810

== ENCOUNTER 2021-07-27 15:43 | Emergency (ER) | payer MEDICARE, OTHER ==
[~2021-07-27] VITALS: Ht 177.8 cm; Wt 102.0 kg
--- NOTE | 2021-07-27 16:52 | RAD ---
Exam: CT head, maxillofacial and cervical spine INDICATION: Fall, facial injury TECHNIQUE: Sequential axial images through the head, maxillofacial and cervical spine were obtained w ithout the administration of IV contrast. Exposure: One or more of the following in the visualized dose reduction techniques were utilized for this examination: 1. Automated exposure control 2. Adjustment of the MA and/or KV according to patient size 3. Use of iterative of reconstructive technique Comparisons: None FINDINGS: Head: No focal parenchymal lesion or hemorrhage is identified. There is no midline shift or sulcal effaceme nt. Chronic ischemic change noted throughout the right cerebral hemisphere similar when compared to the p rior exam. No acute vascular territory infarction is identified. Davidson-white distinction is preserved. The ventricular system is within normal limits without compression hydrocephalus. The basal cisterns are well maintained. Face: Globes and orbital contents are normal. The visualized portions of the paranasal sinuses and mastoid air cells are well-pneumatized. No acute fractures. Cervical spine: Straightening of cervical spine which may be positional. Vertebral body heights are well-maintained. Fracture to the cervical spine is not identified. Multilevel spondylotic change in the cervical spine with degenerative disc disease greatest at C4-C5, and C5-C6. Mild bilateral facet arthropathy is also noted in the cervical spine. Visualized soft tissues are unremarkable. IMPRESSION: 1. No acute intracranial abnormality. 2. No acute traumatic injury at the face. 3. Negative CT C-spine for acute traumatic injury. Electronically signed by: Johnathan Potts MD (07/27/2021 4:50 PM) [facility]
--- NOTE | 2021-07-27 17:10 | PHYS DOC ---
Past Medical History Past Medical History: CVA, Seizure, Schizophrenia Additional Past Medical Histor: bradycardia, stroke x6 Past Surgical History: Other Additional Past Surgical Histo: "OPEN HEART", hernia Smoking Status: Unknown if ever smoked Alcohol Use: None Drug Use: None General Adult EDM: Chief Complaint: MECHANICAL FALL HPI: HPI: Patient is a 81 year old male with history of CVA with left-sided deficit, who presents to the ED today from a senior care to be evaluated after falling. Patient states he was walking with his cane, he tripped and fell face forward. Patient denies any loss of consciousness. Denies any neck pain, mid or low back pain. Patient states he is on Plavix. Review of Systems: Review of Systems: Constitutional: Denies fever or chills. [] Eyes: Denies change in visual acuity. [] HENT: Denies nasal congestion or sore throat. [] Respiratory: Denies cough or shortness of breath. [] Cardiovascular: Denies chest pain or edema. [] GI: Denies abdominal pain, nausea, vomiting, bloody stools or diarrhea. [] : Denies dysuria. [] Musculoskeletal: Denies back pain or joint pain. [] Integument: Reports facial lacerations from falling Neurologic: Denies headache, focal weakness or sensory changes. [] Psychiatric: Denies depression or anxiety. [] Heart Score: C/O Chest Pain: N/A Risk Factors: Risk Factors: DM, Current or recent (<one month) smoker, HTN, HLP, family history of CAD, obesity. Risk Scores: Score 0 - 3: 2.5% MACE over next 6 weeks - Discharge Home Score 4 - 6: 20.3% MACE over next 6 weeks - Admit for Clinical Observation Score 7 - 10: 72.7% MACE over next 6 weeks - Early Invasive Strategies Allergies: Allergies: Allergies Coded Allergies Type Severity Reaction Last Updated Verified chlorpheniramine Allergy Intermediate 07/27/21 Yes oxymetazoline Allergy Intermediate 07/27/21 Yes pheniramine Allergy Intermediate 07/27/21 Yes phenylephrine Allergy Intermediate 07/27/21 Yes pseudoephedrine Allergy Intermediate 07/27/21 Yes Physical Exam: PE: Constitutional: Well developed, well nourished, no acute distress, non-toxic appearance. [] HENT: Normocephalic, bilateral external ears normal, oropharynx moist, no oral exudates, nose normal. Very hard on hearing Eyes:Periorbital ecchymosis noted on left lower eyelids worse no entrapment syndrome. PERRLA, EOMI, conjunctiva normal, no discharge. Neck: Normal range of motion, no tenderness, supple, no stridor. [] Cardiovascular:Heart rate regular rhythm, no murmur [] Lungs & Thorax: Bilateral breath sounds clear to auscultation [] Abdomen: Bowel sounds normal, soft, no tenderness, no masses, no pulsatile masses. [] Skin: Nasal bridge with a superficial laceration approximately 0.5 cm. Skin tear noted below the left lower eyelid roughly 2 cm long. Back: No tenderness, no CVA tenderness. [] Extremities: No tenderness, no cyanosis, no clubbing, ROM intact, no edema. [] Neurologic: Alert and oriented X 3, normal motor function, normal sensory function, no focal deficits noted. Cranial nerves II through XII intact Psychologic: Affect normal, judgement normal, mood normal. [] Current Patient Data: Vital Signs: Vital Signs Date Time Temp Pulse Resp B/P (MAP) Pulse Ox O2 Delivery O2 Flow Rate FiO2 07/27/21 15:56 100.5 90 18 143/77 94 Room Air 100.5 EKG: EKG: [] Radiology/Procedures: Radiology/Procedures: []PROCEDURE: CT MAXILLOFACIAL WO CONTRAST Exam: CT head, maxillofacial and cervical spine INDICATION: Fall, facial injury TECHNIQUE: Sequential axial images through the head, maxillofacial and cervical spine were obtained without the administration of IV contrast. Exposure: One or more of the following in the visualized dose reduction techniques were utilized for this examination: 1. Automated exposure control 2. Adjustment of the MA and/or KV according to patient size 3. Use of iterative of reconstructive technique Comparisons: None FINDINGS: Head: No focal parenchymal lesion or hemorrhage is identified. There is no midline shift or sulcal effacement. Chronic ischemic change noted throughout the right cerebral hemisphere similar when compared to the prior exam. No acute vascular territory infarction is identified. Davidson-white distinction is preserved. The ventricular system is within normal limits without compression hydrocephalus. The basal cisterns are well maintained. Face: Globes and orbital contents are normal. The visualized portions of the paranasal sinuses and mastoid air cells are well-pneumatized. No acute fractures. Cervical spine: Straightening of cervical spine which may be positional. Vertebral body heights are well-maintained. Fracture to the cervical spine is not identified. Multilevel spondylotic change in the cervical spine with degenerative disc disease greatest at C4-C5, and C5-C6. Mild bilateral facet arthropathy is also noted in the cervical spine. Visualized soft tissues are unremarkable. IMPRESSION: 1. No acute intracranial abnormality. 2. No acute traumatic injury at the face. 3. Negative CT C-spine for acute traumatic injury. Electronically signed by: Kris Boyer MD (07/27/2021 4:50 PM) [facility] DICTATED and SIGNED BY: KRIS BOYER MD DATE: 07/27/21 [id number] 0 Course & Med Decision Making: Course & Med Decision Making Pertinent Labs and Imaging studies reviewed. (See chart for details) This is a 81-year-old male patient who presents to the ED today to be evaluated after tripping and falling at the senior care. CT of the head, cervical spine and maxillofacial are negative for any acute findings. Tetanus up-to-date. Discharge to senior care. Return precautions provided. Dragon Disclaimer: Dragon Disclaimer: This electronic medical record was generated, in whole or in part, using a voice recognition dictation system. Departure Departure Impression: Primary Impression: Fall from standing Qualified Codes: W19.XXXA - Unspecified fall, initial encounter Additional Impressions: Facial contusion Qualified Codes: S00.83XA - Contusion of other part of head, initial encounter Facial laceration Qualified Codes: S01.81XA - Laceration without foreign body of other part of head, initial encounter Disposition: 01 HOME / SELF CARE / HOMELESS Condition: STABLE Referrals: ANTONIA GARDNER MD (PCP) Follow-up with your doctor in 1 to 2 weeks Patient Instructions: Fall Prevention and Home Safety Additional Instructions: You were evaluated in the emergency room after falling, your CT of the head, face and neck are negative for any acute findings. Please apply Neosporin to the laceration site. Try to ice and elevate the head of your bed while resting. Follow-up with your doctor next week CORI HODGES APRN Jul 27, 2021 17:10
[2021-07-27 17:58] VITALS: BP 142/70
== END 2021-07-27 20:16 | disposition home or self-care (01) ==
LOC: ER 15:43
DX: S01.81XA Laceration without foreign body of other part of head, initial encounter (principal); F20.9 Schizophrenia, unspecified; Z86.73 Personal history of transient ischemic attack (TIA), and cerebral infarction without residual deficits; Z88.8 Allergy status to other drugs, medicaments and biological substances; W01.0XXA Fall on same level from slipping, tripping and stumbling without subsequent striking against object, initial encounter; Y93.89 Activity, other specified; Y92.89 Other specified places as the place of occurrence of the external cause; Y99.8 Other external cause status
CPT/HCPCS: 70450; 70486; 72125; 99285-25

== ENCOUNTER → 2021-08-18 | Outpatient (CLI) | payer MEDICARE, OTHER ==
[2021-07-27 17:58] VITALS: BP 142/70
--- NOTE | 2021-08-18 16:27 | RAD ---
Examination: CT left left humerus without contrast HISTORY: History of injury, fracture COMPARISON: None available TECHNIQUE: Axial CT images of the left upper humerus were performed without contrast. Coronal and sag ittal reformats are performed Exposure: One or more of the following individualized dose reduction techniques were utilized for thi s examination: 1. Automated exposure control 2. Adjustment of the mA and/or kV according to patient size 3. Use of iterative reconstruction technique FINDINGS: The humerus head is within the glenoid. Mild joint space loss left shoulder joint likely de generative changes. There is faint lucency identified in the posterior cortex of the greater tuberosi ty of the humerus. Mild degenerative changes acromioclavicular joint. Acromion is type II. IMPRESSION: 1. Faint lucency identified in the posterior cortex of the greater tuberosity of the humerus, best vi sualized on series 6 image 32, subtle nondisplaced fracture 2. Mild degenerative changes glenohumeral joint, carpometacarpal joint. Electronically signed by: Boris Perkins MD (08/18/2021 4:25 PM) [id number]
== END ==
LOC: CT 14:50
PROVIDERS: ATTEND Nurse Practitioner Gerontology
DX: S42.255A Nondisplaced fracture of greater tuberosity of left humerus, initial encounter for closed fracture (principal); M19.012 Primary osteoarthritis, left shoulder; M19.042 Primary osteoarthritis, left hand; X58.XXXA Exposure to other specified factors, initial encounter; Y93.89 Activity, other specified; Y92.89 Other specified places as the place of occurrence of the external cause; Y99.8 Other external cause status
CPT/HCPCS: 73200